=== PATIENT | male | born 1955 | race Caucasian/White ===

== ENCOUNTER 2023-07-13 04:15 | Emergency (ER) | payer MEDICARE, MEDICAID, SELFPAY ==
[2023-07-13 04:28] VITALS: BP 141/71; PULSE 55; RESP 16; O2SAT 100; BMI 24.3
--- NOTE | 2023-07-13 05:03 | ED_ITS ---
HPI - General Adult General Chief complaint: ETOH/Substance Use Stated complaint: ANXIETY AND ETOH Time Seen by Provider: 07/13/23 05:03 Source: patient Mode of arrival: EMS History of Present Illness HPI narrative: 67-year-old male who states that he accidentally called 911 twice and as per EMS they had informed him that he felt like he was having a heart attack which patient adamantly denies at this time. Patient refused transportation the 1st time but then states that he was talked into it on the 2nd time. Related Data Allergies Allergy/AdvReac Type Severity Reaction Status Date / Time Unable to Assess Allergy Verified 07/13/23 04:52 Review of Systems Review of Systems: Pertinent positives and negatives as stated in HPI PMFSH Past Medical History Source: nursing notes reviewed Social History Social History Advance Directives: No Advance Directives Information Provided: No Physical Exam ED Vital Signs: Vital Signs - 24 hr 07/13/23 04:28 Pulse Rate 55 Respiratory Rate 16 Blood Pressure 141/71 H Pulse Oximetry 100 Oxygen Delivery Method Room Air BMI result Body Mass Index 24.3 VITAL SIGNS: Reviewed. GENERAL: Well developed, well nourished, in no acute distress. HEAD: Normocephalic/atraumatic EYES: PERRLA, EOMI LUNGS: Normal breath sounds. No adventitious sounds or accessory muscle use. SpO2<100> CARDIOVASCULAR: Regular rate and rhythm without noted murmurs ABDOMEN: Soft, non-tender, non-distended with bowel sounds. MUSCULOSKELETAL: No tenderness, deformities, or effusions noted on gross inspection. EXTREMITIES: No cyanosis, clubbing or edema. SKIN: Inspection of the skin reveals no rashes NEUROLOGIC: Alert and oriented x 4. Strength and sensation to light touch were grossly intact x 4. Medical Decision Making Medical Decision Making MDM Narrative: 67-year-old male with history and clinical presentation of having been transported to the emergency room without wanting to be here . Patient is declining all EKGs/attempts to draw lab work, on ambulating with the patient he is observed to ambulate with a steady gait he is not noted to be slurring his words and he is alert and oriented. Patient demanded to be allowed to sign out against medical advice and after a discussion of risks and benefits he was discharged against medical advice. Differential Diagnosis Differential Diagnoses: The differential diagnosis associated with the pres entation includes Please see the discussion above Admission/Observation Consideration of admission/observation: Escalation of care including admission/observation considered Please see the discussion above Critical Care Time Critical Care Time Critical Care Time: Yes Total Critical Care Time: 30 Attestation: I personally attest to this time spent taking care of the patient. Discharge Plan Discharge Clinical Impression: Chest pain Patient Disposition: Left Against Medical Advice Instructions: Chest Pain (ED) Additional Instructions: Please follow-up with primary care doctor in the morning. Stand Alone Forms: Against Medical Advice Interventions: ED Discharge Assessment Last Done: 07/13/23 05:11 Discharge Date/Time: 07/13/23 05:12
--- NOTE | 2023-07-13 05:05 | PC.NURSE ---
Pt presents to ED with ETOH. He called 911 twice saying he felt like he had a heart attack. Pt stated he accidentally called. Pt began yelling at staff stating he was going to leave AMA beginning as soon as he got off the EMS stretcher. I attempted to get an EKG on the pt and he refused, saying he doesn't need to prove anything and he wants to go home. Dr Her assessed the pt and determined he can be discharged.
== END 2023-07-13 05:12 | disposition left against medical advice (07) ==
LOC: HO.ED 05:11
PROVIDERS: Emergency Provider Student in an Organized Health Care Education/Training Program
DX: R07.9 Chest pain, unspecified (principal)
CPT/HCPCS: 93005; 99282; 99283

== ENCOUNTER 2023-12-01 20:56 | Inpatient (IN) | payer OTHER, SELFPAY ==
--- NOTE | 2023-12-01 | ECG_ITS ---
Test Reason : BRADYCARDIA Blood Pressure : / mmHG Vent. Rate : 046 BPM Atrial Rate : 046 BPM P-R Int : 190 ms QRS Dur : 088 ms QT Int : 530 ms P-R-T Axes : 050 011 037 degrees QTc Int : 463 ms Sinus bradycardia Otherwise normal ECG No previous ECGs available Referred By: Generic ED Physician Electronically Signed By:LALA VILCHIS MD
--- NOTE | ~2023-12-01 | XR_ITS ---
EXAMINATION: XR CHEST CLINICAL INFORMATION: Weakness COMPARISON: None available. TECHNIQUE: Upright frontal portable view of the chest was obtained. FINDINGS: Devices overlie the patient. There is rotation to left. There is calcification of the aorta. The cardiac size is within normal limits. There is no hilar mass. There is no alveolar edema. The diaphragm is high. There is no focal pneumonia, pleural fluid or pneumothorax. I suspect convex right lower thoracic scoliosis. XR/XR chest 1V IMPRESSION: No pneumonia or edema.
--- NOTE | ~2023-12-01 | CT_ITS ---
EXAMINATION: CT HEAD WITHOUT CONTRAST CLINICAL INFORMATION: Change in mental status. COMPARISON: None available. TECHNIQUE: Contiguous axial imaging was performed from the skull base to vertex without intravenous administration of contrast. This CT examination was performed using dose optimization techniques as appropriate, variously including the following: *Automated exposure control. *Adjustment of mA and/or kV according to patient size (this includes techniques or standardized protocols for targeted exams where dose is matched to indication/reason for exam; i.e. extremities or head). *Use of iterative reconstruction technique. DLP: 836 mGy-cm FINDINGS: The ventricles and sulci are mildly prominent consistent with diffuse atrophy. No visualized masses or midline shift are seen. There is no intra-axial or extra-axial hemorrhage. There are no fluid collections. Mild decreased attenuation is seen in the periventricular white matter compatible with chronic small vessel ischemic disease. The waggoner-white discrimination is preserved. The included paranasal sinuses and mastoid air cells are well aerated. The calvarium is intact. CT/CT head/brain wo IV con IMPRESSION: No intracranial hemorrhage or mass effect. Mild generalized atrophy and chronic small vessel white matter ischemic changes.
[2023-12-01 21:12] VITALS: BP 98/57; PULSE 49; O2SAT 85
[2023-12-01 21:16] VITALS: BP 95/49; PULSE 46; RESP 16; TEMP 36.8; O2SAT 96; BMI 26.5
[2023-12-01 21:20] LABS: MANUAL DIFF FLAG NO
[2023-12-01 21:23] LABS: Basophils Absolute Auto 0.1 X10*3/uL (0.0-0.2); Basophils Percent Auto 0.9 % (0-2); Eosinophils Absolute Auto 0.2 X10*3/uL (0.0-0.4); Eosinophils Percent Auto 3.5 % (0-4); Hematocrit 29.6 % (42.0-52.0); Hemoglobin 10.4 g/dl (14.0-18.0); Imm Gran Abs Auto 0.02 X10*3/uL (0.00-0.03); Imm Gran Pct Auto 0.3 % (0.0-0.4); Lymphocytes Absolute Auto 1.2 X10*3/uL (1.2-4.9); Lymphocytes Percent Auto 21.5 % (20-40); Mean Corpuscular HGB Conc 35.1 g/dl (31.0-36.0); Mean Corpuscular Hemoglobin 32.6 pg (27.0-33.0); Mean Corpuscular Volume 92.8 fL (80.0-98.0); Mean Platelet Volume 11.3 fL (9.4-12.4); Monocytes Absolute Auto 0.7 X10*3/uL (0.1-1.2); Monocytes Percent Auto 12.7 % (2-11); Neutrophils Absolute Auto 3.5 x10*3/uL (2.0-8.3); Neutrophils Percent Auto 61.1 % (45-73); Platelet Count 213 X10*3/uL (160-400); Red Blood Count 3.19 X10*6/uL (4.60-5.80); Red Cell Distribution Width 12.4 % (11.0-16.0); White Blood Count 5.8 X10*3/uL (4.8-10.8)
--- OUTSIDE RECORDS SUMMARY | 2023-12-01 21:44 | XMS_ITS | Continuity of Care Document ---
Author Organization [facility] Address [address] [place] [address]- Care Team Providers Care Rehabilitation Attendant Name Role Phone Kirk Bahena MD Primary Care Physician [phone] Encounter [facility] Date(s): 09/12/21 - 10/12/21 [facility] [address] [place] [address]- Allergies, Adverse Reactions, Alerts No Known Allergies Immunizations Given and Recorded Vaccine Date Status Refusal Reason tetanus/diphtheria/pertussis, acel(Tdap) 10/07/14 Given Not Given Vaccine Date Status Refusal Reason pneumococcal 13-valent vaccine 01/28/20 Not Given Patient Refuses influenza virus vaccine, inactivated 01/28/20 Not Given Patient Refuses Medications clonazePAM 1 mg oral tablet 1 tablet = 1 mg, By Mouth, 3 times a day, PRN Anxiety, 0 Refills, Maintenance, 01/29/20 13:21:00 EDT, Tablet Start Date: 01/29/20 Status: Ordered Cymbalta 20 mg oral enteric coated capsule 1 capsule = 20 mg, By Mouth, Daily, 0 Refills, Maintenance, 06/29/17 20:09:19 Start Date: 06/29/17 Status: Ordered Doxazosin = 8 mg, By Mouth, Daily at bedtime, 0 Refills, Maintenance, 08/05/14 14:08:52 Start Date: 08/05/14 Status: Ordered Flomax 0.4 mg oral capsule 0.4 mg, 1, capsule, By Mouth, Daily, # 14 capsule, Refills 0, Tot. Refills 0, Maintenance, 01/28/2013:01:00 EDT, Print Requisition Start Date: 01/29/20 Stop Date: 02/12/20 Status: Ordered Imdur 60 mg oral tablet, extended release 60 mg, 1, tablet, By Mouth, Daily in AM, # 30 tablet, Refills 0, Maintenance, 06/29/17 20:06:32 Start Date: 06/29/17 Status: Ordered Keppra 500 mg oral tablet = 500 mg, By Mouth, 2 times a day, # 60 tablet, 0 Refills, Maintenance, 07/03/17 8:52:46, Tablet Start Date: 07/03/17 Status: Ordered Labetalol = 100 mg, By Mouth, 2 times a day, 0 Refills, Maintenance, 10/07/14 16:35:08 Start Date: 10/07/14 Status: Ordered Lasix 40 mg oral tablet 40 mg, 1, tablet, By Mouth, Daily, Refills 0, Maintenance, 02/20/17 9:57:45 Start Date: 02/20/17 Status: Ordered methadone 10 mg oral tablet 1 tablet = 10 mg, By Mouth, Every 6 hours, 0 Refills, Maintenance, 02/20/17 9:53:51 Start Date: 02/20/17 Status: Ordered oxyCODONE 30 mg oral tablet 1 tablet = 30 mg, By Mouth, Every 6 hours, PRN for pain, 0 Refills, Maintenance, 01/29/19 11:23:14 EDT, Tablet, Partial fill upon patient request Start Date: 01/29/19 Status: Ordered Pepto Bismol Maximum Strength 525 mg/15 ml oral suspension 15 mL = 525 mg, By Mouth, 4 times a day, 0 Refills, Maintenance, 08/05/14 14:10:02 Start Date: 08/05/14 Status: Ordered traZODone 50 mg oral tablet 25 mg, By Mouth, Daily at bedtime, PRN, Refills 0, Maintenance, Insomnia, 07/03/17 8:52:26 Start Date: 07/03/17 Status: Ordered Problem List Condition Effective Dates Status Health Status Inform ant Abdominal pain(Confirmed) Active Bony pelvic pain(Confirmed) Active Chronic hepatitis C(Confirmed) 2004 Active 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 Right L1-L2 hemilaminotomy and resection of large L1-L2 free fragment. 2. Microdissection for L1-L2 disk herniation, right side greater than left by Yuliya Pena MD. at [facility]. Social History Social History Type Response Tobacco Use: 4 or less cigar ettes(less than 1/4 pack)/day in last 30 days. Sex
--- OUTSIDE RECORDS SUMMARY | 2023-12-01 21:44 | XMS_ITS | Continuity of Care Document ---
Author Organization [facility] Address [address] [place] [address]- Care Team Providers Care Cabinetmaker Maintenance Name Role Phone Kirk Bahena MD Primary Care Physician [phone] Encounter [facility] Date(s): 01/27/20 - 01/29/[address] [address]- [facility] Discharge Disposition: A-D/C Home Attending Physician: Arlin Murphy MD Admitting Physician: Arlin Murphy MD Referring Physician: Not on Staff, Referring MD Allergies, Adverse Reactions, Alerts Substance Reaction Severity Status NKA Active Immunizations Given and Recorded Vaccine Date Status Refusal Reason tetanus/diphtheria/pertussis, acel(Tdap) 10/07/14 Given Not Given Vaccine Date Status Refusal Reason influenza virus vaccine, inactivated 01/28/20 Not Given Patient Refuses pneumococcal 13-valent vaccine 01/28/20 Not Given Patient Refuses Medications clonazePAM [...] 02/20/17 9:57:45 Start Date: 02/20/17 Status: Ordered Metamucil 2.5 g oral wafer 2 each = 5 Gm, By Mouth, 3 times a day, # 90 each, 11 Refills, Acute 02/01/20 11:31:00 EDT, 01/29/19 11:30:57 EDT Start Date: 01/29/19 Stop Date: 02/01/20 Status: Ordered methadone 10 mg oral tablet [...] than left by Yuliya Pena MD. at [facility]. Vital Signs Most recent to oldest [Reference Range]: 1 2 3 4 Height 170 cm (01/28/20 4:50 PM) 170 cm (01/28/20 11:47 AM) 170 cm (01/28/20 8:21 AM) Weight 82 kg (01/27/20 3:34 PM) 82 kg (01/27/20 12:48 PM) 82 kg (01/27/20 7:52 AM) Oxygen Saturation [94-100 %] 99 % (01/29/20 11:00 AM) 96 % (01/29/20 8:00 AM) 96 % (01/29/20 3:51 AM) Pulse Rate [55-90 bpm] 85 bpm (01/29/20 11:00 AM) 63 bpm (01/29/20 8:00 AM) 56 bpm (01/29/20 3:51 AM) Body Mass Index [18.5-24.99] 28.37 *H* (01/27/20 3:34 PM) 28.37 *H* (01/27/20 12:48 PM) 28.37 *H* (01/27/20 7:52 AM) Blood Pressure [90-138/55-84 mm Hg] 136/98mm Hg (01/29/20 11:00 AM) 134/76mm Hg (01/29/20 8:00 AM) 130/75mm Hg (01/29/20 3:51 AM) Respiratory Rate [16-30 br/min] 18 br/min (01/29/20 1:41 PM) 18 br/min (01/29/20 11:00 AM) 20 br/min (01/29/20 9:44 AM) 20 br/min (01/29/20 9:44 AM) Temperature [96.8-100.4 DegF] 97.3 DegF (01/29/20 11:00 AM) 98.1 DegF (01/29/20 8:00 AM) 97.9 DegF (01/29/20 3:51 AM) Liters per Minute 0 L/min (01/29/20 11:00 AM) 0 L/min (01/29/20 8:00 AM) Mode of Delivery (Oxygen) Room air (01/29/20 11:00 AM) Room air (01/29/20 8:00 AM) Room air (01/29/20 3:51 AM) Blood pressure sites Arm, left (01/29/20 11:00 AM) Arm, left (01/29/20 8:00 AM) Arm, left (01/29/20 3:51 AM) Temperature Route Temporal (01/29/20 11:00 AM) Temporal (01/29/20 8:00 AM) Temporal (01/29/20 3:51 AM) Dry Weight 82 kg (01/27/20 3:34 PM) 82 kg (01/27/20 12:48 PM) 82 kg (01/27/20 7:52 AM) Social History Social History Type Response Tobacco Use: 4 or less cigar ettes(less than 1/4 pack)/day in last 30 days. Sex
--- OUTSIDE RECORDS SUMMARY | 2023-12-01 21:44 | XMS_ITS | Continuity of Care Document ---
Author Organization [facility] Address [address] [place] [address]- Care Team Providers Care Academic Computing Director Name Role Phone Kirk Bahena MD Primary Care Physician Encounter [facility] Date(s): 10/06/21 - 11/05/21 [facility] [address] [place] [address]- Attending Physician: Daquan Duggan Admitting Physician: AdmDaquan woodall Referring Physician: AdmtrDaquan Allergies, Adverse Reactions, Alerts No Known Allergies [...] Bony pelvic pain(Confirmed) Active Chronic hepatitis C(Confirmed) 2005 Active Degeneration of lumbar inter vertebral disc(Confirmed) 2005 Active Passage of loose stools(Confirmed) Active Follow-up [...] than left by Yuliya Pena MD. at [facility]. Social History Social History Type Response Tobacco Use: 4 or less cigar ettes(less than 1/4 pack)/day in last 30 days. Sex
--- OUTSIDE RECORDS SUMMARY | 2023-12-01 21:44 | XMS_ITS | Continuity of Care Document ---
Author Organization [facility] ter Address [address] [place] [address]- Care Team Providers Care Customer Care Coordinator Name Role Phone Kirk Bahena MD Primary Care Physician [phone] Encounter [facility] Date(s): 01/29/20 - 02/28/[address] [address]- [facility] Attending Physician: Not on Staff, Attending MD Admitting Physician: Not on Staff, Admitting MD Referring Physician: Not on Staff, Referring [...] than left by Yuliya Pena MD. at [facility]. Social History Social History Type Response Tobacco Use: 4 or less cigar ettes(less than 1/4 pack)/day in last 30 days. Sex
--- OUTSIDE RECORDS SUMMARY | 2023-12-01 21:44 | XMS_ITS | Continuity of Care Document ---
Author Organization [facility] Address [address] [place] [address]- Care Team Providers Care Beck Operator Name Role Phone Kirk Bahena MD Primary Care Physician Encounter [facility] Date(s): 01/26/20 - 01/27/[address] [address]- [facility] Discharge Disposition: Transferred to short-term general hospit Attending Physician: Atul Frank MD Admitting Physician: Atul Frank MD Referring Physician: Not on Staff, Referring MD Allergies, Adverse Reactions, Alerts Substance Reaction Severity Status NKA Active Immunizations Given and Recorded Vaccine Date Status Refusal Reason tetanus/diphtheria/pertussis, acel(Tdap) 10/07/14 Given Medications Cymbalta 20 mg oral enteric coated capsule 1 capsule = 20 mg, By Mouth, Daily, 0 Refills, Maintenance, 06/29/17 20:09:19 Start Date: 06/29/17 Status: Ordered Doxazosin = 8 mg, By Mouth, Daily at bedtime, 0 Refills, Maintenance, 08/05/14 14:08:52 Start Date: 08/05/14 Status: Ordered Imdur 60 mg oral tablet, [...] than left by Yuliya Pena MD. at [facility]. Vital Signs Most recent to oldest [Reference Range]: 1 2 3 Height 163 cm (01/27/20 1:14 AM) 163 cm (01/26/20 11:02 PM) 163 cm (01/26/20 11:01 PM) Weight 81.8 kg (01/27/20 1:14 AM) 81.8 kg (01/26/20 11:02 PM) 81.8 kg (01/26/20 11:01 PM) Oxygen Saturation [94-100 %] 96 % (01/27/20:14 AM) 97 % (01/26/20 11:01 PM) Pulse Rate [55-90 bpm] 65 bpm (01/27/20 1:14 AM) 64 bpm (01/26/20 11:01 PM) Body Mass Index [18.5-24.99] 30.79 *>HHI* (01/27/20 1:14 AM) 30.79 *>HHI* (01/26/20 11:01 PM) Blood Pressure [90-138/55-84 mm Hg] 160/95mm Hg *H* (01/27/20 1:14 AM) 159/88mm Hg *H* (01/26/20 11:01 PM) Respiratory Rate [16-30 br/min] 17 br/min (01/27/20 1:14 AM) 18 br/min (01/26/20 11:01 PM) Temperature [96.8-100.4 DegF] 97.8 DegF (01/27/20 1:14 AM) Mode of Delivery (Oxygen) Room air (01/27/20 1:14 AM) Room air (01/26/20 11:01 PM) Blood pressure sites Arm, left (01/27/20 1:14 AM) Arm, left (01/26/20 11:01 PM) Temperature Route Oral (01/27/20 1:14 AM) Dry Weight 81.8 kg (01/27/20 1:14 AM) 81.8 kg (01/26/20 11:02 PM) 81.8 kg (01/26/20 11:01 PM) Weight Obtained Via Patient/family state d (01/26/20 11:01 PM) Dry Weight Obtained Via Patient/family s tated (01/26/20 11:01 PM) Social History Social History Type Response Tobacco Use: 4 or less cigar ettes(less than 1/4 pack)/day in last 30 days. Sex
--- OUTSIDE RECORDS SUMMARY | 2023-12-01 21:44 | XMS_ITS | Continuity of Care Document ---
Author Organization [facility] [place] Address [address] [place] [address]- Care Team Providers Care Contact Representative Name Role Phone Josef AMARO, Kirk Primary Care Physician Encounter [facility] Date(s): 09/20/21 - 11/02/21 [facility] [address] [place] [address]- Attending Physician: Idalmis AMARO, Vidal Fuentes Referring Physician: Kirk Bhaena MD Allergies, Adverse Reactions, Alerts No Known Allergies [...] than left by Yuliya Pena MD. at [facility]. Social History Social History Type Response Tobacco Use: 4 or less cigar ettes(less than 1/4 pack)/day in last 30 days. Sex
--- OUTSIDE RECORDS SUMMARY | 2023-12-01 21:44 | XMS_ITS | Continuity of Care Document ---
Author Organization [facility] Address [address] [place], [place] [address] [address], [address] [place] [address]- Care Team Providers Care Principal Planner Name Role Phone Kirk Bahena MD Primary Care Physician [phone] Encounter [facility] Date(s): 03/04/20 - 03/11/20 [facility] [address] [place] [address] Drive, [address] [place] [address]- [facility] Attending Physician: Gage Malik MD Allergies, Adverse Reactions, Alerts Substance Reaction [...] than left by Yuliya Pena MD. at [facility]. Social History Social History Type Response Tobacco Use: 4 or less cigar ettes(less than 1/4 pack)/day in last 30 days. Sex
--- OUTSIDE RECORDS SUMMARY | 2023-12-01 21:44 | XMS_ITS | Continuity of Care Document ---
Author Organization [facility] Address [address] [place] [address]- Care Team Providers Care District Wildlife Manager Name Role Phone Not on Staff, PCP Primary Care Physician Unavail able Encounter [facility] Date(s): 11/23/23 - 11/28/[address] [address]- Discharge Disposition: Transferred to [facility] Attending Physician: Charles Weir MD Admitting Physician: Charles Weir MD Referring Physician: Not on Staff, Referring MD Allergies, Adverse Reactions, Alerts No Known Allergies Immunizations Given and Recorded Vaccine Date Status Refusal Reason tetanus/diphtheria/pertussis, acel(Tdap) 10/07/14 Given Medications duloxetine 30 mg oral enteric coated capsule 1 capsule = 30 mg, By Mouth, Daily at bedtime, # 30 capsule, 0 Refills, Maintenance, 11/12/23 8:14:00 EDT, Capsule, [id number], Partial fill upon patient request if the prescription is for a schedule II opioid drug., 168, cm, 11/11/23 1... Start Date: 11/12/23 Status: Ordered duloxetine 60 mg oral enteric coated capsule 1 capsule = 60 mg, By Mouth, Daily, # 30 capsule, 0 Refills, Maintenance, 11/12/23 8:14:00 EDT, Capsule, [id number], Partial fill upon patient request if the prescription is for a schedule II opioid drug., 168, cm, 11/11/23 18:41:00 EDT... Start Date: 11/12/23 Status: Ordered ferrous sulfate 325 mg oral enteric coated tablet 325 mg, 1, tablet, By Mouth, Every Sunday, Sunday and Sunday, # 13 tablet, Refills 0, Tot. Refills 0, Maintenance, 11/12/23 8:15:00 EDT, Route to Pharmacy Electronically, [id number], Partial fill upon patient request if the prescript... Start Date: 11/12/23 Status: Ordered losartan 50 mg oral tablet 50 mg, Tablet, By Mouth, 11/28/23 9:00:00 EDT Start Date: 11/28/23 Stop Date: 11/28/23 Status: Completed losartan 50 mg oral tablet 50 mg, 1, tablet, By Mouth, Daily, # 30 tablet, Refills 0, Tot. Refills 0, Maintenance, 11/12/23 8:15:00 EDT, Route to Pharmacy Electronically, [id number], Partial fill upon patient request if the prescription is for a schedule II opioi... Start Date: 11/12/23 Status: Ordered melatonin 3 mg oral tablet 1 tablet = 3 mg, By Mouth, Daily at bedtime, PRN Insomnia, # 30 tablet, 0 Refills, Maintenance, 11/12/23 8:15:00 EDT, Tablet, [id number], Partial fill upon patient request if the prescription is for a schedule II opioid drug., 168, cm,... Start Date: 11/12/23 Status: Ordered Methadone Tablet 40 mg, Tablet, By Mouth, Once, Pt's current daily dose, Routine, 11/28/23 8:00:00 EDT, Stop date 11/28/23 8:00:00 EDT Start Date: 11/28/23 Stop Date: 11/28/23 Status: Completed Metoprolol Succinate ER 50 mg oral tablet, extended release 50 mg, XL Tablet, By Mouth, 11/28/23 9:00:00 EDT Start Date: 11/28/23 Stop Date: 11/28/23 Status: Completed Metoprolol Succinate ER 50 mg oral tablet, extended release 1 tablet = 50 mg, By Mouth, Daily, # 30 tablet, 0 Refills, Maintenance, 11/12/23 8:15:00 EDT, XL Tablet, [id number], Partial fill upon patient request if the prescription is for a schedule II opioid drug., 168, cm, 11/11/23 18:41:00 EDT... Start Date: 11/12/23 Status: Ordered Nicoderm C-Q Clear 21 mg/24 hr transdermal film, extended release 1 patch, Topically, Daily, remove before bedtime do not smoke while patch is on, # 30 patch, 0 Refills, Maintenance, 11/12/23 8:16:00 EDT, Patch, [id number], Partial fill upon patient request if the prescription is for a schedule II op... Start Date: 11/12/23 Status: Ordered polyethylene glycol 3350 oral powder for reconstitution = 17 Gm, By Mouth, Daily, dissolve in 4 to 8 oz of beverage, # 510 Gm, 0 Refills, Maintenance, 11/12/23 8:16:00 EDT, REC Powder, [id number], Partial fill upon patient request if the prescription is for a schedule II opioid drug., 17 Gm... Start Date: 11/12/23 Status: Ordered tamsulosin 0.4 mg oral capsule 0.4 mg, 1, capsule, By Mouth, Daily, # 30 capsule, Refills 0, Tot. Refills 0, Maintenance, 248:16:00 EDT, Route to Pharmacy Electronically, [id number], Partial fill upon patient request if the prescription is for a schedule II op... Start Date: 11/12/23 Status: Ordered traZODone 50 mg oral tablet 50 mg, 1, tablet, By Mouth, Daily at bedtime, PRN, # 30 tablet, Refills 0, Tot. Refills 0, Maintenance, Sleep, 11/12/23 8:16:00 EDT, Route to Pharmacy Electronically, [id number], Partial fill upon patient request if the prescription is... Start Date: 11/12/23 Status: Ordered Vitamin B1 100 mg oral tablet 100 mg, 1, tablet, By Mouth, Daily, # 30 tablet, Refills 0, Tot. Refills 0, Maintenance, 11/12/23 8:16:00 EDT, Route to Pharmacy Electronically, [id number], Partial fill upon patient request if the prescription is for a schedule II opio... Start Date: 11/12/23 Status: Ordered Problem List Condition Confirmation Course Effective Dates Status H ealth Status Informant Abdominal pain Confirmed Active Bony pelvic pain Confirmed Active Chronic hepatitis C Confirmed 2004 Active Degeneration of lumbar intervertebral disc Confirmed 2004 Active Passage of loose stools Confirmed Active Follow-up exam Confirmed Active Hand swelling Confirmed Active Hip pain, left Confirmed Active Hand injury RT Confirmed Active Knee pain, left Confirmed Active Low back pain Confirmed Active Lumbar microdiscectomy 1 Confirmed 01/11/11 Active Prolapsed lumbar intervertebral disc Confirmed Active 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 Right L1-L2 hemilaminotomy and resection of large L1-L2 free fragment. 2. Microdissection for L1-L2 disk herniation, right side greater than left by Yuliya Pena MD. at [facility]. Vital Signs Most recent to oldest [Reference Range]: 1 2 3 Height 168 cm (11/28/23 8:31 AM) 168 cm (11/28/23 3:43 AM) 168 cm (11/27/23 9:18 PM) Weight 65 kg (11/28/23 8:31 AM) 65 kg (11/28/23 3:43 AM) 65 kg (11/27/23 9:18 PM) Oxygen Saturation [94-100 %] 100 % (11/28/23 8:31 AM) 99 % (11/28/23 3:43 AM) 96 % (11/27/23 9:18 PM) Pulse Rate [55-90 bpm] 66 bpm (11/28/23 8:31 AM) 67 bpm (11/28/23 7:40 AM) 60 bpm (11/28/23 3:43 AM) Body Mass Index [18.5-24.99 kg/m2] 23.03 kg/m2 (11/28/23 8:31 AM) 23.03 kg/m2 (11/28/23 3:43 AM) 23.03 kg/m2 (11/27/23 9:18 PM) Blood Pressure [90-138/55-84 mm Hg] 170/121mm Hg *H* (11/28/23 8:31 AM) 170/121mm Hg *H* (11/28/23 7:40 AM) 170/121mm Hg *H* (11/28/23 7:40 AM) Respiratory Rate [16-30 br/min] 16 br/min (11/28/23 8:31 AM) 16 br/min (11/28/23 7:40 AM) 17 br/min (11/28/23 3:43 AM) Temperature [96.8-100.4 DegF] 97.9 DegF (11/28/23 8:31 AM) 97.7 DegF (11/28/23 3:43 AM) 97.8 DegF (11/27/23 9:18 PM) Liters per Minute 0 L/min (11/26/23 6:22 AM) 0 L/min (11/25/23 11:38 PM) Mode of Delivery (Oxygen) Room air (11/28/23 8:31 AM) Room air (11/28/23 3:43 AM) Room air (11/27/23 9:18 PM) Blood pressure sites Arm, right (11/28/23 8:31 AM) Arm, left (11/28/23 3:43 AM) Arm, left (11/27/23 9:18 PM) Temperature Route Oral (11/28/23 8:31 AM) Oral (11/28/23 3:43 AM) Oral (11/27/23 9:18 PM) Dry Weight 65 kg (11/28/23 8:31 AM) 65 kg (11/28/23 3:43 AM) 65 kg (11/27/23 9:18 PM) Social History Social History Type Response Tobacco Use: 4 or less cigar ettes(less than 1/4 pack)/day in last 30 days. Sex Male Consult note * Madi Linton DO: PERFORM, SIGN, VERIFY Event Display: Consult Authored Date: [id number] Patient: CHARLES GREENE Age: 68 years Sex: Male : 1955 Associated Diagnoses: None Author: Madi Linton DO Patient notes and prescription record was reviewed to provide medication recommendations while awaiting placement. Based upon record review, recommend restarting home medications (clonidine 0.1 mg BID PRN for anxiety, buspirone 10 mg BID, mirtazapine 15 mg QHS, duloxetine 60 mg in the morning and 30 mg at night, and trazodone 50 mg QHS PRN). While he has a prior prescription for Abilify noted in his history, it does not appear to have been filled beyond an initial low-dose trial. Recommend deferring further medication changes to the admitting inpatient psychiatric unit. These recommendations were communicated to Dr. Dowling. Hospital Progress note * Luanne Puckett RN: PERFORM, SIGN, VERIFY Event Display: Progress Note Hospital Authored Date: Patient: CHARLES GREENE Age: 68 years Sex: Male : 1955 Associated Diagnoses: None Author: Luanne Puckett RN Findings Evaluation Behavioral Resource RN Note: Chart and case reviewed due to referral to crisis, per Emergency Medicine Note 11/22: ???This 68-year-old male presents emergency department the chief complaint of inability to care for himself. The patient explains that he lives alone does have visiting nursing but he is not certain what medications he should take. He reports he has not eating or able to provide for himself. It is noted he had just been inpatient psychiatrically 10 days ago and discharged. Patient denies any active SI or HI but states he feels so despondent that he does not know what to do with himself. On physical examination he is alert and conversant he is cooperative he is nonlateralizing with 5 out of 5 motor strength throughout is alert and oriented x 3. Differential diagnosis includes depression, failure to thrive, electrolyte abnormality. Will check electrolytes and thyroid studies and consult case management?? 11/24: Chart reviewed- Pt recently discharged from [facility]. Has a long history of IPLOC for similar presentations of suicidality. Patient has not scored on the last two columbias, but endorses vague SI to Crisis in [facility] today. [facility] but will not be placed until after the isolation period for +COVID-19 test. RECOMMENDATIONS: 1:4 Observation safety monitoring Follow suicide precautions per policy ES 3.351 (see below) *NO PERSONAL BELONGINGS IN ROOM/CELL PHONE/TOOL KEEPER etc. Psych Consult order - recs in [facility]IS 11/23 Complete medication reconciliation and restart home medications Isolation precautions per policy for + COVID-19 Paper tray set up/no utensils for dietary order Remain vigilant about environmental safety Prioritize safety at all times: Set low threshold for calling code yellow if behavior escalates Consider ordering Proactive PRN medications to have available - for early signs of anxiety, restlessness, irritability Consider mouth-checks when administering PO medications. Pain and withdrawal may be contributing to irritability ??? treat proactively Suicide Precautions ([facility] ED): -If a patient answers ???yes?? to a suicide screening question the patient will be wanded to ensure no harmful items are available to the patient, given either paper scrubs or a patient gown withoutties to change into. An GINO 2 level will be assigned to the patient. -Level of Obs per [place] Suicide Severity Rating Scale: - High Risk (red) = Placement in ligature mitigated environment with 1:1 Constant Observation -Moderate Risk (orange) = Placement in ligature mitigated environment with Safety Checks 1:4 Observation -Low Risk (yellow) ??? Placement in ligature mitigated environment with Safety Checks 1:4 Observation -Personal belongings will be accounted for and thoroughly searched for potentially harmful items (e.g. razors, glass objects, electric cords, illicit drugs, prescription medications, and toxic substances that could be ingested) and secured away from the patient. A valuables form will be documented in [facility]IS. -Repeat [place] Suicide Severity Rating scale at minimum Q-12hrs, adjust care as needed. -All items brought into the patient???s room by visitors must be assessed to prevent unsafe items that could pose a safety risk to the patient. Any items that are considered unsafe will not be allowed in the patient area and sent home with the visitor. Please contact Behavioral Health Resource RN ??? Luanne Puckett on [place] [facility] with any questions or concerns. . Patient Care team information Care Team Personnel Name: Evan Hart RN Position: [facility] RN Member Role: Primary Care Nurse Name: Alisa Hatfield NP Position: [facility] Associate Professional Member Role: Primary Care Nurse Name: Haritha Penaloza RN Position: [facility] SN Pattern Technician Member Role: Primary Care Nurse Name: Yakelin Tucker RN Position: [facility] RN Member Role: Primary Care Nurse Name: Not on Staff, PCP Position: [facility] Physician (General Medicine) Member Role: PCP Name: Paris Han RN Position: [facility] RN Member Role: Primary Care Nurse Name: Ignacio Weber RN Position: [facility] RN Member Role: Primary Care Nurse Name: Tristan Morrison RN Position: [facility] RN Member Role: Primary Care Nurse Name: Brittany Espinal RN Position: [facility] RN Member Role: Primary Care Nurse Care Team Related Persons Name: RADHA TOUSSAINT Name: DERIC WH[place]NEY Address: [place] [address] Name: JENNIFER GREY Address: home [address] [place] [address] Name: DION GREY Address: home [address] [place] [address] Name: ADRIENNE ROSENBAUM Address: home [address], [place] Name: YENNIFER GREENE Address: [place] [address]
--- OUTSIDE RECORDS SUMMARY | 2023-12-01 21:44 | XMS_ITS | Continuity of Care Document ---
Author Organization [facility] Address [address] [place] [address]- Care Team Providers Care Outpatient Case Manager Name Role Phone Not on Staff, PCP Primary Care Physician Unavail able Encounter [facility] Date(s): 10/16/23 - 11/17/[address] [address] [phone] Attending Physician: Kevin Flores DO Admitting Physician: Kevin Flores DO Referring Physician: Kevin Flores DO Allergies, Adverse Reactions, Alerts No Known Allergies [...] 168, cm,... Start Date: 11/12/23 Status: Ordered Metoprolol Succinate ER 50 mg oral tablet, [...] than left by Yuliya Pena MD. at [facility]. Social History Social History Type Response Tobacco Use: 4 or less cigar ettes(less than 1/4 pack)/day in last 30 days. Sex Male Patient Care team information Care Team Personnel Name: Tanner RUIZ, Evan Position: [facility] RN Member Role: Primary Care Nurse Name: Liu PEOPLESOFT DEVELOPER, Alisa Guerrero Position: [facility] Associate Professional Member Role: Primary Care Nurse Name: Haritha Penaloza RN Position: [facility] SN Parking Inspector Member Role: Primary Care Nurse Name: Yakelin Tucker RN Position: [facility] RN Member Role: Primary Care Nurse Name: Not on Staff, PCP Position: [facility] Physician (General Medicine) Member Role: PCP Name: Paris Han RN Position: [facility] RN Member Role: Primary Care Nurse Name: Ignacio Weber RN Position: [facility] RN Member Role: Primary Care Nurse Name: Tristan Morrison RN Position: [facility] RN Member Role: Primary Care Nurse Name: Brittany Espinal RN Position: [facility] RN Member Role: Primary Care Nurse Care Team Related Persons Name: RADHA TOUSSAINT Name: DERIC WHITNEY Address: [place] [address] Name: JENNIFER GREY Address: home [address] [place] [id number] Name: DION GREY Address: home [address] [facility] [address] [place] [id number] Name: ADRIENNE ROSENBAUM Address: home [address] [place] [address] Name: YENNIFER GREENE Address: [place] [address]
--- OUTSIDE RECORDS SUMMARY | 2023-12-01 21:44 | XMS_ITS | Continuity of Care Document ---
Author Organization [facility] Address [address] [place] [address]- Care Team Providers Care Executive Vp Name Role Phone Kirk Bahena MD Primary Care Physician Encounter [facility] Date(s): 07/14/23 - 07/17/[address] [address]- Discharge Disposition: Transfer to [facility] Facility Attending Physician: Facundo Philippe DO Admitting Physician: Facundo Philippe DO Referring Physician: Not on Staff, Referring MD Allergies, Adverse Reactions, Alerts No Known Allergies Immunizations Given and Recorded Vaccine Date Status Refusal Reason tetanus/diphtheria/pertussis, acel(Tdap) 10/07/14 Given Medications Albuterol (Eqv-ProAir HFA) 90 mcg/inh inhalation aerosol 2 puffs, Inhalation, Every 6 hours, # 8.5 Gm, 0 Refills, Maintenance, 10/31/22 13:55:00 EDT, [id number], Partial fill upon patient request if the prescription is for a schedule II opioid drug., 2 puffs Inhalation Every 6 hours, 168, cm,... Start Date: 10/31/22 Status: Ordered amLODIPine 5 mg oral tablet 5 mg, 1, tablet, By Mouth, Daily, # 30 tablet, Refills 0, Maintenance, 10/30/22 15:52:00 EDT, Partial fill upon patient request if the prescription is for a schedule II opioid drug. Start Date: 10/30/22 Status: Ordered ARIPiprazole 2 mg oral tablet 2 mg, 1, tablet, By Mouth, Daily, # 30 tablet, Refills 0, Maintenance, 10/30/22 15:54:00 EDT, Partial fill upon patient request if the prescription is for a schedule II opioid drug. Start Date: 10/30/22 Status: Ordered clonazePAM 1 mg oral tablet 1 tablet = 1 mg, By Mouth, 3 times a day, PRN Anxiety, # 21 tablet, 0 Refills, Maintenance, 10/31/22 13:49:00 EDT, Tablet, [id number], Partial fill upon patient request if the prescription is for a schedule II opioid drug., 168, cm, 06... Start Date: 10/31/22 Stop Date: 11/07/22 Status: Ordered Cymbalta 20 mg oral enteric coated capsule = 60 mg, By Mouth, Daily at bedtime, 0 Refills, Maintenance, 06/29/17 20:09:19 EST Start Date: 06/29/17 Status: Ordered Doxazosin = 8 mg, By Mouth, 2 times a day, 0 Refills, Maintenance, 08/05/14 14:08:52 EDT Start Date: 08/05/14 Status: Ordered doxazosin 2 mg oral tablet 8 mg, Tablet, By Mouth, 07/16/23 21:00:00 EST Start Date: 07/16/23 Stop Date: 07/16/23 Status: Completed Flomax 0.4 mg oral capsule 0.4 mg, 1, capsule, By Mouth, Daily, # 14 capsule, Refills 0, Tot. Refills 0, Maintenance, 01/28/2013:01:00 EDT, Print Requisition Start Date: 01/29/20 Stop Date: 02/12/20 Status: Ordered folic acid 1 mg oral tablet 1 mg, By Mouth, Daily, # 30 each, Refills 0, Tot. Refills 0, Maintenance, 10/31/22 13:49:00 EDT, Route to Pharmacy Electronically, [id number], Partial fill upon patient request if the prescription is for a schedule II opioid drug., 168,... Start Date: 10/31/22 Status: Ordered Imdur 60 mg oral tablet, extended release 60 mg, 1, tablet, By Mouth, Daily in AM, # 30 tablet, Refills 0, Maintenance, 06/29/17 20:06:32 Start Date: 06/29/17 Status: Ordered Lasix 40 mg oral tablet 40 mg, 1, tablet, By Mouth, Daily, Refills 0, Maintenance, 02/20/17 9:57:45 Start Date: 02/20/17 Status: Ordered propranolol 60 mg oral capsule, extended release 60 mg, 1, capsule, By Mouth, Daily, # 30 capsule, Refills 5, Maintenance, 10/30/22 15:54:00 EDT, Partial fill upon patient request if the prescription is for a schedule II opioid drug. Start Date: 10/30/22 Status: Ordered pyridoxine 50 mg oral tablet 50 mg, By Mouth, Daily, # 30 tablet, Refills 0, Tot. Refills 0, Maintenance, 10/31/22 13:49:00 EDT,Route to Pharmacy Electronically, [id number], Partial fill upon patient request if the prescription is for a schedule II opioid drug., 1... Start Date: 10/31/22 Status: Ordered Suboxone 8 mg-2 mg sublingual film 1 film, Sublingual, 3 times a day, dissolve under the tongue, 0 Refills, Maintenance, 10/30/22 15:57:00 EDT, Film, Partial fill upon patient request if the prescription is for a schedule II opioid drug. Start Date: 10/30/22 Status: Ordered thiamine 100 mg oral tablet 100 mg, By Mouth, 2 times a day, # 30 tablet, Refills 0, Tot. Refills 0, Maintenance, 10/31/22 13:49:00 EDT, Route to Pharmacy Electronically, [id number], Partial fill upon patientrequest if the prescription is for a schedule II opioid... Start Date: 10/31/22 Status: Ordered traZODone 50 mg oral tablet 25 mg, By Mouth, Daily at bedtime, PRN, Refills 0, Maintenance, Insomnia, 07/03/17 8:52:26 Start Date: 07/03/17 Status: Ordered valsartan 40 mg oral tablet 40 mg, 1, tablet, By Mouth, Daily, # 60 tablet, Refills 0, Maintenance, 10/30/22 15:55:00 EDT, Partial fill upon patient request if the prescription is for a schedule II opioid drug. Start Date: 10/30/22 Status: Ordered Problem List Condition Confirmation Course [...] than left by Yuliya Pena MD. at [facility]. Vital Signs Most recent to oldest [Reference Range]: 1 2 3 Height 160 cm (07/17/23 8:17 AM) 160 cm (07/16/23 6:55 AM) 160 cm (07/15/23 10:08 PM) Weight 60 kg (07/17/23 8:17 AM) 60 kg (07/16/23 6:55 AM) 60 kg (07/15/23 10:08 PM) Oxygen Saturation [94-100 %] 100 % (07/17/23 8:17 AM) 99 % (07/16/23 4:47 PM) 99 % (07/16/23 6:55 AM) Pulse Rate [55-90 bpm] 77 bpm (07/17/23 8:17 AM) 81 bpm (07/16/23:47 PM) 72 bpm (07/16/23 6:55 AM) Body Mass Index [18.5-24.99 kg/m2] 23.44 kg/m2 (07/17/23 8:17 AM) 23.44 kg/m2 (07/16/23 6:55 AM) 23.44 kg/m2 (07/15/23 10:08 PM) Blood Pressure [90-138/55-84 mm Hg] 131/77mm Hg (07/17/23 8:17 AM) 118/67mm Hg (07/16/23 9:21 PM) 139/87mm Hg *H* (07/16/23 4:47 PM) Respiratory Rate [16-30 br/min] 16 br/min (07/17/23 8:17 AM) 18 br/min (07/16/23 4:47 PM) 16 br/min (07/16/23 6:55 AM) Temperature [96.8-100.4 DegF] 97 DegF (07/16/23 6:55 AM) 98.1 DegF (07/15/23 10:08 PM) 98.2 DegF (07/15/23 7:36 PM) Mode of Delivery (Oxygen) Room air (07/17/23 8:17 AM) Room air (07/16/23 4:47 PM) Room air (07/16/23 6:55 AM) Blood pressure sites Arm, right (07/17/23 8:17 AM) Arm, right (07/16/23 4:47 PM) Arm, right (07/16/23 6:55 AM) Temperature Route Oral (07/17/23 8:17 AM) Temporal (07/16/23 6:55 AM) Temporal (07/15/23 10:08 PM) Dry Weight 60 kg (07/17/23 8:17 AM) 60 kg (07/16/23 6:55 AM) 60 kg (07/15/23 10:08 PM) Social History Social History Type Response Tobacco Use: 4 or less cigar ettes(less than 1/4 pack)/day in last 30 days. Sex EKG study * Event Display: ECG 12-Lead Authored Date: Please click on pdf link to open report * Event Display: ECG 12-Lead Authored Date: Ventricular Rate: 61 BPM Atrial Rate: 61 BPM P-R Interval: 154 ms QRS Duration: 84 ms Q-T Interval: 474 ms QTC Calculation(Bazett): 477 ms P [place]: 49 degrees R [place]: 65 degrees T [place]: 45 degrees Normal sinus rhythm Normal ECG When compared with ECG of 03-JUL-2023 16:42, No significant change was found Confirmed by AMY PICHARDO MD ([id number]) on 07/16/2023 9:06:52 PM [employer]: AMY PICHARDO MD Consult note * Caleb Rodgers DO: PERFORM Event Display: Consultation Note Authored Date: Patient: ??CHARLES GREENE ? Age:??67 Years?Sex:??Male?:??1955? Extensive chart review was performed, and case discussed with treatment team.? In brief, this is a??67-year-old gentleman with past psychiatric history significant for major depressive disorder, posttraumatic stress disorder, unspecified anxiety disorder, severe alcohol use disorder, suicidality, and several prior inpatient psychiatric hospitalizations for treatment of the same, who initially presented to [facility] on 07/14/2023 for evaluation of suicidal ideation with plan to slit his wrists.?? Of note, the patient had recently been hospitalized at [facility] in 07/05/2023.??At this point in time, the patient has been medically cleared and referred to [facility] for evaluation and assistance with disposition for potential inpatient psychiatric hospitalization.?? Unfortunately, the patient is struggled with multiple episodes of psychomotor agitation necessitating droperidol 10 mg IM x 2, Ativan 2 mg x 1, Versed 5 mg x 1, and Thorazine 50 mg IM x 1 for treatment of the same.??The emergency psychiatry service was subsequently??consulted for evaluation of medication management.?? Records from this recent inpatient psychiatric hospitalization at is not readily??available for review including those medications he might have been discharged??on. In the interim, will start Trazodone??25 mg PO twice daily PRN insomnia/anxiety/mildagitation. Can also utilize Thorazine 50 mg PO/IM 3 times daily PRN agitation/psychosis +/- Ativan 1 mg PO/IM 3 times daily PRN severe agitation. The preference is for PO medications, but if the patient refuses the oral medications and there is sufficient acute safety concern, can judiciously utilize IM equivalents for severe agitation. No additional changes were made to scheduled psychotropic med ications at this time. Would note that these medications are only being utilized in the ER and/or medical floors while the patient awaits placement. Long-term need for these medications will need to be assessed by the patient's future treating psychiatrist. Disposition is ultimately deferred to [facility] Crisis services.?Vitals:?? 07/15/2023 02:33?Height ?160 cm 07/15/2023 02:33?Weight ?60 kg ? 07/15/2023 02:33?Dry Weight ?60 kg ? 07/15/2023 02:33?Body Mass Index ?23.44 kg/m2 ? 07/15/2023 02:33?Body surface area ?1.63 ? 07/15/2023 02:33?BSA [place] ?1.62 ? 07/15/2023 02:33?Temperature ?98.1 DegF 07/15/2023 02:33?Temperature route: ?Oral ? 07/15/2023 02:33?Pulse Rate ?66 bpm ? 07/15/2023 02:33?Respiratory Rate ?18 br/min ? 07/15/2023 02:33?Systolic Blood Pressure ?99 mm Hg ? 07/15/2023 02:33?Diastolic Blood Pressure ?58 mm Hg ? 07/15/2023 02:33?Blood pressure sites ?Arm, left ? 07/15/2023 02:33?Mean Arterial Pressure ?72 mm Hg ? 07/15/2023 02:33?Pulse Pressure ?41 mm Hg ? 07/15/2023 02:33?Oxygen Saturation ?98 % ? 07/15/2023 02:33?Mode of delivery (oxygen) ?Room air ?Active Problems??(18) Abdominal pain Bony pelvic pain C2 cervical fracture Chronic hepatitis C Degeneration of lumbar intervertebral disc Fecal urgency Follow-up exam Hand injury RT Hand swelling Hip pain, left Knee pain, left Low back pain Lumbar microdiscectomy Passage of loose stools Prolapsed lumbar intervertebral disc Radicular syndrome of lower limbs Thumb injury Urinary hesitancy ?Medications (7) Active SCHEDULED: (4) Amlodipine 5 mg Tablet (amLODIPine 5 mg oral tablet) ??5 mg, By Mouth, Daily Clotrimazole 1% Cream (Clotrimazole 1% Topical) ??1 application, Topically, 2 times a day Doxazosin 2 mg Tablet (doxazosin 2 mg oral tablet) ??8 mg, By Mouth, 2 times a day Valsartan 40 mg Tablet (valsartan 40 mg oral tablet) ??40 mg, By Mouth, Daily CONTINUOUS: (0) PRN: (3) ChlorproMAZINE 50 mg Tablet (Thorazine Tablet) ??50 mg, By Mouth, 3 times a day Lorazepam 1 mg Tablet (Ativan Tablet) ??1 mg, By Mouth, 3 times a day Trazodone 50 mg Tablet (traZODone 50 mg oral tablet) ??25 mg, By Mouth, 2 times a day? Hematology ? Event Name?? Event Result?? Date/Time?? WBC 8.2 k/mm3 07/15/23 00:35:00 RBC 2.92 m/mm3??Low 07/15/23 00:35:00 Hgb 9.4 Gm/dL??Low 07/15/23 00:35:00 Hct 28 %??Low 07/15/23 00:35:00 MCV 95.9 femtoliters??High 07/15/23 00:35:00 MCH 32.2 pg 07/15/23 00:35:00 MCHC 33.6 g/dL 07/15/23 00:35:00 Platelet Count 262 k/mm3 07/15/23 00:35:00 RDW-SD 50.2 femtoliters??High 07/15/23 00:35:00 MPV 10.6 femtoliters 07/15/23 00:35:00 Nucleated RBC (Automated) 0 #/100 WBC'S 07/15/23 00:35:00 Abs. NRBC 0 k/mm3 07/15/23 00:35:00 Abs. Neut 5.9 k/mm3 07/15/23 00:35:00 Abs. Lymph 1.3 k/mm3 07/15/23 00:35:00 Abs. Kidder 0.8 k/mm3 07/15/23 00:35:00 Abs. Eo 0.1 k/mm3 07/15/23 00:35:00 Abs. Baso 0.1 k/mm3 07/15/23 00:35:00 Neut % 71.9 % 07/15/23 00:35:00 Lymph % 16.1 % 07/15/23 00:35:00 Kidder % 9.2 % 07/15/23 00:35:00 Eos % 1.7 % 07/15/23 00:35:00 Baso % 0.6 % 07/15/23 00:35:00 Imm Gran 0.5 % 07/15/23 00:35:00 Abs. Imm Gran 0 k/mm3 07/15/23 00:35:00 Hold Blue Top SPECIMEN DISCARDED AFTER 4 HOURS. 07/15/23 00:35:00 ? Chemistry ? Event Name?? Event Result?? Date/Time?? Sodium 138 mmol/L 07/15/23 00:35:00 Potassium 4 mmol/L 07/15/23 00:35:00 Chloride 101 mmol/L 07/15/23 00:35:00 Bicarbonate Level 25 mmol/L 07/15/23 00:35:00 Anion Gap 12 07/15/23 00:35:00 Glucose Level 128 mg/dL??High 07/15/23 00:35:00 BUN 28 mg/dL??High 07/15/23 00:35:00 Creatinine-Blood 1.2 mg/dL 07/15/23 00:35:00 Estimated GFR Creatinine 65 ML/MIN/1.73 M2 07/15/23 00:35:00 Calcium 8.3 mg/dL??Low 07/15/23 00:35:00 High Sensitivity Troponin (HSTnT) 29 ng/L??High 07/15/23 04:15:00 TSH 1.93 uIU/mL 07/15/23 00:35:00 Ethanol, Serum or Plasma NONE DETECTED 07/15/23 00:35:00 Hold Gel Top SPECIMEN DISCARDED AFTER 1 WEEK 07/15/23 00:35:00 Hold De Dios Top SPECIMEN DISCARDED AFTER 1 WEEK 07/15/23 00:35:00 ? Microbiology ? Event Name?? Event Result?? Date/Time?? Influenza A PCR NEGATIVE 07/15/23 02:40:00 Influenza B PCR NEGATIVE 07/15/23 02:40:00 RSV PCR NEGATIVE 07/15/23 02:40:00 COVID-19 PCR Specimen Source NASAL 07/15/23 02:40:00 COVID-19 PCR Result NEGATIVE 07/15/23 02:40:00 ? Urine Stuudies ? Event Name?? Event Result?? Date/Time?? Est Creatinine Clearance 46.74 mL/min 07/15/23 01:02:49 ?ECG 12-Lead * Preliminary * ?? 00:23:14 Please click on pdf link to open report ?? ECG 12-Lead * Preliminary * ?? 00:23:14 Ventricular Rate: 61 BPM Atrial Rate: 61 BPM P-R Interval: 154 ms QRS Duration: 84 ms Q-T Interval: 474 ms QTC Calculation(Bazett): 477 ms P [place]: 49 degrees R [place]: 65 degrees T [place]: 45 degrees Normal sinus rhythm Normal ECG When compared with ECG of 03-JUL-2023 16:42, No significant change was found ?? [employer]: ,? Assessment:?? Depressive disorder unspecified Posttraumatic stress disorder by history Alcohol use disorder, severe Suicidal ideation Agitation ? 25 minutes time spent on this consult included review of the patient's medical records, lab and/or imaging studies, medication profiles, writing chart notes, communicating with healthcare professionals, with 15 minutes of the service devoted to medical consultative discussion with the treating/requesting provider, Dr. Tin Dill. ?? Caleb Rodgers D.O.?? Relief Docking Master, Emergency Psychiatry Services Division of Consultation-Liaison Psychiatry Department of Psychiatry [facility]?? Patient Care team information Care Team Personnel Name: Liu REID, Alisa Guerrero Position: [facility] Associate Professional Member Role: Primary Care Nurse Address: Address: [address], [place] [address] Name: Kirk Bahena MD Position: [facility] Outreach Member Role: PCP Address: Address: [address], [place] [address] Name: Haritha Penaloza RN Position: [facility] SN Rod Straightener Member Role: Primary Care Nurse Name: Yakelin Tucker RN Position: [facility] RN Member Role: Primary Care Nurse Care Team Related Persons Name: DERIC WH[place]NEY Address: [place] [address] Name: JENNIFER GREY Address: home [address] [place], [place] Name: DION GREY Address: home [address] [place], [place] Name: ADRIENNE ROSENBAUM Address: home [address] [place] [address] Name: YENNIFER GREENE Address: [place] [address]
--- OUTSIDE RECORDS SUMMARY | 2023-12-01 21:44 | XMS_ITS | Continuity of Care Document ---
Author Organization [facility] [place] Address [address] [place] [address]- Care Team Providers Care Natural Developer Name Role Phone Kirk Bahena MD Primary Care Physician Encounter [facility] [id number] Date(s): 06/07/21 - 07/07/21 [facility] [place] [address] [place], [place] [address] Attending Physician: Daquan Duggan Admitting Physician: AdmDaquan [...] than left by Yuliya Pena MD. at [facility]. Social History Social History Type Response Tobacco Use: 4 or less cigar ettes(less than 1/4 pack)/day in last 30 days. Sex
--- OUTSIDE RECORDS SUMMARY | 2023-12-01 21:44 | XMS_ITS | Continuity of Care Document ---
Author Organization [facility] Address [address] [place] [address]- Care Team Providers Care Unit Leader Name Role Phone Kirk Bahena MD Primary Care Physician Encounter [facility] Date(s): 10/30/22 - 10/31/[address] [address]- Discharge Disposition: A-D/C Home Attending Physician: Mami AMARO, Loreto Admitting Physician: Dick AMARO, Alivia Referring Physician: Haritha Pablo DO Allergies, Adverse Reactions, Alerts No Known Allergies Immunizations Given and Recorded Vaccine Date Status Refusal Reason tetanus/diphtheria/pertussis, acel(Tdap) 10/07/14 Given Not Given Vaccine Date Status Refusal Reason pneumococcal 13-valent vaccine 01/28/20 Not Given Patient Refuses influenza virus vaccine, inactivated 01/28/20 Not Given Patient Refuses Medications Albuterol (Eqv-ProAir HFA) 90 mcg/inh inhalation aerosol 2 puffs, Inhalation, Every 6 hours, # 8.5 Gm, 0 Refills, Maintenance, 10/31/22 13:55:00 EDT, [id number], Partial fill upon patient request if the prescription is for a schedule II opioid drug., 2 puffs Inhalation Every 6 hours, 168, cm,... Start Date: 10/31/22 Status: Ordered amLODIPine 5 mg oral tablet 5 mg, Tablet, By Mouth, 10/31/22 13:47:00 EDT Start Date: 10/31/22 Stop Date: 10/31/22 Status: Completed amLODIPine 5 mg oral tablet 5 mg, [...] a schedule II opioid drug., 168, cm, ... Start Date: 10/31/22 Stop Date: 11/07/22 Status: Ordered Cymbalta 20 mg oral enteric coated capsule = 60 mg, By Mouth, Daily at bedtime, 0 Refills, Maintenance, 06/29/17 20:09:19 EST Start Date: 06/29/17 Status: Ordered Doxazosin = 8 mg, By Mouth, 2 times a day, 0 Refills, Maintenance, 08/05/14 14:08:52 EDT Start Date: 08/05/14 Status: Ordered Flomax 0.4 [...] 02/20/17 9:57:45 Start Date: 02/20/17 Status: Ordered nicotine 14 mg/24 hr transdermal film, extended release 1 patch, Topically, Daily, for 30 days, # 30 patch, 0 Refills, Acute 11/30/22 13:50:00 EDT, 10/31/22 13:50:00 EDT, Patch, [id number], Partial fill upon patient request if the prescription is for a schedule II opioid drug., 1 patch Topic... Start Date: 10/31/22 Stop Date: 11/30/22 Status: Ordered propranolol 60 mg oral capsule, [...] valsartan 40 mg oral tablet 40 mg, Tablet, By Mouth, 10/31/22 13:47:00 EDT Start Date: 10/31/22 Stop Date: 10/31/22 Status: Completed valsartan 40 mg oral tablet 40 mg, [...] than left by Yuliya Pena MD. at [facility]. Results Radiology Reports * Exam Date Time Procedure Performing Provider Status 10/30/22 7:57 PM Chest Portable Vivian Ochoa; Auth (Verified) Notes: (Chest Portable) Reason For Exam: hypoxia, seizure;Other: RESULT: Chest Portable Chest Portable Reason: Other:; hypoxia, seizure; Clinical Question(s): Pneumonia COMPARISON: 04/14/2021 FINDINGS: LINES AND TUBES: None. LUNGS AND PLEURA: Limited by rotation. Vascular engorgement. Probable scarring or atelectasis in the left lung base. HEART, MEDIASTINUM AND BROOK: Unchanged. BONES AND SOFT TISSUES: No acute abnormality. IMPRESSION: Vascular congestion. No definite focal pneumonia. WSN: [id number] Ordering Physician: Yoli Nugent Dictated By: Merritt Woodruff MD Dictated Date/Time: 10/30/22 8:38 pm Reviewed By: Merritt Woodruff MD Signed By: Merritt Woodruff MD Signed Date/Time: 10/30/22 8:38 pm Transcribed By: CANDACE Transcribed Date/Time: 10/30/22 8:37 pm * Exam Date Time Procedure Performing Provider Status 10/30/22 12:[address] Cervical Spine W/O Contrast Lay Gonzalez; Auth (Verified) Notes: (CT Cervical Spine W/O Contrast) Reason For Exam: Trauma RESULT: CT Cervical Spine W/O Contrast CT Head/Brain W/O Contrast, CT Cervical Spine W/O Contrast INDICATION: Hx of Present Illness: pt with history of one previous seizure 6 months ago presents for witnessed seizure while on couch. tonic clonic reported. fell forward off couch, placed in c-collar. denies injury. found to be postictal for about 10 minutes. witnessed by his INTERLOCKING AND SIGNAL MECHANIC.; Reason: Trauma;Clinical Question(s): Hematoma TECHNIQUE: Noncontrast head CT using axial technique was reconstructed in axial and coronal planes.Noncontrast spiral CT through the cervical spine was formatted in 3 planes. Automatic tube modulation was used for the cervical spine and iterative dose reconstruction was used for both the head and cervical spine to optimize scan parameters and image quality. CTDIvol Body: 7.84 mGy, DLP Body: 169 mGy*cm. CTDIvol Head: 47.67 mGy, DLP Head: 793 mGy*cm. COMPARISON: 03/30/2021 FINDINGS: Merchandise Deliverer View Findings, Lines and Tubes: None. BRAIN AND EXTRA-AXIAL SPACES: No parenchymal hemorrhage, midline shift, or mass effect. De Dios-white matter differentiation is wellpreserved. No acute infarct. Negative insular ribbon sign. Atherosclerotic vascular calcification of the carotid arteries but negative hyperdense vessel sign. Mild prominence of the ventricles and sulci consistent with parenchymal volume loss. Moderate low-density white matter changes. No subarachnoid hemorrhage. No subdural or epidural collection. CALVARIUM, SKULL BASE, AND SOFT TISSUES: No fractures or suspicious bony lesions. Minimal mucosal thickening present in the ethmoid air cells. The paranasal sinuses and mastoid air cells are otherwise clear. Visualized orbits and globes are intact. The extracranial soft tissues are unremarkable. CERVICAL SPINE: No fracture. No acute osseous abnormalities. Healed deformity of prior C2 fracture, as before. Normal alignment. No locked or perched facet. Moderate multilevel degenerative disc space narrowingand end plate irregularity. OTHER BONES: No acute abnormality. CERVICAL SOFT TISSUES AND LUNG APICES: Normal soft tissues. Lung apices show centrilobular <1 mm groundglass nodules diffusely. IMPRESSION: No acute abnormality of the head or cervical spine. Lung apices show numerous tiny centrilobular groundglass nodules, which can be seen with inflammation/infection. Consider respiratory bronchiolitis, particularly if patient has active smoking or smoke exposure history. WSN: [id number] Ordering Physician: Haritha Pablo Dictated By: Maryjo Iverson MD Dictated Date/Time: 10/30/22 1:29 pm Reviewed By: Maryjo Iverson MD Signed By: Maryjo Iverson MD Signed Date/Time: 10/30/22 1:29 pm Transcribed By: CANDACE Transcribed Date/Time: 10/30/22 1:09 pm * Exam Date Time Procedure Performing Provider Status 10/30/22 12:[address] Head/Brain W/O Contrast Nereida Gonzalez; Auth (Verified) Notes: (CT Head/Brain W/O Contrast) Reason For Exam: Trauma RESULT: CT Head/Brain W/O Contrast CT Head/Brain W/O Contrast, CT Cervical Spine W/O Contrast INDICATION: Hx of Present Illness: pt with history of one previous seizure 6 months ago presents for witnessed seizure while on couch. tonic clonic reported. fell forward off couch, placed in c-collar. denies injury. found to be postictal for about 10 minutes. witnessed by his INTERLOCKING AND SIGNAL MECHANIC.; Reason: Trauma;Clinical Question(s): Hematoma TECHNIQUE: Noncontrast head CT using axial technique was reconstructed in axial and coronal planes.Noncontrast spiral CT through the cervical spine was formatted in 3 planes. Automatic tube modulation was used for the cervical spine and iterative dose reconstruction was used for both the head and cervical spine to optimize scan parameters and image quality. CTDIvol Body: 7.84 mGy, DLP Body: 169 mGy*cm. CTDIvol Head: 47.67 mGy, DLP Head: 793 mGy*cm. COMPARISON: 03/30/2021 FINDINGS: Merchandise Deliverer View Findings, Lines and Tubes: None. BRAIN AND EXTRA-AXIAL SPACES: No parenchymal hemorrhage, midline shift, or mass effect. De Dios-white matter differentiation is wellpreserved. No acute infarct. Negative insular ribbon sign. Atherosclerotic vascular calcification of the carotid arteries but negative hyperdense vessel sign. Mild prominence of the ventricles and sulci consistent with parenchymal volume loss. Moderate low-density white matter changes. No subarachnoid hemorrhage. No subdural or epidural collection. CALVARIUM, SKULL BASE, AND SOFT TISSUES: No fractures or suspicious bony lesions. Minimal mucosal thickening present in the ethmoid air cells. The paranasal sinuses and mastoid air cells are otherwise clear. Visualized orbits and globes are intact. The extracranial soft tissues are unremarkable. CERVICAL SPINE: No fracture. No acute osseous abnormalities. Healed deformity of prior C2 fracture, as before. Normal alignment. No locked or perched facet. Moderate multilevel degenerative disc space narrowingand end plate irregularity. OTHER BONES: No acute abnormality. CERVICAL SOFT TISSUES AND LUNG APICES: Normal soft tissues. Lung apices show centrilobular <1 mm groundglass nodules diffusely. IMPRESSION: No acute abnormality of the head or cervical spine. Lung apices show numerous tiny centrilobular groundglass nodules, which can be seen with inflammation/infection. Consider respiratory bronchiolitis, particularly if patient has active smoking or smoke exposure history. WSN: [id number] Ordering Physician: Haritha Pablo Dictated By: Maryjo Iverson MD Dictated Date/Time: 10/30/22 1:29 pm Reviewed By: Maryjo Iverson MD Signed By: Maryjo Iverson MD Signed Date/Time: 10/30/22 1:29 pm Transcribed By: CANDACE Transcribed Date/Time: 10/30/22 1:09 pm Vital Signs Most recent to oldest [Reference Range]: 1 2 3 Height 168 cm (10/30/22 4:48 PM) 168 cm (10/30/22 3:51 PM) 168 cm (10/30/22 11:23 AM) Weight 70.6 kg (10/30/22 4:48 PM) 70 kg (10/30/22 11:04 AM) Oxygen Saturation [94-100 %] 96 % (10/31/22 1:00 PM) 97 % (10/31/22 12:00 PM) 97 % (10/31/22 11:00 AM) Pulse Rate [55-90 bpm] 52 bpm *L* (10/31/22 6:00 AM) 49 bpm *L* (10/31/22 4:00 AM) 42 bpm *L* (10/30/22 9:00 PM) Body Mass Index [18.5-24.99 kg/m2] 25.01 kg/m2 *H* (10/30/22 4:48 PM) Blood Pressure [90-138/55-84 mm Hg] 161/80mm Hg *H* (10/31/22 1:45 PM) 161/80mm Hg *H* (10/31/22 1:45 PM) 161/80mm Hg *H* (10/31/22 1:00 PM) Respiratory Rate [16-30 br/min] 11 br/min *L* (10/31/22 1:00 PM) 14 br/min *L* (10/31/22 12:00 PM) 15 br/min *L* (10/31/22 11:00 AM) Temperature [96.8-100.4 DegF] 98.2 DegF (10/31/22 1:00 PM) 98.0 DegF (10/31/22 11:00 AM) 98.4 DegF (10/31/22 8:00 AM) Liters per Minute 2 L/min (10/30/22 2:17 PM) Mode of Delivery (Oxygen) Room air (10/31/22 1:00 PM) Room air (10/31/22 12:00 PM) Room air (10/31/22 11:00 AM) Blood pressure sites Arm, left (10/31/22 1:00 PM) Arm, left (10/31/22 12:00 PM) Arm, left (10/31/22 11:00 AM) Temperature Route Oral (10/31/22 1:00 PM) Oral (10/31/22 11:00 AM) Oral (10/31/22 8:00 AM) Dry Weight 70 kg (10/30/22 4:48 PM) 70 kg (10/30/22 11:04 AM) Weight Obtained Via Bed scale (10/30/22 4:48 PM) Patient/family stated (10/30/22 11:04 AM) Dry Weight Obtained Via Patient/family s tated (10/30/22 4:48 PM) Patient/family stated (10/30/22 11:04 AM) Social History Social History Type Response Tobacco Use: 4 or less cigar ettes(less than 1/4 pack)/day in last 30 days. Sex History and physical note * Yoli Richards: PERFORM Event Display: History and Physical Hospital Authored Date: [id number] Patient: ??CHARLES GREENE ? Age:??67 Years?Sex:??Male?:??1955?? Chief Complaint/Reason for Consultation seizure History of Present Illness This is a 67-year-old male with history of prior seizures, alcohol use, tobacco dependence, hypertension, chronic pain on Suboxone who presents to the hospital after a witnessed seizure.?? Patient has been in his usual state of health.?? In the beginning of October he was taken off his methadone and oxycodone and switched over to Suboxone and his home INTERLOCKING AND SIGNAL MECHANIC says he has been having some increased pain c ontrol difficulty related to this.?? He does drink about a sixpack per day and this is typical for him, no increased or decreased use.?? He takes the clonazepam as needed and has not abruptly discontinued it.?? Today he was sitting on the couch and his PCP witnessed him to have a tonic-clonic seizure lasting about 2 minutes which caused him to fall off the couch and an ambulance was called.?? He appeared to be postictal for about 10 minutes but did return to his baseline mentation when he got here.?? While being observed in the ER he had another tonic-clonic seizure and was given Ativan. He was worked up for seizures back in 2017, it was felt that alcohol was playing a role but he was also s tarted on Keppra at that time given frequency of seizures and inability to rule out concurrent seizure disorder. According to his pharmacy he has not filled it since at least 2020. ?? His vital signs are stable.?? Initially documented as being on oxygen but weaned to room air without hypoxia.?? Normal white count, chronic anemia, stable electrolytes and renal function.?? CT of the head and cervical spine showed no acute pathology.?? There is question of some bronchiolitis on the visualized portions of the lungs.?? The patient was given Ativan and a bolus of saline in the ER. Review of Systems POSTIVE ROS noted in *bold* Constitutional: no weight loss, fever, chills or fatigue HEENT: no cough, congestion, rhinorrhea. No vision change or blurred vision Skin: no rash or itching Cardiovascular: no chest pain or palpitations Respiratory: no shortness of breath, cough or sputum Gastrointestinal: no abdominal pain, nausea, vomiting, diarrhea, blood in vomit or stool Genitourinary: no dysuria, frequency or incontinence Neurologic: seizure,??no headache, dizziness, syncope, unilateral weakness, ataxia or numbness Musculoskeletal: chronic pain,??no muscle pain, back pain or joint pain/stiffness Hematologic: no bleeding or bruising Psychiatric: no depression or anxiety Endocrine: no reports of sweating, heat or cold intolerance Full ROS completed and is negative or as otherwise mentioned above. Objective Measurements?? Height: 168 cm (10/30/22) Weight: 70 kg (10/30/22) Dry Weight: 70 kg (10/30/22) ? Vital Signs?? Temperature: 98 DegF (10/30/22 16:00:00) Temperature Route: Oral (10/30/22 16:00:00) Pulse Rate:??50 bpm??Low (10/30/22 15:51:00) Respiratory Rate:??14 br/min??Low (10/30/22 16:00:00) Systolic Blood Pressure: 105 mm Hg (10/30/22 15:51:00) Diastolic Blood Pressure: 62 mm Hg (10/30/22 15:51:00) Blood pressure sites: Arm, left (10/30/22 15:51:00) Mean Arterial Pressure: 76 mm Hg (10/30/22 15:51:00) Pulse Pressure: 43 mm Hg (10/30/22 15:51:00) Oxygen Saturation: 94 % (10/30/22 16:00:00) Liters per Minute: 2 L/min (10/30/22 14:17:00) Mode of Delivery (Oxygen): Room air (10/30/22 16:00:00) Early Warning Score: 4 (10/30/22 16:25:40) ? Physical Exam ?General??mild sedation after Ativan, arouses easily and can carry brief conversation but overall a poor historian ?HEENT??Moist mucous membranes ?Lung??CTA bilaterally, no wheezes, rhonchi, or rales?Heart??regular rate and rhythm, no murmurs, gallops, or rubs?Abdomen soft, non-tender, non-distended, bowel sounds present?Extremities?? no clubbing, no cyanosis,??no pedal edema, peripheral pulses intact?Neurologic??Alert & oriented x 3, moving all extremities spontaneously, global weakness/poor participation but no focal weakness, sensation preserved throughout, CN 2-12 intact, no tremors notes, ?Skin??warm and dry ?Psychiatry mild sedation after Ativan, mood appropriate Assessment/Plan Assessment:??This is a 67-year-old male with history of prior seizures, alcohol use, tobacco dependence, hypertension, chronic pain on Suboxone who presents to the hospital after a witnessed seizure. ?? Tonic-clonic seizures (G40.409):?? INTERLOCKING AND SIGNAL MECHANIC witnessed 2 minute tonic-clonic seizure at home followed by second seizure in ER, s/p Ativan. Returned to baseline between events. Prior seizure hx felt related to ETOH (still drinks 6 pack/day) but has not changed his intake recently Chronically on benzodiazepines without any abrupt discontinuation Was also maintained on Keppra per??neurology for possible concurrent seizure disorder but has not filled Rx since at least 2020 CTH non acute without gross metabolic disturbance by workup thus far Discussed with neurology structural iron worker Dr. Mignon Ceballos: - Keppra load 1500mg IV now - then resume prior dose of 500 mg BID - monitor for evidence of withdrawal - obtain EEG - follow up UA, Tox screen, CXR (?bronchiolitis on CTH no respiratory symptoms or hypoxia) - Had normal MRI during initial seizure workup did not recommend repeat - seizure precautions, neuro checks, Ativan PRN seizure activity ?? Alcohol abuse (F10.10):?? drinks 6 pack/day, was felt to have withdrawal seizure in the past/hx withdrawal while hospitalized monitor on CIWA vitamins score driven Ativan ?? Depression (F32.A):??continue ability, duloxetine, trazodone, Klonopin PRN ?? HTN (hypertension) (I10):??home meds are held for now as BP was a bit soft after getting Ativan, will resume as appropriate ?? Opiate dependence (F11.20):??recently switched from methadone/oxycodone to Suboxone, verified by masspat ?? VTE Prophylaxis:??lovenox Code Status:??Full. His INTERLOCKING AND SIGNAL MECHANIC is Felicity can be reached at [phone] with questions ?Order Code Status:??Code Status Ordered Ongoing Medical Necessity:??seizures Tobacco Use Treatment:??1 ppd NRT ordered ?Tobacco Use Treatment Provided:??Cessation Medication Ordered Discharge Planning:??pending clinical improvement/further workup Histories Allergies Allergies ?(Active and Proposed Allergies Only) NKA? (Severity: Unknown severity, Onset: Unknown) ? Past Medical History/Problem List Active Problems??(18) Abdominal pain Bony pelvic pain C2 cervical fracture Chronic hepatitis C Degeneration of lumbar intervertebral disc Fecal urgency Follow-up exam Hand injury RT Hand swelling Hip pain, left Knee pain, left Low back pain Lumbar microdiscectomy Passage of loose stools Prolapsed lumbar intervertebral disc Radicular syndrome of lower limbs Thumb injury Urinary hesitancy ? Past Surgical History lumbar microdisectomy intestinal blockage Hip and pelvis surgery Appendectomy; Cholecystectomy; ? Social History Alcohol Details:??Use: Current. ??Frequency: 1-2 times per week. Substance Abuse Details:??Use: Current. ??Type: Marijuana. Tobacco Details:??Use: 4 or less cigarettes(less than 1/4 pack)/day in last 30 days. Details:??Current every day smoker, Tobacco user in household: Yes. Details:??Current every day smoker, Tobacco user in household: No. ??Other: less than 1ppd. ??Type:Cigarettes. ? Family History Father: Hypertension ? Medications Home Medications Amlodipine (amLODIPine 5 mg oral tablet)?5?Milligram?1?tablet?By Mouth?Daily Aripiprazole (ARIPiprazole 2 mg oral tablet)?2?Milligram?1?tablet?By Mouth?Daily Buprenorphine-Naloxone (Suboxone 8 mg-2 mg sublingual film)?1?Film?Sublingual?3 times aday?dissolve under the tongue Clonazepam (clonazePAM 1 mg oral tablet)?1?tab(s)?1?Milligram?By Mouth?3 times a day?as needed?Anxiety Doxazosin?8?Milligram?By Mouth?2 times a day Duloxetine (Cymbalta 20 mg oral enteric coated capsule)?60?Milligram?By Mouth?Daily at bedtime Furosemide (Lasix 40 mg oral tablet)?40?Milligram?1?tablet?By Mouth?Daily Isosorbide Mononitrate (Imdur 60 mg oral tablet, extended release)?60?Milligram?1?tablet?By Mouth?Daily in AM Propranolol (propranolol 60 mg oral capsule, extended release)?60?Milligram?1?capsule?By Mouth?Daily Tamsulosin (Flomax 0.4 mg oral capsule)?0.4?Milligram?1?capsule?By Mouth?Daily?for 14?Days Trazodone (traZODone 50 mg oral tablet)?25?Milligram?By Mouth?Daily at bedtime?as needed?Insomnia Valsartan (valsartan 40 mg oral tablet)?40?Milligram?1?tablet?By Mouth?Daily ? Results Recent Labs BLOOD COUNT & DIFF WBC 8.5 k/mm3 ()?? 10/30/2022 11:30 RBC 3.87 m/mm3 (Low)?? 10/30/2022 11:30 Hgb 12.1 Gm/dL (Low)?? 10/30/2022 11:30 Hct 35.2 % (Low)?? 10/30/2022 11:30 MCV 91.0 femtoliters ()?? 10/30/2022 11:30 MCH 31.3 pg ()?? 10/30/2022 11:30 MCHC 34.4 g/dL ()?? 10/30/2022 11:30 Platelet Count 239 k/mm3 ()?? 10/30/2022 11:30 RDW-SD 46.2 femtoliters ()?? 10/30/2022 11:30 MPV 11.4 femtoliters ()?? 10/30/2022 11:30 Nucleated RBC (Automated) 0.0 #/100 WBC'S ()?? 10/30/2022 11:30 Abs. NRBC 0.0 k/mm3 ()?? 10/30/2022 11:30 Abs. Neut 6.4 k/mm3 ()?? 10/30/2022 11:30 Abs. Lymph 1.1 k/mm3 ()?? 10/30/2022 11:30 Abs. Lamoure 0.7 k/mm3 ()?? 10/30/2022 11:30 Abs. Eo 0.2 k/mm3 ()?? 10/30/2022 11:30 Abs. Baso 0.1 k/mm3 ()?? 10/30/2022 11:30 Neut % 75.2 % ()?? 10/30/2022 11:30 Lymph % 13.2 % (Low)?? 10/30/2022 11:30 Lamoure % 8.3 % ()?? 10/30/2022 11:30 Eos % 2.1 % ()?? 10/30/2022 11:30 Baso % 0.7 % ()?? 10/30/2022 11:30 Imm Gran 0.5 % ()?? 10/30/2022 11:30 Abs. Imm Gran 0.0 k/mm3 ()?? 10/30/2022 11:30 ?? CHEM GENERAL Sodium 134 mmol/L ()?? 10/30/2022 11:30 Potassium 4.1 mmol/L ()?? 10/30/2022 11:30 Chloride 102 mmol/L ()?? 10/30/2022 11:30 Bicarbonate Level 24 mmol/L ()?? 10/30/2022 11:30 Anion Gap 8 ()?? 10/30/2022 11:30 Glucose Level 110 mg/dL (High)?? 10/30/2022 11:30 Glucose, POC 111 mg/dL (High)?? 10/30/2022 13:58 BUN 21 mg/dL ()?? 10/30/2022 11:30 Creatinine-Blood 1.1 mg/dL ()?? 10/30/2022 11:30 Estimated GFR Creatinine 73 ML/MIN/1.73 M2 ()?? 10/30/2022 11:30 Calcium 8.5 mg/dL (Low)?? 10/30/2022 11:30 ?? MISC. CHEMISTRY Hold Gel Top SPECIMEN DISCARDED AFTER 1 WEEK ()?? 10/30/2022 11:30 ?? URINE OTHER Est Creatinine Clearance 57.49 mL/min ()?? 10/30/2022 12:04 ?? VIROLOGY COVID-19 PCR Specimen Source NASAL ()?? 10/30/2022 14:35 COVID-19 PCR Result NEGATIVE ()?? 10/30/2022 14:35 ? EKG study * Event Display: EKG Authored Date: * Event Display: ECG 12-Lead Authored Date: Please click on pdf link to open report * Event Display: ECG 12-Lead Authored Date: Ventricular Rate: 66 BPM Atrial Rate: 66 BPM P-R Interval: 198 ms QRS Duration: 104 ms Q-T Interval: 452 ms QTC Calculation(Bazett): 473 ms P Homer: 40 degrees R Homer: 48 degrees T Homer: 65 degrees Normal sinus rhythm Normal ECG When compared with ECG of 30-OCT-2022 11:32, No significant change was found Confirmed by AMY PICHARDO MD ([id number]) on 10/30/2022 5:51:59 PM [place]: AMY PICHARDO MD * Event Display: ECG 12-Lead Authored Date: Please click on pdf link to open report * Event Display: ECG 12-Lead Authored Date: Ventricular Rate: 62 BPM Atrial Rate: 62 BPM P-R Interval: 180 ms QRS Duration: 90 ms Q-T Interval: 442 ms QTC Calculation(Bazett): 448 ms P Homer: 37 degrees R Homer: 26 degrees T Homer: 41 degrees Normal sinus rhythm Normal ECG When compared with ECG of 30-OCT-2022 11:32, No significant change was found Confirmed by CHRISTOPHER FRENCH MD ([id number]) on 10/30/2022 9:43:50 PM [place]: CHRISTOPHER FRENCH MD [facility] Progress note * Gay Arreola RN: PERFORM, SIGN, VERIFY Event Display: [facility] Authored Date: Patient: CHARLES GREENE Age: 67 years Sex: Male : 1955 Associated Diagnoses: None Author: Gay Arreola RN Findings pt awake and alert this am., denies pain or shortness of breath. no seizure activity noted. pupils equal and reactive to light. no weakness noted in extremities. ambulated to bathroom with assist, tolerated activity well. sat up in chair for 2 hours. medications given as ordered. seen by . eeg done. orders received for dc to home.pt requested his catering sous chef be called for ride. her name is eri almonte phone number [phone]. she was willing to be his hcp and pt was willing to have her be the hcp. the people listed on his contact sheet no longer want that responsibility. this waqs noted and given to OA. pt's iv removed intact. given klonopin per request. pt advised to quit both drinking and smoking. given dc instructions and dc to home with hcp. * Jennifer Rand RN: PERFORM, SIGN, VERIFY Event Display: Progress Note Hospital Authored Date: Patient: CHARLES GREENE Age: 67 years Sex: Male : 1955 Associated Diagnoses: None Author: Jennifer Rand RN Findings Problem Related to Alteration in Psychosocial : Alteration in Psychosocial Function/new 10/30/2022 22:00 EDT Alteration in Psychosocial Related to Acute Alcohol Withdrawal Goals & Outcomes, Psychosocial Psychosocial support will be provided to Pt/S.O. as needed, Pt will identify stressors leading up to event, Pt will state importance of adhering to medication regime, Pt/caregiver will be offered appropriate resources & support, Pt/caregiver will express feelings/needs/fears /concerns, Pt/caregiver will maintain/obtain psychological stability, Pt/caregiver will participate in coping skill counseling Interventions, Psychosocial Assess psychosocial needs, Assess readiness to learn needed lifestyle changes, Assess/monitor level of consciousness, Evaluate resources & support system available to pt, Offer support; discuss coping strategies, Provide a calm, supportive environment, Provide chances to express concerns/emotions/expectations, Provide info on community resources for education, support, Provide information about illness and recovery, Provide verbal limits if pt's behavior escalates BH Goals/Interventions, Psychosocial Yes Psychosocial, Problem Start 10/30/2022 22:19 Reviewed Plan with, Psychosocial Patient Patient Progression, Psychosocial Plan Initiation . Narrative/Incidental Alert and oriented. Sats on RA above 95%. CIWAs 5-10 and alcohol withdrawal protocol being maintained. Afebrile. bradycardic on the monitor, HAWK Nugent made aware. Plan to monitor overnight, no intervention at this time as pt is asymptomatic. Voided without issues. He is impulsive and unteady on his feet when trying to get oob to utilize urinal. he was assisted with needs. Call light in close reach and use explained. Bed locked in lowest position with tariq and bed alarms activated. Hourly rounding maintained. . * Erika Goel RN: PERFORM, SIGN, VERIFY Event Display: Progress Note Hospital Authored Date: [id number] Patient: CHARLES GREENE Age: 67 years Sex: Male : 1955 Associated Diagnoses: None Author: Amando RUIZ, Erika Findings Problem Related to Alteration in Neurological : Alteration in Neurological Function/new 10/30/2022 19:00 EDT Alteration in Neuro status Related to Seizure Goals & Outcomes, Neurological Pt is safe with transfers & activities, Pt will be Neurologically stable, Pt will remain free from injury, Pt will be free from complications r/t seizure activity, Pt will be seizure controlled, Pt will remain free from injury post seizure activity, Pt will return to baseline after post ictal phase Interventions, Neurological Assess & monitor for seizure activity, Assess for aspiration and status epileptics, Assess seizure Hx, frequency/type/presence of aura, Document length of postictal phase & postictal activity, Document length of seizure and activity during seizure, During seizureactivity maintain pt safety & privacy, Initiate & maintain Seizure Precautions, Minimize seizure triggering stimuli (i.e. light, noise, pain, Monitor for therapeutic levels of anti-seizure meds, Monitor oxygenation/ventilation during seizure activity, Monitor/maintain airway patency, Obtainpost seizure labs as ordered, Post seizure: assess pt for injury/vital signs/neuro's, Provide explanation of disorder, causes & treatment BH Goals/Interventions, Neurological Yes Neurological, Problem Start 10/30/2022 19:04 Reviewed plan with, Neurological Patient Patient Progression, Neurological Plan Initiation . Evaluation Pt admitted s/p witnessed seizure activity. Pt is alert and oriented x4, forgetful at times. Ambulates w/ the use of a cane and walker at baseline. Difficulty orienting the patient to the room and call light d/t intermittently dozzing off throughout the admission process. Call light within reach. Bed locked in the lowest position. TABS in place . Note * Gay Arreola RN: PERFORM Event Display: Discharge/Transfer Note Hospital Authored Date: [id number] Nursing Discharge Note Entered On: 10/31/2022 16:42 EDT Performed On: 10/31/2022 16:41 EDT by Gay Arreola RN Nursing Discharge Note 2 Discharge Time : 10/31/2022 16:15 EDT Discharge Level of Care at Discharge : Home/Custodial/Foster Care Patient Left Unit Via : Wheelchair Patient Accompanied Off Unit with : Responsible adult DC Instructions Provided & Signed by Pt : Yes Patient Understands D/C Instructions : Yes Patient Instructions Discharge Signed : Yes Did Pt have Specialty Bed or Wound Vac : No Gay Arreola RN - 10/31/2022 16:41 EDT * Loreto Bolaños MD: PERFORM Event Display: Discharge/Transfer Note Hospital Authored Date: [id number] Patient: ??CHARLES GREENE ? Age:??67 Years?Sex:??Male?:??1955?? Patient Information Discharge Location: Med Surg Primary Care Physician: Kirk Bahena MD Admit Date/Time: 10/30/22 10:58 Discharge Disposition Discharge Disposition: Home: No Services Discharge Diagnosis Alcohol abuse (F10.10) Depression (F32.A) HTN (hypertension) (I10) Opiate dependence (F11.20) Tonic-clonic seizures (G40.409) Nicotine use ?? _ Discharge Medications Albuterol (Albuterol (Eqv-ProAir HFA) 90 mcg/inh inhalation aerosol)?2?puff(s)?Inhalation?Every 6 hours Amlodipine (amLODIPine 5 mg oral tablet)?5?Milligram?1?tablet?By Mouth?Daily Aripiprazole (ARIPiprazole 2 mg oral tablet)?2?Milligram?1?tablet?By Mouth?Daily Buprenorphine-Naloxone (Suboxone 8 mg-2 mg sublingual film)?1?Film?Sublingual?3 times aday?dissolve under the tongue Clonazepam (clonazePAM 1 mg oral tablet)?1?tab(s)?1?Milligram?By Mouth?3 times a day?as needed?Anxiety?for 7?Days Doxazosin?8?Milligram?By Mouth?2 times a day Duloxetine (Cymbalta 20 mg oral enteric coated capsule)?60?Milligram?By Mouth?Daily at bedtime Folic Acid (folic acid 1 mg oral tablet)?1?Milligram?By Mouth?Daily Furosemide (Lasix 40 mg oral tablet)?40?Milligram?1?tablet?By Mouth?Daily Isosorbide Mononitrate (Imdur 60 mg oral tablet, extended release)?60?Milligram?1?tablet?By Mouth?Daily in AM Nicotine (nicotine 14 mg/24 hr transdermal film, extended release)?1?patch(es)?Topically?Daily?for 30?Days Propranolol (propranolol 60 mg oral capsule, extended release)?60?Milligram?1?capsule?By Mouth?Daily Pyridoxine (pyridoxine 50 mg oral tablet)?50?Milligram?By Mouth?Daily Tamsulosin (Flomax 0.4 mg oral capsule)?0.4?Milligram?1?capsule?By Mouth?Daily?for 14?Days Thiamine (thiamine 100 mg oral tablet)?100?Milligram?By Mouth?2 times a day Trazodone (traZODone 50 mg oral tablet)?25?Milligram?By Mouth?Daily at bedtime?as needed?Insomnia Valsartan (valsartan 40 mg oral tablet)?40?Milligram?1?tablet?By Mouth?Daily ? Quality Measures Tobacco Use Treatment:?Cessation Medication Prescribed on Discharge:??Tobacco Cessation Medication Prescribed ? Medications Started Albuterol inhaler, pyridoxine,??folic acid, thiamine Medications Discontinued none Doses Changed none Allergies Allergies ?(Active and Proposed Allergies Only) NKA? (Severity: Unknown severity, Onset: Unknown) ? PCP Follow-Up/Heads-Up EEg results Hospital Course Seizure Alcohol use disorder Chronically on benzodiazepines ??? 67-year-old male with a past medical history of prior seizure, alcohol use presented to the hospital after a witnessed seizure. Patient had a tonic-clonic seizure lasting about 2 minutes after which he was postictal for about 10 minutes. Lab work overall is insignificant, CT scan of head/neck did not show any acute abnormality. Neurology was consulted from the emergency department recommendedfor EEG and to be started on Keppra. Per patient he ran out of his Klonopin that he chronically takes approximately 3 days ago. Patient underwent EEG, report is currently pending however patient wanted to leave. I discussed the case briefly with neurology given that he has been off of his Klonopin for 3 days we can presume that this is benzo withdrawal seizure. We will keep the patient off Kepprafor now, if the EEG is abnormal he can be started on Keppra and to be seen by epilepsy clinic. I will have the patient's primary care follow-up with the EEG results.??If the EEG results are abnormal??the patient will need to be started on??Keppra??and a referral need to be done for??epilepsy clinic. ?? Alcohol abuse ??? Drinks approximately 6 beers a day. Was on CIWA did not score much. Continue with folic acid, pyridoxine, thiamine ?? Wheezing Nicotine use ??? Mild expiratory wheezing,??no formal diagnosis of COPD.??Oxygen saturation??good on room air.??Will prescribe albuterol as needed.??Counseled the patient against??nicotine use for 4 minutes.??Nicotine patch ordered. ?? Depression ???Continue Abilify, duloxetine, trazodone and as needed Klonopin ?? HTN ??? Initially blood pressure was slightly soft after receiving Ativan. Home blood pressure medications were held. Patient has been restarted on valsartan ?? Objective Assessment and Plan Assessment:??See hospital course Vital Signs?? Temperature: 98.2 DegF (10/31/22 13:00:00) Temperature Route: Oral (10/31/22 13:00:00) Pulse Rate:??52 bpm??Low (10/31/22 06:00:00) Heart Rate Monitored:??52 bpm??Low (10/31/22 10:00:00) Respiratory Rate:??11 br/min??Low (10/31/22 13:00:00) Systolic Blood Pressure:??161 mm Hg??High (10/31/22 13:45:00) Systolic Blood Pressure:??161 mm Hg??High (10/31/22 13:45:00) Diastolic Blood Pressure: 80 mm Hg (10/31/22 13:45:00) Diastolic Blood Pressure: 80 mm Hg (10/31/22 13:45:00) Blood pressure sites: Arm, left (10/31/22 13:00:00) Mean Arterial Pressure: 85 mm Hg (10/30/22 16:48:00) Pulse Pressure: 85 mm Hg (10/31/22 12:00:00) Oxygen Saturation: 96 % (10/31/22 13:00:00) Liters per Minute: 2 L/min (10/30/22 14:17:00) Mode of Delivery (Oxygen): Room air (10/31/22 13:00:00) Early Warning Score: 0 (10/31/22 13:46:49) ? . Physical Exam Constitutional: Alert, in no distress. Oriented??x3 Respiratory: Mild expiratory wheezing Cardiovascular: S1 S2 regular. No murmurs,??no pitting edema Gastrointestinal: Abdomen soft, no abdominal tenderness, non-distended. Normal bowel sounds. Neurologic: Moving all extremities Psychiatric: Normal mood and affect Consultants Dr. Ceballos (Neurology) Pending Results Add On Lab Order ordered on 10/30/2022 Follow-Up Appointments Added Follow Up ?Time Frame ?Comments Kirk Bahena MD Patient Instructions You were admitted to the hospital due to??having a seizure, we did imaging studies which does not show anything. ??You underwent a test called EEG, the report of that is pending. ??I discussed the case with neurology??and we believe that it could be in setting of missing doses of Klonopin.?? I willrefill, but prescription for 7 days.?? You will need to reach out to your PCP regarding this. ?? New medication: ?Albuterol inhaler every 6 hours as needed for shortness of breath and wheezing ?Thiamine 100 mg once daily ??? Folic acid 1 mg once daily ?Pyridoxine 50 mg once daily ?Nicotine patch once daily ?? Continue??taking all of your other home medications as previously prescribed ?? Please follow-up with your primary care physician,??they will let you know about??the results of EEG. Post Discharge Care Condition: fair Prognosis: Fair Discharge ?10/31/22 13:56:00 EDT Discharge Prescriptions ?ePrescribed, ??10/31/22 13:56:00 EDT Home Health Face to Face ^HomeHealthFTF Results Discharge Labs BLOOD COUNT & DIFF WBC 7.3 k/mm3 ()?? 10/31/2022 05:24 RBC 4.09 m/mm3 (Low)?? 10/31/2022 05:24 Hgb 12.4 Gm/dL (Low)?? 10/31/2022 05:24 Hct 38.1 % (Low)?? 10/31/2022 05:24 MCV 93.2 femtoliters ()?? 10/31/2022 05:24 MCH 30.3 pg ()?? 10/31/2022 05:24 MCHC 32.5 g/dL (Low)?? 10/31/2022 05:24 Platelet Count 210 k/mm3 ()?? 10/31/2022 05:24 RDW-SD 46.4 femtoliters ()?? 10/31/2022 05:24 MPV 11.1 femtoliters ()?? 10/31/2022 05:24 Nucleated RBC (Automated) 0.0 #/100 WBC'S ()?? 10/31/2022 05:24 Abs. NRBC 0.0 k/mm3 ()?? 10/31/2022 05:24 Abs. Neut 6.4 k/mm3 ()?? 10/30/2022 11:30 Abs. Lymph 1.1 k/mm3 ()?? 10/30/2022 11:30 Abs. Lamoure 0.7 k/mm3 ()?? 10/30/2022 11:30 Abs. Eo 0.2 k/mm3 ()?? 10/30/2022 11:30 Abs. Baso 0.1 k/mm3 ()?? 10/30/2022 11:30 Neut % 75.2 % ()?? 10/30/2022 11:30 Lymph % 13.2 % (Low)?? 10/30/2022 11:30 Lamoure % 8.3 % ()?? 10/30/2022 11:30 Eos % 2.1 % ()?? 10/30/2022 11:30 Baso % 0.7 % ()?? 10/30/2022 11:30 Imm Gran 0.5 % ()?? 10/30/2022 11:30 Abs. Imm Gran 0.0 k/mm3 ()?? 10/30/2022 11:30 ?? CHEM GENERAL Sodium 136 mmol/L ()?? 10/31/2022 05:24 Potassium 3.8 mmol/L ()?? 10/31/2022 05:24 Chloride 104 mmol/L ()?? 10/31/2022 05:24 Bicarbonate Level 23 mmol/L ()?? 10/31/2022 05:24 Anion Gap 9 ()?? 10/31/2022 05:24 Glucose Level 96 mg/dL ()?? 10/31/2022 05:24 Glucose, POC 111 mg/dL (High)?? 10/30/2022 13:58 BUN 13 mg/dL ()?? 10/31/2022 05:24 Creatinine-Blood 0.9 mg/dL ()?? 10/31/2022 05:24 Estimated GFR Creatinine 92 ML/MIN/1.73 M2 ()?? 10/31/2022 05:24 Calcium 8.5 mg/dL (Low)?? 10/30/2022 11:30 Phosphorus 3.0 mg/dL ()?? 10/31/2022 05:24 Magnesium 2.1 mg/dL ()?? 10/31/2022 05:24 AST (SGOT) 9 units/L ()?? 10/31/2022 05:24 ALT (SGPT) <5 units/L ()?? 10/31/2022 05:24 Bilirubin, Total 0.6 mg/dL ()?? 10/31/2022 05:24 Bilirubin, Direct 0.2 mg/dL ()?? 10/31/2022 05:24 Bilirubin, Indirect 0.4 mg/dL ()?? 10/31/2022 05:24 ?? MISC. CHEMISTRY Hold Gel Top SPECIMEN DISCARDED AFTER 1 WEEK ()?? 10/30/2022 11:30 ? TOXICOLOGY/TDM Ethanol, Serum or Plasma NONE DETECTED mg/dL ()?? 10/30/2022 11:30 Barbiturate Screen, Urine NONE DETECTED ()?? 10/31/2022 00:18 Cannabinoid Screen, Urine POSITIVE (Abnormal)?? 10/31/2022 00:18 Cocaine Metabolite Screen, Urine NONE DETECTED ()?? 10/31/2022 00:18 Benzodiazepine Screen, Urine NONE DETECTED ()?? 10/31/2022 00:18 Amphetamine Screen, Urine NONE DETECTED ()?? 10/31/2022 00:18 Opiate Screen, Urine NONE DETECTED ()?? 10/31/2022 00:18 ? UA/URINALYSIS Appear/Color, Urine YELLOW ()?? 10/31/2022 00:18 Clarity CLEAR ()?? 10/31/2022 00:18 Specific [place], Urine 1.010 ()?? 10/31/2022 00:18 pH, Urine 6.5 ()?? 10/31/2022 00:18 Albumin, Urine NEGATIVE ()?? 10/31/2022 00:18 Glucose, Urine NEGATIVE ()?? 10/31/2022 00:18 Ketones, Urine NEGATIVE ()?? 10/31/2022 00:18 Bilirubin, Urine NEGATIVE ()?? 10/31/2022 00:18 Hemoglobin, Urine NEGATIVE ()?? 10/31/2022 00:18 Nitrite, Urine NEGATIVE ()?? 10/31/2022 00:18 Leukocyte, Urine NEGATIVE ()?? 10/31/2022 00:18 Urobilinogen NORMAL mg/dL ()?? 10/31/2022 00:18 Hold Urine Culture Testing available 48 hours from time of collection. ()?? 10/31/2022 00:18 ? URINE OTHER Est Creatinine Clearance 70.26 mL/min ()?? 10/31/2022 06:49 ? VIROLOGY COVID-19 PCR Specimen Source NASAL ()?? 10/30/2022 14:35 COVID-19 PCR Result NEGATIVE ()?? 10/30/2022 14:35 ? Imaging(s) ?CT Head/Brain W/O Contrast ?? 10/30/2022 12:55??by Maryjo Iverson MD ?IMPRESSION: ?? No acute abnormality of the head or cervical spine. ?CT Cervical Spine W/O Contrast ?? 10/30/2022 12:55??by Maryjo Iverson MD ?IMPRESSION: ?? No acute abnormality of the head or cervical spine. ? 37??minutes spent on discharge * Maxwell RUIZ, Gay D: PERFORM Event Display: Patient Education/Instruction Authored Date: [id number] Inpatient Adult Discharge Instructions [place] [id number] Name: CHARLES GREENE : 1955 Visit: 10/30/2022 10:58:00 Current Date: 10/31/2022 14:23 Account: [id number] Inpatient Adult Discharge Instructions We would like to thank you for allowing us to assist you with your healthcare needs. The following includes patient education materials and information regarding your injury/illness. Our entire staffstrives to provide an excellent experience for our patients and their families. PLEASE ENSURE YOU FOLLOW-UP PER THE INSTRUCTIONS BELOW! ?? YOUR OPINION IS IMPORTANT TO US! Please complete the survey you may receive by mail or email. Your feedback will be used to make improvements to the healthcare experiences of our patients and their families. Surveys are administered by [employer] ?? If further treatment with your primary care physician or another doctor is recommended, it is important for you to keep the appointment. Call your primary care physician or return to the Emergency Department immediately if your condition worsens, fails to improve, or new symptoms develop. If you need to find a doctor, you can call [facility] for a referral at [phone] or toll free at [phone] or log in to [email or web address] ?? You can view and manage your care through the patient portal or by using a health care karin of your choosing. [employer] is a website that allows you to securely view your medical information including your hospital discharge summary, office visit summaries, medications and follow-up visits. You can also request appointments, renew medications, and request access to your medical information using a health care karin of your choosing, or just ask a question. You can enroll at [email or web address] or register during your next office visit. You have been discharged from [facility], Patient Care Unit: Med Surg. If you have any questions regarding these instructions after you leave, please call us and we will be happy to assist you. [facility] Your Care Team Attending Physician Loreto Bolaños MD Discharging Providers Loreto Bolaños MD Reason for Admission Seizure Your Diagnosis HTN (hypertension) Alcohol abuse Tonic-clonic seizures Opiate dependence Depression Tests Performed Below is a partial list of the tests performed during your hospitalization. You may have had other tests and procedures not included in this list. Please discuss all test results with your provider. ALT Amphetamine Urine Screen AST Barbiturate Urine Screen Basic Metabolic Panel Benzodiazepine Urine Screen Bilirubin Total + Direct BUN Cannabinoid Urine Screen CBC CBC w/ Differential Cocaine Urine Screen COVID-19 (2019 Novel Coronavirus) PCR Creatinine Electrolytes ETHANOL Glucose Level GLUCOSE POC HOLD GEL TUBE Magnesium Level Opiate Screen Urine Phosphorus Level Urinalysis w/hold for Urine Culture CT Cervical Spine W/O Contrast CT Head/Brain W/O Contrast XR Chest Portable Primary Care Provider Kirk Bahena MD Advance Directive Health Care Proxy on File Yes - Health Care Proxy Discharge Vitals Temperature: 98.2 DegF Height: 168 cm Pulse Rate:??52 bpm??Low Weight: 70.6 kg Respiratory Rate:??11 br/min??Low Body Mass Index:??25.01 kg/m2??High Systolic Blood Pressure:??161 mm Hg??High Body surface area: 1.82 Systolic Blood Pressure:??161 mm Hg??High ?? Diastolic Blood Pressure: 80 mm Hg ?? Diastolic Blood Pressure: 80 mm Hg ?? Oxygen Saturation: 96 % ?? Studies Pending All tests and labs ordered during this hospital stay have been completed unless listed below. Please discuss all pending results with your provider listed above in these instructions. ?? Add On Lab Order (Lab Add On Order) What to do next Instructions From Your Doctor You were admitted to the hospital due to??having a seizure, we did imaging studies which does not show anything. ??You underwent a test called EEG, the report of that is pending. ??I discussed the case with neurology??and we believe that it could be in setting of missing doses of Klonopin.?? I willrefill, but prescription for 7 days.?? You will need to reach out to your PCP regarding this. ?? New medication: ?Albuterol inhaler every 6 hours as needed for shortness of breath and wheezing ?Thiamine 100 mg once daily ??? Folic acid 1 mg once daily ?Pyridoxine 50 mg once daily ?Nicotine patch once daily ?? Continue??taking all of your other home medications as previously prescribed ?? Please follow-up with your primary care physician,??they will let you know about??the results of EEG. Discharge Orders Condition:??fair Prognosis:??Fair You Need to Schedule the Following Appointments Follow Up with??Kirk Bahena MD Where: [address] [place] [address]- Discharge Medications CHARLES GREENE :1955 Visit Date:10/30/2022 Medications: Please continue your medications until treatment is completed or stopped by your provider. Medications not listed below should be discontinued. Discuss any questions related to medications with your provider. What How Much When Instructions Next Dose New Albuterol (Albuterol (Eqv-ProAir HFA) 90 mcg/ inh inhalation aerosol) 2 puff(s) Inhalation Every 6 hours Pickup at [facility] as directed New Folic Acid (folic acid 1 mg oral tablet) 1 Milligram Oral Daily Pickup at [facility] 11/01 am New Nicotine (nicotine 14 mg/ 24 hr transdermal film, extended release) 1 patch(es) Topically Daily Duration: 30 Days Pickup at [facility] 11/01 am New Pyridoxine (pyridoxine 50 mg oral tablet) 50 Milligram Oral Daily Pickup at [facility] 11/01 am New Thiamine (thiamine 100 mg oral tablet) 100 Milligram Oral Twice a day Pickup at [facility] 11/01 am Changed Clonazepam (clonazePAM 1 mg oral tablet) 1 tab(s) Oral 3 times a day as needed for Anxiety Duration: 7 Days Pickup at [facility] as directed Unchanged Amlodipine (amLODIPine 5 mg oral tablet) 1 tab(s) Oral Daily 11/01 am Unchanged Aripiprazole (ARIPiprazole 2 mg oral tablet) 1 tab(s) Oral Daily 11/01 am Unchanged Buprenorphine-Naloxone (Suboxone 8 mg-2 mg sublingual film) 1 Film Sublingual 3 times a day dissolve under the tongue ?? as directed Unchanged Doxazosin 8 Milligram Oral Twice a day 10/31 pm Unchanged Duloxetine (Cymbalta 20 mg oral enteric coated capsule) 60 Milligram Oral Daily at Bedtime 10/31 pm Unchanged Furosemide (Lasix 40 mg oral tablet) 1 tab(s) Oral Daily 11/01 am Unchanged Isosorbide Mononitrate (Imdur 60 mg oral tablet, extended release) 60 Milligram Oral Daily in the morning 11/01 am Unchanged Propranolol (propranolol 60 mg oral capsule, extended release) 1 capsule Oral Daily 11/01 am Unchanged Tamsulosin (Flomax 0.4 mg oral capsule) 1 capsule Oral Daily Duration: 14 Days 11/01 am Unchanged Trazodone (traZODone 50 mg oral tablet) 25 Milligram Oral Daily at Bedtime as needed for Insomnia as directed Unchanged Valsartan (valsartan 40 mg oral tablet) 1 tab(s) Oral Daily 11/01 am Pharmacy Information [id number]: [address], [place] [id number] [phone] ?? What How Much When Comments Stop Taking Bismuth Subsalicylate (Pepto Bismol Maximum Strength 525mg/ 15 ml oral suspension) 15 Milliliter Oral 4 times a day Stop Taking Labetalol 100 Milligram Oral Twice a day Stop Taking levETIRAcetam (Keppra 500 mg oral tablet) 500 Milligram Oral Twice a day Stop Taking Methadone (methadone 10 mg oral tablet) 1 tab(s) Oral Every 6 hours Stop Taking Oxycodone (oxyCODONE 30 mg oral tablet) 1 tab(s) Oral Every 6 hours as needed for for pain Test Results Below is a partial list of the most recent Laboratory test results done prior to this discharge. You may have had other tests and procedures not included in this list. Please discuss all test resultswith your provider. Est Creatinine Clearance - 70.26 mL/min (10/31/2022) ALT (10/31/2022) ? ?ALT (SGPT) - <5 units/L Amphetamine Urine Screen (10/31/2022) ???Amphetamine Screen, Urine - NONE DETECTED AST (10/31/2022) ???AST (SGOT) - 9 units/L Barbiturate Urine Screen (10/31/2022) ???Barbiturate Screen, Urine - NONE DETECTED Basic Metabolic Panel (10/30/2022) ???Sodium - 134 mmol/L???Potassium - 4.1 mmol/L???Chloride - 102 mmol/L???Bicarbonate Level - 24 mmol/L???Anion Gap - 8???Glucose Level - 110 mg/dL???BUN - 21 mg/dL???Creatinine-Blood - 1.1 mg/dL???Estimated GFR Creatinine - 73 ML/MIN/1.73 M2???Calcium - 8.5 mg/dL Benzodiazepine Urine Screen (10/31/2022) ???Benzodiazepine Screen, Urine - NONE DETECTED Bilirubin Total + Direct (10/31/2022) ???Bilirubin, Total - 0.6 mg/dL???Bilirubin, Direct - 0.2 mg/dL???Bilirubin, Indirect - 0.4 mg/dL BUN (10/31/2022) ???BUN - 13 mg/dL Cannabinoid Urine Screen (10/31/2022) ???Cannabinoid Screen, Urine - POSITIVE CBC (10/31/2022) ???WBC - 7.3 k/mm3???RBC - 4.09 m/mm3???Hgb - 12.4 Gm/dL???Hct - 38.1 %???MCV - 93.2 femtoliters???MCH - 30.3 pg???MCHC - 32.5 g/dL???Platelet Count - 210 k/mm3???RDW-SD - 46.4 femtoliters???MPV - 11.1 femtoliters???Nucleated RBC (Automated) - 0.0 #/100 WBC'S???Abs. NRBC - 0.0 k/mm3 CBC w/ Differential (10/30/2022) ???WBC - 8.5 k/mm3???RBC - 3.87 m/mm3???Hgb - 12.1 Gm/dL???Hct - 35.2 %???MCV - 91.0 femtoliters???MCH - 31.3 pg???MCHC - 34.4 g/dL???Platelet Count - 239 k/mm3???RDW-SD - 46.2 femtoliters???MPV - 11.4 femtoliters???Nucleated RBC (Automated) - 0.0 #/100 WBC'S???Abs. NRBC - 0.0 k/mm3???Abs. Neut - 6.4 k/mm3???Abs. Lymph - 1.1 k/mm3???Abs. Lamoure - 0.7 k/mm3???Abs. Eo - 0.2 k/mm3???Abs. Baso - 0.1 k/mm3???Neut % - 75.2 %???Lymph % - 13.2 %???Lamoure % - 8.3 %???Eos % - 2.1 %???Baso % - 0.7 %???Imm Gran - 0.5 %???Abs. Imm Gran - 0.0 k/mm3 Cocaine Urine Screen (10/31/2022) ???Cocaine Metabolite Screen, Urine - NONE DETECTED COVID-19 (2019 Novel Coronavirus) PCR (10/30/2022) ???COVID-19 PCR Specimen Source - NASAL???COVID-19 PCR Result - NEGATIVE Creatinine (10/31/2022) ???Creatinine-Blood - 0.9 mg/dL???Estimated GFR Creatinine - 92 ML/MIN/1.73 M2 Electrolytes (10/31/2022) ???Sodium - 136 mmol/L???Potassium - 3.8 mmol/L???Chloride - 104 mmol/L???Bicarbonate Level - 23 mmol/L???Anion Gap - 9 ETHANOL (10/30/2022) ???Ethanol, Serum or Plasma - NONE DETECTED Glucose Level (10/31/2022) ???Glucose Level - 96 mg/dL GLUCOSE POC (10/30/2022) ???Glucose, POC - 111 mg/dL HOLD GEL TUBE (10/30/2022) ???Hold Gel Top - SPECIMEN DISCARDED AFTER 1 WEEK Magnesium Level (10/31/2022) ???Magnesium - 2.1 mg/dL Opiate Screen Urine (10/31/2022) ???Opiate Screen, Urine - NONE DETECTED Phosphorus Level (10/31/2022) ???Phosphorus - 3.0 mg/dL Urinalysis w/hold for Urine Culture (10/31/2022) ???Appear/Color, Urine - YELLOW???Clarity - CLEAR???Specific [place], Urine - 1.010???pH, Urine - 6.5???Albumin, Urine - NEGATIVE???Glucose, Urine - NEGATIVE???Ketones, Urine - NEGATIVE???Bilirubin, Urine - NEGATIVE???Hemoglobin, Urine - NEGATIVE???Nitrite, Urine - NEGATIVE???Leukocyte, Urine - NEGA TIVE???Urobilinogen - NORMAL???Hold Urine Culture - Testing available 48 hours from time of collection. Allergies (NKA means No Known Allergies) NKA Problems Active Problems??(19) Abdominal pain?? Bony pelvic pain?? C2 cervical fracture?? Chronic hepatitis C?? Degeneration of lumbar intervertebral disc?? Fecal urgency?? Follow-up exam?? H/O IVDA?? Hand injury RT?? Hand swelling?? Hip pain, left?? Knee pain, left?? Low back pain?? Lumbar microdiscectomy?? Passage of loose stools?? Prolapsed lumbar intervertebral disc?? Radicular syndrome of lower limbs?? Thumb injury?? Urinary hesitancy?? Education Materials Below is the list of Educational Leaflet Providered with your Discharge Instructions. Valuables and Belongings I fully understand and agree that [facility] accepts no responsibility for all my personal property including clothing, toilet articles, radios, jewelry, dentures, hearing aids, rings, money, or any other property that is in my possession or is brought to me after admission. I understand certain valuables may be placed in a hospital safe for a short period of time. I understand that the hospital is not liable for loss or damage due to accident, fire, or other natural occurrence while said property is in the safe. I accept full responsibility for any personal property that I keep with me, and will not hold the hospital responsible in case of loss or disappearance. I acknowledge that i have been encouraged to send valuables and belongings home. ?? Review of Valuable and Belonging List: With patient Date for Pt to Sign Valuables/Belongings: 10/31/22 14:21:00 ?? Other Discharge Information ? Pulmonary Rehab Status?? Pulmonary Rehab Discharge Status?? Respiratory Rate:??11 br/min??Low ? Common Emergency Awareness Tips IS IT A STROKE? Act FAST and Check for these signs: FACE Does the face look uneven? ARM Does one arm drift down? SPEECH Does their speech sound strange? TIME Call at any sign of stroke ?? Heart Attack Signs Chest discomfort: Most heart attacks involve discomfort in the center of the chest and lasts more than a few minutes, or goes away and comes back. It can feel like uncomfortable pressure, squeezing, fullness or pain. Discomfort in upper body: Symptoms can include pain or discomfort in one or both arms, back, neck, jaw or stomach. Shortness of breath: With or without discomfort. Other signs: Breaking out in a cold sweat, nausea, or lightheaded. Remember, MINUTES DO MATTER. If you experience any of these heart attack warning signs, call to get immediate medical attention! ?? Smoking can increase your chances of developing chronic health problems and can cause harmful effects to other family members in your house. If you smoke, you are strongly encouraged to quit. Please call [facility] Link at [phone] or [phone] ([phone]) or log in to [email or web address] for referrals to smoking cessation programs. ?? 072 Suicide & Crisis Lifeline is available 04/12 if you or someone you know needs to find a reason to keep living. By calling 656 you'll be connected to a skilled, trained counselor at a crisis center in your area. INPATIENT DISCHARGE INSTRUCTIONS SIGNATURE PAGE CHARLES GREENE Location:[facility] Registration Date and Time:10/30/2022 10:58 EDT Primary Care Physician: Kirk Bahena MD, Attending Physician: Mami AMARO, [place], I CHARLES GREENE, have received the above patient education materials/instructions and have verbalized understanding. If ambulance or transport services are being used I further acknowledge being given a choice of service. ?? If you need to contact me, please call me at this number: . Patient/Special Diet Cook Name: Patient/Special Diet Cook Signature: Relationship to Patient: Witness Name/Signature: Date: Patient Care team information Care Team Personnel Name: Alisa Hatfield NP Position: [facility] Associate Professional Member Role: Primary Care Nurse Address: Address: [address] [place] [address]- [place] Name: Kirk Bahena MD Position: [facility] Outreach Member Role: PCP Address: Address: [address] [place] [address]- [place] Name: Haritha Penaloza RN Position: [facility] SN Acid Correction Hand Member Role: Primary Care Nurse Name: Yakelin Tucker RN Position: [facility] RN Member Role: Primary Care Nurse Name: Brittany Parnell RN Position: [facility] RN Member Role: Primary Care Nurse Name: Arpit Wilson Position: [facility] ED TA [facility] Member Role: Patient Care Provider Name: Vickie Ya RN Position: [facility] ED RN W/OE and Tasks Member Role: Patient Care Provider Name: Haritha Pablo DO Position: [facility] ED Medicine MD Member Role: ED Attending Physician Address: Address: [address] [place] [address] [place] [address]- Care Team Related Persons Name: DERIC WHITNEY Address: [place] [address] Name: JENNIFER GREY Address: home [address] [place] [id number] Name: DION GREY Address: home [address] [place] [address] Name: ADRIENNE ROSENBAUM Address: home [address] [place] [address] Name: YENNIFER GREENE Address: [place] [address]
--- OUTSIDE RECORDS SUMMARY | 2023-12-01 21:44 | XMS_ITS | Continuity of Care Document ---
Author Organization [facility] Address [address] [place] [address]- Care Team Providers Care Director Of Physical Therapy Name Role Phone Kirk Bahena MD Primary Care Physician Encounter [facility] Date(s): 07/18/21 - 08/17/21 [facility] [address] [place] [address]- Allergies, Adverse Reactions, Alerts No Known Allergies [...] than left by Yuliya Pena MD. at [facility]. Social History Social History Type Response Tobacco Use: 4 or less cigar ettes(less than 1/4 pack)/day in last 30 days. Sex
--- OUTSIDE RECORDS SUMMARY | 2023-12-01 21:44 | XMS_ITS | Continuity of Care Document ---
Author Organization [facility] [place] Address [address] [place] [address]- Care Team Providers Care Television Production Technician Name Role Phone Josef AMARO, Kirk Primary Care Physician [phone] Encounter [facility] Date(s): 09/05/21 - 10/19/21 [facility] [address] [place] [address]- Attending Physician: Idalmis AMARO, Vidal Fuentes Referring Physician: Kirk Bahena MD Allergies, Adverse Reactions, Alerts No Known [...] Print Requisition Start Date: 01/29/20 Stop Date: 10/1/20 Status: Ordered Imdur 60 mg oral tablet, [...] than left by Yuliya Pena MD. at [facility]. Social History Social History Type Response Tobacco Use: 4 or less cigar ettes(less than 1/4 pack)/day in last 30 days. Sex
--- OUTSIDE RECORDS SUMMARY | 2023-12-01 21:44 | XMS_ITS | Continuity of Care Document ---
Author Organization [facility] ter Address [address] [place] [address]- Care Team Providers Care Truck Body Builder Apprentice Name Role Phone Kirk Bahena MD Primary Care Physician Encounter [facility] Date(s): 05/26/19 - 06/02/[address] [address]- [facility] Attending Physician: Kirk Bahena MD Allergies, Adverse Reactions, Alerts Substance Reaction [...] than left by Yuliya Pena MD. at [facility]. Social History Social History Type Response Tobacco Use: 4 or less cigar ettes(less than 1/4 pack)/day in last 30 days. Sex
--- OUTSIDE RECORDS SUMMARY | 2023-12-01 21:45 | XMS_ITS | Continuity of Care Document ---
Author Organization [facility] [place] Address [address] [place] [address]- Care Team Providers Care Product Development Engineer Name Role Phone Josef AMARO, Kirk Primary Care Physician Encounter [facility] Date(s): 08/02/21 - 10/02/21 [facility] [address] [place] [address]- Attending Physician: Idalmis AMARO, Vidal Fuentes Referring [...] than left by Yuliya Pena MD. at [facility]. Social History Social History Type Response Tobacco Use: 4 or less cigar ettes(less than 1/4 pack)/day in last 30 days. Sex
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
--- OUTSIDE RECORDS SUMMARY | 2023-12-01 21:45 | XMS_ITS | Continuity of Care Document ---
Author Organization [facility] Address [address] [place] [address]- Care Team Providers Care Navy Diver Name Role Phone Kirk Bahena MD Primary Care Physician [phone] Encounter [facility] Date(s): 07/03/23 - 07/05/[address] [address]- Discharge Disposition: Transfer to [facility] Attending Physician: Ana Gibson MD Admitting Physician: Ana Gibson MD Referring Physician: Not on Staff, Referring [...] oral tablet 5 mg, Tablet, By Mouth, 07/05/23 9:00:00 EST Start Date: 07/05/23 Stop Date: 07/05/23 Status: Completed amLODIPine 5 mg oral tablet [...] a schedule II opioid drug., 168, cm, 06/... Start Date: 10/31/22 Stop Date: 11/07/22 Status: [...] 13:49:00 EDT,Route to Pharmacy Electronically, [id number], Partial fill upon patient request [...] oral tablet 40 mg, Tablet, By Mouth, 07/05/23 9:00:00 EST Start Date: 07/05/23 Stop Date: 07/05/23 Status: Completed valsartan 40 mg oral tablet [...] than left by Yuliya Pena MD. at [facility]. Results Radiology Reports * Exam Date Time Procedure Performing Provider Status 07/03/23 6:[address] Head/Brain W/O Contrast Nasra Dobbins; Auth (Verified) Notes: (CT Head/Brain W/O Contrast) Reason For Exam: Seizure Disorder RESULT: CT Head/Brain W/O Contrast CT Head/Brain W/O Contrast INDICATION: Hx of Present Illness: pt went to neighbors house tore flag down. Threatened to kill self neighbors, ems, pd, pt sts wants to vote 1 mre time before he kills self. pt arrived agitated, toroom 10, skin tear left fa, repeating vulgarity toward staff. ? etoh substance abuts; Reason: Seizure Disorder; Clinical Question(s): Other:; Order Comment: NOT READY -NEAL 07 03 2023 16:55:47 EST TECHNIQUE: Noncontrast head CT using axial technique and reconstructed in axial and coronal planes.Iterative reconstruction techniques are used to optimize dose and image quality. CTDIvol Head: 46.55 mGy, DLP Head: 793 mGy*cm. COMPARISON: None. FINDINGS: Offset Printing Pressmen view findings, lines and tubes: None. BRAIN AND EXTRA-AXIAL SPACES: Image quality degraded by patient motion. No parenchymal hemorrhage, midline shift, or mass effect. De Dios-white matter differentiation is wellpreserved. No acute infarct. Negative insular ribbon sign. Atherosclerotic vascular calcification of the carotid arteries but negative hyperdense vessel sign. Mild prominence of the ventricles and sulci consistent with parenchymal volume loss. Mild low-density white matter changes. No subarachnoid hemorrhage. No subdural or epidural collection. CALVARIUM, SKULL BASE, AND SOFT TISSUES: No fractures or suspicious bony lesions. The paranasal sinuses and mastoid air cells are clear. Visualized orbits and globes are intact. The extracranial soft tissues are unremarkable. IMPRESSION: No acute intracranial pathology. WSN: [id number] Ordering Physician: Facundo Philippe Dictated By: Yayo Virgen MD Dictated Date/Time: 07/03/23 6:45 pm Reviewed By: Yayo Virgen MD Signed By: Yayo Virgen MD Signed Date/Time: 07/03/23 6:45 pm Transcribed By: CANDACE Transcribed Date/Time: 07/03/23 6:40 pm * Exam Date Time Procedure Performing Provider Status 07/03/23 6:33 PM Chest 2 Views Frontal and Lat Nasra Dobbins; Auth (Verified) Notes: (Chest 2 Views Frontal and Lat) Reason For Exam: Shortness of Breath RESULT: Chest 2 Views Frontal and Lat Chest 2 Views Frontal and Lat Hx of Present Illness: pt went to [facility] tore flag down. Threatened to kill self neighbors, ems, pd, pt sts wants to vote 1 more time before he kills self. pt arrived agitated, to room 10, skin tear left fa, repeating vulgarity toward staff. ? etoh substance abuts; Reason: Shortness of Breath; Clinical Question(s): CHF COMPARISON: Multiple prior chest x-rays, the most recent of which is dated 10/30/2022. FINDINGS: LINES AND TUBES: None. LUNGS AND PLEURA: Clear lungs. Normal pulmonary vascularity. No pleural effusion. No pneumothorax. HEART, MEDIASTINUM AND BROOK: Heart is normal in size. Aorta is mildly calcified. BONES AND SOFT TISSUES: No acute abnormality. IMPRESSION: No acute abnormality. WSN: [id number] Ordering Physician: Facundo Philippe Dictated By: Kaya Berry MD Dictated Date/Time: 07/03/23 6:36 pm Reviewed By: Kaya Berry MD Signed By: Kaya Berry MD Signed Date/Time: 07/03/23 6:36 pm Transcribed By: CANDACE Transcribed Date/Time: 07/03/23 6:34 pm Vital Signs Most recent to oldest [Reference Range]: 1 2 3 Height 168 cm (07/04/23 10:30 PM) 168 cm (07/03/23 10:40 PM) 168 cm (07/03/23 4:46 PM) Weight 68.0 kg (07/04/23 10:30 PM) 68.0 kg (07/03/23 10:40 PM) 68.0 kg (07/03/23 4:46 PM) Oxygen Saturation [94-100 %] 98 % (07/05/23 9:00 AM) 99 % (07/04/23 10:30 PM) 100 % (07/04/23 6:00 AM) Pulse Rate [55-90 bpm] 65 bpm (07/05/23 9:00 AM) 63 bpm (07/04/23 10:30 PM) 78 bpm (07/04/23 6:00 AM) Body Mass Index [18.5-24.99 kg/m2] 24.09 kg/m2 (07/04/23 10:30 PM) 24.09 kg/m2 (07/03/23 10:40 PM) Blood Pressure [90-138/55-84 mm Hg] 163/82mm Hg *H* (07/05/23 9:03 AM) 163/82mm Hg *H* (07/05/23 9:03 AM) 134/69mm Hg (07/04/23 10:30 PM) Respiratory Rate [16-30 br/min] 18 br/min (07/05/23 9:00 AM) 23 br/min (07/04/23 10:30 PM) 20 br/min (07/04/23 6:00 AM) Temperature [96.8-100.4 DegF] 98.4 DegF (07/05/23 9:00 AM) 98.6 DegF (07/04/23 6:00 AM) 98.4 DegF (07/04/23 2:00 AM) Mode of Delivery (Oxygen) Room air (07/04/23 10:30 PM) Room air (07/04/23 6:00 AM) Room air (07/04/23 2:00 AM) Blood pressure sites Arm, right (07/04/23 10:30 PM) Arm, left (07/04/23 6:00 AM) Arm, left (07/04/23 2:00 AM) Temperature Route Oral (07/05/23 9:00 AM) Oral (07/04/23 6:00 AM) Oral (07/04/23 2:00 AM) Dry Weight 68.0 kg (07/04/23 10:30 PM) 68.0 kg (07/03/23 10:40 PM) 68.0 kg (07/03/23 4:46 PM) Social History Social History Type Response Tobacco Use: 4 or less cigar ettes(less than 1/4 pack)/day in last 30 days. Sex Consult note * Hayley AMARO, Bronson Malone: PERFORM Event Display: Consult Authored Date: [id number] Patient: ??CHARLES LA ? Age:??67 Years?Sex:??Male?:??1955?? Chief Complaint Reason for consult: med management for agitation consult requested by: Charles Weir MD History of Present Illness Charles La is??a 67 y/o M w/hx of??AUD,??PTSD, anxiety, depression, seizure, chronic pain who wasBIBA on section 12 after erratic behavior in his neighborhood and making SI/HI threats. On admission??his BAL was 137 though he appeared clinically sober. He was evaluated by Crisis who obtained the following collateral:??Collateral information for Charles was conducted whens peaking with Gaetano Gonzalez,his SONG WRITER through [facility], who reports increased paranoia over the last few weeks, reporting he sees Javan daily for 5 hours a day and 35 hours weekly. Gaetano reports he has been increasingly worried about Javan as he has been inappropriate at nearly every engagement and he has been unable to take him into the community due to his inappropriateness, often yelling or saying all types of crazythings . Gaetano reports he has worked with??Javan or quite some time and has enjoyed working alongside him but feels he is unsure of how to support his psychiatric needs but is willing to help him to stop drinking with encouragement and feels that this is also increased over the past few weeks. Gaetano shared that Javan isn't taking any medication that he is aware of but if he was prescribed medication hewould ensure that he would be able to berry picker his medications and make sure he takes them as a partof working with him. He indicated that Javan has been increasingly agitated and often times exercising false beliefs and is unsure of how long things take or what time of day or the day is most days. SONG WRITER shared he is thankful hat he ended up in the hospital and can be contacted for information if need be. [1] ?? He is currently a psych bed search. Yesterday??he was agitated and??received??10 mg olanzapine and 2 mg lorazepam. Today he received 1 mg lorazepam at 3 AM and??2 mg at [address] head showed mild volume loss. EKG from 07/03 with normal QTc. he has been re-sarted??on home meds. ?? Temperature?98.6 ?(05:45) Systolic Blood Pressure?168 ?(11:24) Diastolic Blood Pressure?108 ?(11:24) Pulse?78 ?(05:45) SpO2?100 ?(05:45) Respiratory Rate?20 ?(05:45) ? [place] Suicide Score [place] Suicide Score Last Asked Ca (07/04/23) Suicidal Thoughts Since Last Asked-CSSRS: No (07/04/23) Suicide Behavior Since Last Asked-CSSRS: No (07/04/23) Assessment/Plan 67 y/o M w/hx of severe alcohol use disorder, PTSD, MDD, and anxiety here with erratic behavior andpsychosis. He is currently a psych bed search as per Crisis. He has required benzos??and olanzapinefor agitation. Recommend monitoring patient on CIWA for withdrawal, obtaining repeat EKG to assess QT, and using PRN haloperidol as needed for agitation. ?? Diagnosis: unspecified psychotic disorder PTSD AUD, severe ?? Recommendations: -dispo as per Crisis; currently a psych bed search -please monitor for alcohol withdrawal (consider CIWA with PRN lorazepam) -continue home meds as you are -start haloperidol 5 mg with 1 mg lorazepam IM/PO q4 PRN agitation -please obtain repeat EKG to ensure QTc is <500 given use of antipsychotics (recommend [facility] or [place] [facility]) ?? Recommendations sent via [employer] to Charles Weir MD. ? Bronson Hardy MD Attending, Psychiatry Consultation Service [facility] ?? 30 min spent reviewing the medical record, determining recommendations and plan, documenting??plan, and communicating recommendations to the primary team.?? Problem List/Past Medical History Ongoing Abdominal pain Alcohol abuse Bony pelvic pain C2 cervical fracture Chronic hepatitis C Degeneration of lumbar intervertebral disc Fecal urgency Follow-up exam Hand injury RT Hand swelling Heroin dependence Hip pain, left Knee pain, left Low back pain Lumbar microdiscectomy Passage of loose stools Prolapsed lumbar intervertebral disc Radicular syndrome of lower limbs Thumb injury Urinary hesitancy Procedure/Surgical History ???Appendectomy;???Cholecystectomy;???Hip and pelvis surgery???intestinal blockage???lumbar microdisectomy Medications Inpatient amLODIPine 5 mg oral tablet, 5 mg, By Mouth, Daily ARIPiprazole 2 mg oral tablet, 2 mg, By Mouth, Daily clonazePAM 1 mg oral tablet, 2 mg, By Mouth, 3 times a day, PRN Cymbalta 60 mg oral enteric coated capsule, 60 mg, By Mouth, Daily at bedtime folic acid 1 mg oral tablet, 1 mg, By Mouth, Daily Haloperidol LACTATE Inj, 7.5 mg= 1.5 mL, Intramuscular, Once Melatonin Tablet, 9 mg, By Mouth, Daily at bedtime, PRN pyridoxine 50 mg oral tablet, 50 mg, By Mouth, Daily thiamine 100 mg oral tablet, 100 mg, By Mouth, 2 times a day traZODone 50 mg oral tablet, 25 mg, By Mouth, Daily at bedtime valsartan 40 mg oral tablet, 40 mg, By Mouth, Daily Home Albuterol (Eqv-ProAir HFA) 90 mcg/inh inhalation aerosol, 2 puffs, Inhalation, Every 6 hours amLODIPine 5 mg oral tablet, 5 mg= 1 tablet, By Mouth, Daily ARIPiprazole 2 mg oral tablet, 2 mg= 1 tablet, By Mouth, Daily clonazePAM 1 mg oral tablet, 1 mg= 1 tablet, By Mouth, 3 times a day, PRN Cymbalta 20 mg oral enteric coated capsule, 60 mg, By Mouth, Daily at bedtime Doxazosin, 8 mg, By Mouth, 2 times a day Flomax 0.4 mg oral capsule, 0.4 mg= 1 capsule, By Mouth, Daily folic acid 1 mg oral tablet, 1 mg, By Mouth, Daily Imdur 60 mg oral tablet, extended release, 60 mg= 1 tablet, By Mouth, Daily in AM Lasix 40 mg oral tablet, 40 mg= 1 tablet, By Mouth, Daily propranolol 60 mg oral capsule, extended release, 60 mg= 1 capsule, By Mouth, Daily pyridoxine 50 mg oral tablet, 50 mg, By Mouth, Daily Suboxone 8 mg-2 mg sublingual film, 1 film, Sublingual, 3 times a day thiamine 100 mg oral tablet, 100 mg, By Mouth, 2 times a day traZODone 50 mg oral tablet, 25 mg, By Mouth, Daily at bedtime, PRN valsartan 40 mg oral tablet, 40 mg= 1 tablet, By Mouth, Daily Allergies NKA Social History Alcohol Use: Current. Frequency: 1-2 times per week. Substance Abuse Use: Current. Type: Marijuana. Tobacco Use: 4 or less cigarettes(less than 1/4 pack)/day in last 30 days. Daily EtOH use. Has a SONG WRITER involved in his care but lives independently. ?? Psychiatric History :Charles has a history of PTSD, MDD, and anxiety. He reported that he has a history of sucidie attempts via intentional overdose over 24 years ago . He reported he attempted suicide for over a year span following his first attempt.??Charles has a history of endorsing homicidalideation and suicidal ideation. ?? Family History Acute heart disease: Negative: Father. Arthritis 19-JUL-2013 07:27:07<$>: Negative: Mother and Father. Diabetes mellitus type II: Negative: Father. Hypertension: Father. Immunizations Vaccine Date Status pneumococcal 13-valent vaccine - Not Given Comments : Patient Refuses influenza virus vaccine, inactivated - Not Given Comments : Patient Refuses tetanus/diphtheria/pertussis, acel(Tdap) 10/07/2014 Given Lab Results Event Name?? Event Result?? Normal Range?? Date/Time?? WBC 14.2 k/mm3??High 4 k/mm3 - 11 k/mm3 07/03/23 16:48:00 RBC 4.08 m/mm3??Low 4.7 m/mm3 - 6.1 m/mm3 07/03/23 16:48:00 Hgb 12.9 Gm/dL??Low 13.7 Gm/dL - 17.1 Gm/dL 07/03/23 16:48:00 Hct 37.3 %??Low 40.5 % - 50 % 07/03/23 16:48:00 MCV 91.4 femtoliters 80 femtoliters - 94 femtoliters 07/03/23 16:48:00 MCH 31.6 pg 27 pg - 34 pg 07/03/23 16:48:00 MCHC 34.6 g/dL 33 g/dL - 37 g/dL 07/03/23 16:48:00 Platelet Count 235 k/mm3 150 k/mm3 - 460 k/mm3 07/03/23 16:48:00 RDW-SD 47.3 femtoliters??High ?? 07/03/23 16:48:00 MPV 10.6 femtoliters 9.4 femtoliters - 12.4 femtoliters 07/03/23 16:48:00 Nucleated RBC (Automated) 0 #/100 WBC'S ?? 07/03/23 16:48:00 Abs. NRBC 0 k/mm3 ?? 07/03/23 16:48:00 Abs. Neut 11 k/mm3??High 1.3 k/mm3 - 7 k/mm3 07/03/23 16:48:00 Abs. Lymph 1.6 k/mm3 0.8 k/mm3 - 3.1 k/mm3 07/03/23 16:48:00 Abs. Haakon 1.3 k/mm3 0.4 k/mm3 - 1.3 k/mm3 07/03/23 16:48:00 Abs. Eo 0.1 k/mm3 0 k/mm3 - 0.4 k/mm3 07/03/23 16:48:00 Abs. Baso 0.1 k/mm3 0 k/mm3 - 0.1 k/mm3 07/03/23 16:48:00 Neut % 77.9 %??High 44 % - 76 % 07/03/23 16:48:00 Lymph % 11.5 %??Low 15 % - 43 % 07/03/23 16:48:00 Haakon % 9.4 % 4.5 % - 10.5 % 07/03/23 16:48:00 Eos % 0.4 % 0 % - 6 % 07/03/23 16:48:00 Baso % 0.4 % 0 % - 2 % 07/03/23 16:48:00 Imm Gran 0.4 % ?? 07/03/23 16:48:00 Abs. Imm Gran 0.1 k/mm3 ?? 07/03/23 16:48:00 Hold Blue Top SPECIMEN DISCARDED AFTER 4 HOURS. ?? 07/03/23 16:48:00 Sodium 139 mmol/L 133 mmol/L - 145 mmol/L 07/03/23 16:48:00 Potassium 3.7 mmol/L 3.6 mmol/L - 5.2 mmol/L 07/03/23 16:48:00 Chloride 101 mmol/L 98 mmol/L - 107 mmol/L 07/03/23 16:48:00 Bicarbonate Level 20 mmol/L??Low 22 mmol/L - 29 mmol/L 07/03/23 16:48:00 Anion Gap 18??High 4 ??- 17 07/03/23 16:48:00 Glucose Level 92 mg/dL 70 mg/dL - 99 mg/dL 07/03/23 16:48:00 Glucose, POC 92 mg/dL 70 mg/dL - 99 mg/dL 07/03/23 16:41:00 BUN 20 mg/dL 8 mg/dL - 23 mg/dL 07/03/23 16:48:00 Creatinine-Blood 0.8 mg/dL 0.7 mg/dL - 1.2 mg/dL 07/03/23 16:48:00 Estimated GFR Creatinine 96 ML/MIN/1.73 M2 ?? 07/03/23 16:48:00 Calcium 9.8 mg/dL 8.6 mg/dL - 10.5 mg/dL 07/03/23 16:48:00 Protein, Total 8.2 Gm/dL 6.2 Gm/dL - 8.2 Gm/dL 07/03/23 16:48:00 Albumin 4.7 Gm/dL 3.4 Gm/dL - 4.8 Gm/dL 07/03/23 16:48:00 AG Ratio 1.3 ?? 07/03/23 16:48:00 Alkaline Phosphatase 71 units/L 40 units/L - 129 units/L 07/03/23 16:48:00 AST (SGOT) 41 units/L??High 0 units/L - 40 units/L 07/03/23 16:48:00 ALT (SGPT) 25 units/L 0 units/L - 41 units/L 07/03/23 16:48:00 Bilirubin, Total 1 mg/dL 0 mg/dL - 1.2 mg/dL 07/03/23 16:48:00 TSH 1.35 uIU/mL 0.4 uIU/mL - 4.2 uIU/mL 07/03/23 16:48:00 Ethanol, Serum or Plasma 137 mg/dL Abnormal ?? 07/03/23 16:48:00 Barbiturate Screen, Urine NONE DETECTED ?? 07/03/23 16:28:00 Cannabinoid Screen, Urine NONE DETECTED ?? 07/03/23 16:28:00 Cocaine Metabolite Screen, Urine NONE DETECTED ?? 07/03/23 16:28:00 Benzodiazepine Screen, Urine NONE DETECTED ?? 07/03/23 16:28:00 Amphetamine Screen, Urine NONE DETECTED ?? 07/03/23 16:28:00 Opiate Screen, Urine NONE DETECTED ?? 07/03/23 16:28:00 Hold Gel Top SPECIMEN DISCARDED AFTER 1 WEEK ?? 07/03/23 16:48:00 Hold De Dios Top SPECIMEN DISCARDED AFTER 1 WEEK ?? 07/03/23 16:48:00 Influenza A PCR NEGATIVE ?? 07/04/23 12:00:00 Influenza B PCR NEGATIVE ?? 07/04/23 12:00:00 RSV PCR NEGATIVE ?? 07/04/23 12:00:00 COVID-19 PCR Specimen Source NASAL ?? 07/04/23 12:00:00 COVID-19 PCR Result NEGATIVE ?? 07/04/23 12:00:00 Appear/Color, Urine LIGHT YELLOW ?? 07/03/23 16:28:00 Clarity CLEAR ?? 07/03/23 16:28:00 Specific [place], Urine <1.005 1.002 ??- 1.03 07/03/23 16:28:00 pH, Urine 6.5 5 ??- 8 07/03/23 16:28:00 Albumin, Urine NEGATIVE ?? 07/03/23 16:28:00 Glucose, Urine NEGATIVE ?? 07/03/23 16:28:00 Ketones, Urine NEGATIVE ?? 07/03/23 16:28:00 Bilirubin, Urine NEGATIVE ?? 07/03/23 16:28:00 Hemoglobin, Urine NEGATIVE ?? 07/03/23 16:28:00 Nitrite, Urine NEGATIVE ?? 07/03/23 16:28:00 Leukocyte, Urine NEGATIVE ?? 07/03/23 16:28:00 Urobilinogen NORMAL ?? 07/03/23 16:28:00 Hold Urine Culture Testing available 48 hours from time of collection. ?? 07/03/23 16:28:00 Est Creatinine Clearance 79.04 mL/min ?? 07/03/23 17:26:27 ? [1]??Crisis Initial Assessment; Dario Kareen 07/04/2023 08:59 EST EKG study * Event Display: ECG 12-Lead Authored Date: Please click on pdf link to open report * Event Display: ECG 12-Lead Authored Date: Ventricular Rate: 68 BPM Atrial Rate: 68 BPM P-R Interval: 162 ms QRS Duration: 86 ms Q-T Interval: 448 ms QTC Calculation(Bazett): 476 ms P [place]: 65 degrees R [place]: 67 degrees T [place]: 56 degrees Normal sinus rhythm with sinus arrhythmia Normal ECG When compared with ECG of 30-OCT-2022 14:04, T wave amplitude has increased in Lateral leads Confirmed by AMY PICHARDO MD ([id number]) on 07/04/2023 9:14:48 PM [place]: AMY PICHARDO MD Patient Care team information Care Team Personnel Name: Alisa Hatfield NP Position: [facility] Associate Professional Member Role: Primary Care Nurse Address: Address: [address] [place] [id number] Name: Kirk Bahena MD Position: [facility] Outreach Member Role: PCP Address: Address: [address] [place] [id number]- Name: Haritha Penaloza RN Position: [facility] SN Tool Room Machinist Member Role: Primary Care Nurse Name: Yakelin Tucker RN Position: [facility] RN Member Role: Primary Care Nurse Care Team Related Persons Name: GAROERICK DERIC Address: [place] [address] Name: JENNIFER GREY Address: home [address] [place], [place] Name: DION GREY Address: home [address] [place] [address] Name: ADRIENNE ROSENBAUM Address: home [address] [place] [address] Name: YENNIFER LA Address: [place] [address]
--- OUTSIDE RECORDS SUMMARY | 2023-12-01 21:45 | XMS_ITS | Continuity of Care Document ---
Author Organization [facility] ter Address [address] [place] [address]- Care Team Providers Care Area Intelligence Technician Name Role Phone Kirk Bahena MD Primary Care Physician [place] [facility]03/[place] - 07/03/[address] [address]- [facility] Attending Physician: Kirk Bahena MD Allergies, Adverse [...] than left by Yuliya Pena MD. at [facility]. Social History Social History Type Response Tobacco Use: 4 or less cigar ettes(less than 1/4 pack)/day in last 30 days. Sex
--- OUTSIDE RECORDS SUMMARY | 2023-12-01 21:45 | XMS_ITS | Continuity of Care Document ---
Author Organization [facility] Address [address] [place] [address]- Care Team Providers Care Agriculture Science Teacher Name Role Phone Kirk Bahena MD Primary Care Physician Encounter [facility] Date(s): 07/01/21 - 07/06/[address] [address]- Encounter Diagnosis Pain in left knee(Final) - Discharge Disposition: A-D/C Home Attending Physician: Kirk Bahena MD Admitting Physician: Kirk Bahena MD Referring Physician: Kirk Bahena MD Allergies, Adverse [...] than left by Yuliya Pena MD. at [facility]. Social History Social History Type Response Tobacco Use: 4 or less cigar ettes(less than 1/4 pack)/day in last 30 days. Sex
--- OUTSIDE RECORDS SUMMARY | 2023-12-01 21:45 | XMS_ITS | Continuity of Care Document ---
Author Organization [facility] r Address [address] [place] [address]- Care Team Providers Care Ceramics Instructor Name Role Phone Kirk Bahena MD Primary Care Physician Encounter [facility] Date(s): 07/21/21 - 08/26/[address] [address]- Attending Physician: Oliverio Castillo MD Admitting Physician: Oliverio Castillo MD Referring Physician: Oliverio Castillo MD Allergies, Adverse Reactions, Alerts No Known [...] Maintenance, 01/28/2013:01:00 EDT, Print Requisition Start Date: 9/17/20 Stop Date: 02/12/20 Status: Ordered Imdur 60 [...] left by Yuliya Pena MD. at [facility]. Social History Social History Type Response Tobacco Use: 4 or less cigar ettes(less than 1/4 pack)/day in last 30 days. Sex
--- OUTSIDE RECORDS SUMMARY | 2023-12-01 21:45 | XMS_ITS | Continuity of Care Document ---
Author Organization [facility] Address [address] [place] [address]- Care Team Providers Care Bridge Inspector Name Role Phone Kirk Bahena MD Primary Care Physician Encounter [facility] Date(s): 07/27/21 - 08/26/[address] [address]- Attending Physician: AdmDaquan woodall Admitting Physician: AdmtrDaquan Referring Physician: Admtr, Daquan Allergies, Adverse Reactions, Alerts No Known Allergies [...] than left by Yuliya Pena MD. at [facility]. Social History Social History Type Response Tobacco Use: 4 or less cigar ettes(less than 1/4 pack)/day in last 30 days. Sex
[2023-12-01] MEDS: 0.9 % Sodium Chloride 1,000 ML 999 ML IV ×2 (21:48→23:18)
[2023-12-01 21:56] LABS: Alanine Aminotransferase 6 U/L (0-40); Albumin Level 3.9 g/dL (3.5-5.0); Alkaline Phosphatase 41 U/L (39-117); Anion Gap 13 (12-20); Aspartate Amino Transferase 14 U/L (5-37); Bilirubin Direct 0.1 mg/dL (0.0-0.5); Bilirubin Total 0.4 mg/dL (0.0-1.0); Blood Urea Nitrogen 38 mg/dL (9-16); Calcium 9.6 mg/dL (8.4-10.2); Carbon Dioxide 29 mmol/L (22-29); Chloride 103 mmol/L (96-108); Creatinine Clr Calc Pharmacy 31.6; Estimated Glomerular Filt Rate 37; Ethanol < 10 mg/dL; Glucose Random 89 mg/dL (60-115); Lipase 7 U/L (8-78); Magnesium 2.4 mg/dL (1.6-2.6); Potassium 4.6 mmol/L (3.3-5.1); Sodium 140 mmol/L (135-145); Total Protein 6.6 g/dL (6.5-8.0); Troponin-I High Sensitivity 6.5 ng/L (<3.5-35.0)
--- NOTE | 2023-12-01 22:06 | ED.AMS ---
HPI - Altered Mental Status General Chief Complaint: Altered Mental Status Stated Complaint: cr[place], AMS, cornelius *46 hr Time Seen by Provider: 12/01/23 21:03 Source: patient, EMS and old records reviewed Mode of arrival: EMS Limitations: other (poor historian) History of Present Illness ED Provider: PHILLIP HPI narrative: 68 yo male coming from [place] inpatient EMS reports given night meds last night then lethargic and low BPs since this AM. He reports he is tired and not sleeping. EMS questioned med error but staff unable to provide information. Patient has PMH of methadone use, ETOH use, hep C, qtc prolongation, PTSD, asthma, depression. He denies chest pain, dyspnea, n/v/d, abdominal pain. He states he just wants to sleep. He has a nicotine patch on only. He was given trazodone, haldol, clonidine, possible ativan but is not on med list. records from [facility] 11/12/23 - was there for safety concerns, inability to care for himself and passive suidicality Cr 1.1 on 11/06/23, Cr was 1.28 on 11/23/23 looks like he was positive for COVID on 11/25/23 - PCR test complaint: decreased responsiveness and weakness Onset (ago): day(s) (this AM) Timing confirmed by: caregiver Severity: moderate Consistency of symptoms: unknown Context: unknown Associated symptoms: denies other symptoms Related Data Allergies Allergy/AdvReac Type Severity Reaction Status Date / Time Unable to Assess Allergy Verified 12/01/23 21:18 Review of Systems Review of Systems: Constitutional : No Fever, No Chills, pos Fatigue ENT/Mouth : No sore throat, No Rhinorrhea Eyes: No Eye Pain, No Swelling, No Redness Cardiovascular : No Chest Pain, No SOB, No Dyspnea on Exertion Respiratory : No Cough, No Sputum Gastrointestinal : No Nausea, No Vomiting, No Diarrhea, No abdominal Pain Genitourinary : No Dysuria, No Urinary Frequency, No Hematuria, Musculoskeletal : No joint pain, No Myalgias, No Joint Swelling Skin : No Skin Lesions, No rash Neuro : No Weakness, No Numbness, No Dizziness, no Headache Psych : No Anxiety/Panic, No Depression Heme/Lymph: No Bruising, No Bleeding,No Lymphadenopathy Endocrine : No Polyuria, No Polydipsia All other systems reviewed and are negative [facility] Past Medical History Attestation statement: The following information was validated with the patient. Medical History Active substance abuse Depression HTN (hypertension) Social History Social History Patient Tobacco Use Status: Current someday Tobacco user Advance Directives: No Advance Directives Information Provided: No Physical Exam ED Vital Signs: Vital Signs - 24 hr 12/01/23 21:16 12/01/23 22:56 12/02/23 00:14 Temperature 98.3 F 98.4 F 97.8 F Pulse Rate 46 L 48 L 64 Respiratory Rate 16 10 L 13 Blood Pressure 95/49 L 96/45 L 152/80 H Pulse Oximetry 96 92 98 Oxygen Delivery Method Room Air Room Air Room Air BMI result Body Mass Index 26.5 Appearance: somnolent but easily woken to voice Oriented X3. No acute distress. Eyes: Pupils equal, round and reactive to light. ENT: Pharynx dry MM Neck: Normal inspection. Neck supple. CVS: bradycardic heart rate and rhythm. Pulses normal. Respiratory: No respiratory distress. Breath sounds normal. Abdomen: Soft and nontender. Skin: Skin warm and dry. Normal skin color. Normal skin turgor. Extremities: No lower extremity edema. No calf ttp Neuro: Oriented X 3. No motor deficit. No sensory deficit. Course Course Course Narrative: 7/12 HR in 60s not on bblockers unsure if he was overdosed on clonidine at this time will dose x 1 with atropine and reasses no signs of infection at this time suspect hypotension related to dehydration and medications not infection or severe sepsis HR in 40s and he has low BP one time low dose atropine and will reassess - no known CAD per records. Reevaluation(s) Reevaluation #1: much more coherent after fluids did well with atropine HR up to 61 BP up will monitor x 1 hour and admit Reevaluation #2: BP was never below 90 found record of metoprolol added on glucagon and calcium Reevaluation #3: VS improved up and walking did well with medications Medications Administered Generic Name Dose Route Start Last Admin Trade Name Freq PRN Reason Stop Dose Admin Enoxaparin Sodium 40 mg 12/02/23 00:30 12/02/23 01:30 Enoxaparin Sodium 40 Mg/0.4 Ml Syringe SUBCUT 40 mg Q24H ZAIRA Administration Discontinued Medications Generic Name Dose Route Start Last Admin Trade Name Robin PRN Reason Stop Dose Admin Atropine Sulfate 0.5 mg 12/01/23 23:25 12/01/23 23:35 Atropine Sulfate 1 Mg/10 Ml Syringe IVPUSH 12/01/23 23:26 0.5 mg ONCE ONE Administration Glucagon 0.5 mg 12/02/23 00:15 12/02/23 00:29 Glucagon Hcl 1 Mg Vial IVPUSH 12/02/23 00:16 0.5 mg ONCE ONE Administration Sodium Chloride 1,000 mls @ 999 mls/hr 12/01/23 21:15 12/01/23 22:50 Ns IV 12/01/23 22:15 Infused .Q1H1M ONE Infusion Sodium Chloride 1,000 mls @ 999 mls/hr 12/01/23 22:42 12/02/23 00:20 Ns IV 12/01/23 23:42 Infused .Q1H1M ONE Infusion Calcium Gluconate 2 gm in 100 mls @ 50 mls/hr 12/02/23 00:15 12/02/23 02:30 Calcium Gluconate IV 12/02/23 02:14 Infused ONCE ONE Infusion Lorazepam 1 mg 12/02/23 03:24 12/02/23 03:43 Lorazepam 2 Mg/Ml Vial IVPUSH 12/02/23 03:25 1 mg STAT STA Administration Medical Decision Making Medical Decision Making [facility] Narrative: 68 yo male with PMH of methadone use, ETOH use, asthma, HTN, depression here with c/o lethargy since this AM he has no specific complaints other than being tired at this time will need basic labs, tox labs, EKG, CXR, CT head - low BP and low HR suspect possible clonidine use. I have ordered tele and IVF. Records from [place] requested. Differential Diagnosis Differential Diagnoses: The differential diagnosis associated with the presentation includes ICH, metabolic or toxic encephalopathy, med error, dehydration Admission/Observation Consideration of admission/observation: Escalation of care including admission/observation considered Lab Data [facility] Lab Attestation statement: I reviewed the patient's lab results. 12/01/23 21:05 12/01/23 21:05 Labs: Lab Results 12/01/23 12/01/23 12/01/23 Range/Units 21:05 22:05 22:09 WBC 5.8 (4.8-10.8) X10*3/uL RBC 3.19 L (4.60-5.80) X10*6/uL Hgb 10.4 L (14.0-18.0) g/dl Hct 29.6 L (42.0-52.0) % MCV 92.8 (80.0-98.0) fL MCH 32.6 (27.0-33.0) pg MCHC 35.1 (31.0-36.0) g/dl RDW 12.4 (11.0-16.0) % Plt Count 213 (160-400) X10*3/uL MPV 11.3 (9.4-12.4) fL Immature Gran % (Auto) 0.3 (0.0-0.4) % Neut % (Auto) 61.1 (45-73) % Lymph % (Auto) 21.5 (20-40) % [place] % (Auto) 12.7 H (2-11) % Eos % (Auto) 3.5 (0-4) % Baso % (Auto) 0.9 (0-2) % Lymph # (Auto) 1.2 (1.2-4.9) X10*3/uL [place] # (Auto) 0.7 (0.1-1.2) X10*3/uL Eos # (Auto) 0.2 (0.0-0.4) X10*3/uL Baso # (Auto) 0.1 (0.0-0.2) X10*3/uL Abs Immat Gran (auto) 0.02 (0.00-0.03) X10*3/uL Absolute Neuts (auto) 3.5 (2.0-8.3) x10*3/uL Absolute Nucleated RBC 0.000 (0.0-0.012) X10*3/uL Nucleated RBC % (auto) 0.0 (0.0-0.2) /100WBC Hold Purple Top SEE NOTE Hold Blue Top SEE NOTE VBG pH 7.44 H (7.32-7.43) VBG pCO2 43 mmHg VBG pO2 59 mmHg VBG HCO3 29 H (22-26) mmol/L VBG O2 Saturation 89.0 % VBG Base Excess 4.7 mmol/L Sodium 140 (135-145) mmol/L Potassium 4.6 (3.3-5.1) mmol/L Chloride 103 (96-108) mmol/L Carbon Dioxide 29 (22-29) mmol/L Anion Gap 13 (12-20) BUN 38 H (9-16) mg/dL Creatinine 1.82 H (0.5-1.4) mg/dL Estim Creat Clear Calc 31.6 Estimated GFR 37 Random Glucose 89 (60-115) mg/dL Lactic Acid 0.8 (0.5-2.0) mmol/L Calcium 9.6 (8.4-10.2) mg/dL Magnesium 2.4 (1.6-2.6) mg/dL Total Bilirubin 0.4 (0.0-1.0) mg/dL Direct Bilirubin 0.1 (0.0-0.5) mg/dL AST 14 (5-37) U/L ALT 6 (0-40) U/L Alkaline Phosphatase 41 (39-117) U/L Ammonia (13-55) umol/L Total Creatine Kinase 71 (38-174) U/L Troponin I High Sens 6.5 (<3.5-35.0) ng/L Total Protein 6.6 (6.5-8.0) g/dL Albumin 3.9 (3.5-5.0) g/dL Lipase 7 L (8-78) U/L TSH 1.11 (0.32-4.0) uIU/mL Ethyl Alcohol < 10 mg/dL 12/01/23 Range/Units 22:27 WBC (4.8-10.8) X10*3/uL RBC (4.60-5.80) X10*6/uL Hgb (14.0-18.0) g/dl Hct (42.0-52.0) % MCV (80.0-98.0) fL MCH (27.0-33.0) pg MCHC (31.0-36.0) g/dl RDW (11.0-16.0) % Plt Count (160-400) X10*3/uL MPV (9.4-12.4) fL Immature Gran % (Auto) (0.0-0.4) % Neut % (Auto) (45-73) % Lymph % (Auto) (20-40) % [place] % (Auto) (2-11) % Eos % (Auto) (0-4) % Baso % (Auto) (0-2) % Lymph # (Auto) (1.2-4.9) X10*3/uL [place] # (Auto) (0.1-1.2) X10*3/uL Eos # (Auto) (0.0-0.4) X10*3/uL Baso # (Auto) (0.0-0.2) X10*3/uL Abs Immat Gran (auto) (0.00-0.03) X10*3/uL Absolute Neuts (auto) (2.0-8.3) x10*3/uL Absolute Nucleated RBC (0.0-0.012) X10*3/uL Nucleated RBC % (auto) (0.0-0.2) /100WBC Hold Purple Top Hold Blue Top VBG pH (7.32-7.43) VBG pCO2 mmHg VBG pO2 mmHg VBG HCO3 (22-26) mmol/L VBG O2 Saturation % VBG Base Excess mmol/L Sodium (135-145) mmol/L Potassium (3.3-5.1) mmol/L Chloride (96-108) mmol/L Carbon Dioxide (22-29) mmol/L Anion Gap (12-20) BUN (9-16) mg/dL Creatinine (0.5-1.4) mg/dL Estim Creat Clear Calc Estimated GFR Random Glucose (60-115) mg/dL Lactic Acid (0.5-2.0) mmol/L Calcium (8.4-10.2) mg/dL Magnesium (1.6-2.6) mg/dL Total Bilirubin (0.0-1.0) mg/dL Direct Bilirubin (0.0-0.5) mg/dL AST (5-37) U/L ALT (0-40) U/L Alkaline Phosphatase (39-117) U/L Ammonia 17 (13-55) umol/L Total Creatine Kinase (38-174) U/L Troponin I High Sens (<3.5-35.0) ng/L Total Protein (6.5-8.0) g/dL Albumin (3.5-5.0) g/dL Lipase (8-78) U/L TSH (0.32-4.0) uIU/mL Ethyl Alcohol mg/dL Independent Interpretation I performed an independent interpretation of an: EKG, Plain X-Ray (no pneumonia) and CT Scan (no ICH) Interpretation: Rate: 46 Rhythm: sinus bradycardia [place]: normal Normal P waves. Normal DAR. Normal QRS complex. ST T wave : artifact noted but no KALRA, nonspecific ST T wave changes lateral leads qTC: 463 prior studies: no prior The study has been interpreted contemporaneously by me. . Radiology Impression Discussion of test interpretation with radiology: I have reviewed the radiologist's reading. Critical Care Time Critical Care Time Critical Care Time: Yes Total Critical Care Time: 45 Attestation: review of records, admission, IVF x 2L, atropine, IV calcium I attest to this time spent taking care of the patient Discharge Plan Discharge Clinical Impression: KATHRYN (acute kidney injury) Altered mental status Qualifiers: Altered mental status type: unspecified Qualified Code(s): R41.82 - Altered mental status, unspecified Patient Disposition: Admitted As Inpatient
[2023-12-01 22:10] LABS: TSH reflex Free T4 1.11 uIU/mL (0.32-4.0)
[2023-12-01 22:17] LABS: VBG Base Excess 4.7 mmol/L; VBG HCO3 29 mmol/L (22-26); VBG pCO2 43 mmHg; VBG pH 7.44 (7.32-7.43); VBG pO2 59 mmHg
[2023-12-01 22:20] LABS: Venous Blood Gas Refer to POC result
[2023-12-01 22:20] LABS: Lactic Acid 0.8 mmol/L (0.5-2.0)
[2023-12-01 22:38] LABS: Ammonia 17 umol/L (13-55)
[2023-12-01 22:56] VITALS: BP 96/45; PULSE 48; RESP 10; TEMP 36.9; O2SAT 92
[2023-12-01] MEDS: Atropine Sulfate 1 MG/10 ML SYRINGE 0.5 MG IVPUSH (23:35)
--- NOTE | 2023-12-01 23:41 | PC.NURSE ---
Pt medicated per mar. Provider with pt. Provider aware of pts b/p and hr. Plan of care ongoing.
[2023-12-02] VITALS (8 sets, daily range): BP systolic 119–171; BP diastolic 56–87; PULSE 59–75; RESP 13–20; TEMP 36.4–37.1; O2SAT 92–98; BMI 26.7
--- NOTE | 2023-12-02 | ECG_ITS ---
Test Reason : PSYCH MEDS Blood Pressure : / mmHG Vent. Rate : 068 BPM Atrial Rate : 068 BPM P-R Int : 170 ms QRS Dur : 096 ms QT Int : 446 ms P-R-T Axes : 054 061 038 degrees QTc Int : 474 ms Sinus rhythm with Premature atrial complexes Otherwise normal ECG When compared with ECG of 01-DEC-2023 21:06, Premature atrial complexes are now Present Vent. rate has increased BY 22 BPM Referred By: Denis Arrieta Electronically Signed By:ESHA ARMENDARIZ
--- NOTE | 2023-12-02 00:18 | P.HPHOSP_ITS ---
History of Present Illness Date of Service: 12/02/23 Chief Complaint: Fatigue and hypotension This is a 68-year-old male with pertinent history of mood disorder, hypertension, alcohol use disorder, BPH who was sent to the emergency department from [facility] for evaluation of low blood pressure and low heart rate. Patient was at [facility] for inability to take care of himself and suicidal ideation. Patient apparently was given his nighttime meds and soon after started having low BP and low heart rate. Patient was also found to be lethargic and tired. He is unable to provide history and does not know why he is in the hospital. EMS question medication error but staff at [facility] was not able to provide information. He denies any complaints at the time of my evaluation. Unable to obtain review of systems. In the emergency department, heart rate and blood pressure improved with IV fluids, atropine, calcium gluconate and glucagon. He was found to have KATHRYN with creatinine 1.8 Review of Systems 2 Review of Systems: Yes Unobtainable due to mental condition [facility] Medical History Active substance abuse Depression HTN (hypertension) Pertinent family history: Unable to obtain Social History Patient Tobacco Use Status: Current someday Tobacco user Advance Directives: No Advance Directives Information Provided: No Meds Allergies Allergy/AdvReac Type Severity Reaction Status Date / Time Unable to Assess Allergy Verified 12/01/23 21:18 Active Medications: Current Medications Calcium Gluconate (Calcium Gluconate) 2 gm in 100 mls @ 50 mls/hr IV ONCE ONE Stop: 12/02/23 02:14 Physical Exam 2 Vital Signs and Narrative: Vital Signs: Last Vital Signs Temp 97.8 F 12/02/23 00:14 Pulse 64 12/02/23 00:14 Resp 13 12/02/23 00:14 BP 152/80 H 12/02/23 00:14 Pulse Ox 98 12/02/23 00:14 O2 Del Method Room Air 12/02/23 00:14 BMI result Body Mass Index 26.5 Middle-aged male lying in bed in no distress Neck supple, no JVD Regular rate and rhythm, S1-S2 heard Regular breath sounds bilaterally, no wheezing or crackles appreciated Abdomen soft nontender, no guarding, no rigidity Patient is awake, alert and oriented to self, disoriented to place, time and person ; no focal motor deficit Psych: Normal mood No pedal edema Results Labs 12/01/23 21:05 12/01/23 21:05 Labs: Laboratory Results - last 24 hr 12/01/23 12/01/23 12/01/23 21:05 22:05 22:09 MCV 92.8 MCH 32.6 MCHC 35.1 RDW 12.4 Plt Count 213 MPV 11.3 Immature Gran % (Auto) 0.3 Neut % (Auto) 61.1 Lymph % (Auto) 21.5 [place] % (Auto) 12.7 H Eos % (Auto) 3.5 Baso % (Auto) 0.9 Lymph # (Auto) 1.2 [place] # (Auto) 0.7 Eos # (Auto) 0.2 Baso # (Auto) 0.1 Abs Immat Gran (auto) 0.02 Absolute Neuts (auto) 3.5 Absolute Nucleated RBC 0.000 Nucleated RBC % (auto) 0.0 Hold Purple Top SEE NOTE Hold Blue Top SEE NOTE VBG pH 7.44 H VBG pCO2 43 VBG pO2 59 VBG HCO3 29 H VBG O2 Saturation 89.0 VBG Base Excess 4.7 Anion Gap 13 Estim Creat Clear Calc 31.6 Estimated GFR 37 Random Glucose 89 Lactic Acid 0.8 Calcium 9.6 Magnesium 2.4 Total Bilirubin 0.4 Direct Bilirubin 0.1 AST 14 ALT 6 Alkaline Phosphatase 41 Ammonia Total Creatine Kinase 71 Troponin I High Sens 6.5 Total Protein 6.6 Albumin 3.9 Lipase 7 L TSH 1.11 Ethyl Alcohol < 10 12/01/23 22:27 MCV MCH MCHC RDW Plt Count MPV Immature Gran % (Auto) Neut % (Auto) Lymph % (Auto) [place] % (Auto) Eos % (Auto) Baso % (Auto) Lymph # (Auto) [place] # (Auto) Eos # (Auto) Baso # (Auto) Abs Immat Gran (auto) Absolute Neuts (auto) Absolute Nucleated RBC Nucleated RBC % (auto) Hold Purple Top Hold Blue Top VBG pH VBG pCO2 VBG pO2 VBG HCO3 VBG O2 Saturation VBG Base Excess Anion Gap Estim Creat Clear Calc Estimated GFR Random Glucose Lactic Acid Calcium Magnesium Total Bilirubin Direct Bilirubin AST ALT Alkaline Phosphatase Ammonia 17 Total Creatine Kinase Troponin I High Sens Total Protein Albumin Lipase TSH Ethyl Alcohol Imaging Radiologist's Impressions: Impressions Chest X-Ray 12/01/23 21:21 IMPRESSION: No pneumonia or edema. Head CT 12/01/23 21:40 IMPRESSION: No intracranial hemorrhage or mass effect. Mild generalized atrophy and chronic small vessel white matter ischemic changes. Assessment and Plan (1) KATHRYN (acute kidney injury): Status: Acute (2) Hypotension: Status: Acute (3) Bradycardia: Status: Acute Plan This is a 68-year-old male with pertinent history of mood disorder, hypertension, alcohol use disorder, BPH who was sent to the emergency department from [facility] for evaluation of low blood pressure and low heart rate. #. Hypotension and bradycardia: Likely medication error (overdose) as it started after patient was administered his nighttime meds at outside facility. He is on clonidine and metoprolol upon medication review. Improvement noted with blood pressure and heart rate after receiving IV fluids, calcium gluconate, atropine and glucagon in the ER. Continue to monitor. #. Acute encephalopathy in the setting of above: Continue to monitor mentation #. Acute kidney injury stage I: Baseline creatinine 1.1-1.2. Monitor creatinine and urine output with crystalloid resuscitation. Avoid nephrotoxins #. Mood disorder with suicidal ideation: Consulting sitter and Psychiatry. Patient is on Cymbalta, hydroxyzine and trazodone #. BPH: On Flomax #. Hypertension: On losartan, metoprolol and furosemide. Hold in the setting of hypotension, restart as appropriate #. Alcohol use disorder: On thiamine Med rec pending DVT prophylaxis: Lovenox Full code Admit as inpatient and will require two night minimum hospital stay for monitoring of kidney function, hemodynamic monitoring (as above), which is not possible in a lesser acute setting. Quality Stroke Does the patient have a stroke diagnosis?: No VTE Prior VTE?: No VTE Risk Level:: Medical - moderate - high VTE Device Contraindication: Treatment Not Indicated VTE Drug Contraindication: N/A - Med Ordered
[2023-12-02] MEDS: glucagon HCL 1 MG VIAL 0.5 MG IVPUSH (00:29)
[2023-12-02] MEDS: Calcium Gluconate/NaCl,Iso-Osm 2 GM/100 ML PLAST..BAG IV (00:29)
--- NOTE | 2023-12-02 00:48 | PC.NURSE ---
Pt medicated per jul. [facility] staff at bedside. Plan of care ongoing.
[2023-12-02] MEDS: Enoxaparin Sodium 40 MG/0.4 ML SYRINGE SUBCUT (01:30)
--- NOTE | 2023-12-02 03:01 | PC.NURSE ---
Pt agitated and ambulating away from bed and room. Pt redirected back into room Pt requesting food and drink. Dr Medley notified and aware ok to give pt food and drink. Pt back in bed eating food calm and cooperative. Plan of care ongoing.
--- NOTE | 2023-12-02 03:25 | PC.NURSE ---
Pt aggressive and agitated when asked where he was going. Pt redirected to restroom. UA collected Pt assisted back into room and bed by tech. Plan of care ongoing.
[2023-12-02 03:31] LABS: Appearance Urine Clear; Color Urine Yellow; Glucose Urine UA Negative (Negative); Leukocyte Esterase Urine Negative (Negative); Nitrite Urine Negative (Negative); Specific Gravity - Urine 1.015 (1.005-1.025); Urine Blood Negative (Negative); Urine Ketones Negative (Negative); Urine Protein Negative (Neg-Trace)
[2023-12-02 03:41] LABS: Amphetamine Screen Urine Not Detected (Not Detect); Barbiturates, Urine Not Detected (Not Detect); Benzodiazepines Screen Urine Not Detected (Not Detect); Buprenorphine Scr Not Detected (Not Detect); Cannabinoid Screen Urine Not Detected (Not Detect); Cocaine Screen Urine Not Detected (Not Detect); Fentanyl, urine Not Detected (Not Detect); Methadone Screen, Urine Positive (Not Detect); Opiate Screen Urine Not Detected (Not Detect); Oxycodone Screen Urine Not Detected (Not Detect); Phencyclidine Screen Urine Not Detected (Not Detect)
[2023-12-02] MEDS: LORazepam 2 MG/ML VIAL 1 MG IVPUSH ×3 (03:43→12:09)
--- NOTE | 2023-12-02 03:44 | PC.NURSE ---
Pt behind nurses station. Pt agitated with tech. Plan of care ongoing.
[2023-12-02 05:02] LABS: Hematocrit 27.8 % (42.0-52.0); Hemoglobin 9.7 g/dl (14.0-18.0); Mean Corpuscular HGB Conc 34.9 g/dl (31.0-36.0); Mean Corpuscular Hemoglobin 32.2 pg (27.0-33.0); Mean Corpuscular Volume 92.4 fL (80.0-98.0); Mean Platelet Volume 11.3 fL (9.4-12.4); Platelet Count 204 X10*3/uL (160-400); Red Blood Count 3.01 X10*6/uL (4.60-5.80); Red Cell Distribution Width 12.4 % (11.0-16.0); White Blood Count 5.1 X10*3/uL (4.8-10.8)
[2023-12-02 05:20] LABS: Anion Gap 13 (12-20); Blood Urea Nitrogen 34 mg/dL (9-16); Calcium 9.6 mg/dL (8.4-10.2); Carbon Dioxide 23 mmol/L (22-29); Chloride 107 mmol/L (96-108); Creatinine Clr Calc Pharmacy 40.2; Estimated Glomerular Filt Rate 49; Glucose Random 78 mg/dL (60-115); Potassium 4.4 mmol/L (3.3-5.1); Sodium 139 mmol/L (135-145)
--- NOTE | 2023-12-02 06:19 | PC.NURSE ---
Pt pacing around unit with sitter, refusing to keep on pulse ox. Plan of care ongoing.
--- NOTE | 2023-12-02 08:51 | MHC.CM.PN ---
Per H&P, Patient is unable to provide history (AMS) and Patient has no listed Contacts. IMM filled out, should Patient's MS improve;both original and copy are on the chart. CM left a detailed message for Medical Records at [facility]([phone]), where Patient came from, requesting a copy of HCP/Guardianship be faxed to CM. Patient will need a Care Team Consult to assist with disposition. CM has initiated and will follow for dc planning.
--- NOTE | 2023-12-02 12:02 | PHA.MEDREC ---
Pharmacy Consult ? Medication Reconciliation Pharmacy has completed the medication reconciliation. Spoke with Nurse Emerita at [facility]. She confirmed his methadone tablets are for opioid dependence and last received it yesterday at 8:35 AM. He is on vitamin b12 1000 unit tablets - 2 tabs daily, is NOT receiving the injection. He has not been given ferrous fumarate but has been getting ferrous sulfate. There was no documentation of when haloperidol or clonidine was last given. The only thing not on the list given to us was Miralax once daily.
--- NOTE | 2023-12-02 12:29 | HO.PM.IMPN ---
Subjective Subjective Date of Service: 12/03/23 Interval History: f/u on hypotension, bradycardia, renal failure Pschosis. He is extremely agitated, hallucinating constantly getting out of bed, anxious, given ativan x 2 mg Physical Exam Vital Signs: Vital Signs: Last Vital Signs Temp 98.3 F 12/02/23 11:30 Pulse 62 12/02/23 11:30 Resp 17 12/02/23 11:30 BP 158/84 H 12/02/23 11:30 Pulse Ox 95 12/02/23 11:30 O2 Del Method Room Air 12/02/23 11:30 O2 Flow Rate 95 12/02/23 08:36 BMI result Body Mass Index 26.7 General: oriented to zaid, not in distress, extremely agitated Resp: CTA bilateral CVS: S1,S2,RRR GI: +BS, NT, no distention Skin: No rash Neuro: motor grossly intact Psych: appropriate affect Objective Data Active Medications Acetaminophen (Acetaminophen 325 Mg Tablet) 650 mg PO Q6H PRN PRN Reason: Pain, Mild (Pain Scale 1-3), fever or headache Albuterol Sulfate (Albuterol Sulfate 90 Mcg 8 Gm Inhaler) 2 puff INHALE Q6H PRN PRN Reason: Wheezing Benztropine Mesylate (Benztropine Mesylate 0.5 Mg Tablet) 0.5 mg PO BID [facility] Calcium Carbonate (Calcium Carbonate 750 Mg Tab.Chew) 750 mg PO Q4H PRN PRN Reason: Heartburn Cyanocobalamin (Cyanocobalamin (Vitamin B-12) 1,000 Mcg Tablet) 2,000 mcg PO DAILY [facility] Duloxetine HCl (Duloxetine Hcl 60 Mg Capsule.Dr) 60 mg PO DAILY [facility] Enoxaparin Sodium (Enoxaparin Sodium 40 Mg/0.4 Ml Syringe) 40 mg SUBCUT Q24H [facility] Last Admin: 12/02/23 01:30 Dose: 40 mg Documented By: JUNE Haloperidol (Haloperidol 5 Mg Tablet) 5 mg PO BID [facility] Magnesium Hydroxide (Milk Of Magnesia 30 Ml Oral.Susp) 30 ml PO DAILY PRN PRN Reason: Constipation Melatonin (Melatonin 3 Mg Tablet) 6 mg PO BEDTIME PRN PRN Reason: Insomnia Methadone HCl (Methadone Hcl 10 Mg Tablet) 40 mg PO DAILY [facility] Multivitamins/Vitamin C (Multivitamin Tablet) 1 tab PO DAILY [facility] Nicotine (Nicotine 21 Mg Patch.Td24) mg TRANSDERMA DAILY [facility] Non-Formulary Medication (Ferrous Sulfate) 325 mg PO BIDWM [facility] Ondansetron HCl (Ondansetron Hcl 4 Mg/2 Ml Vial) 4 mg IVPUSH Q8H PRN PRN Reason: Nausea and Vomiting Polyethylene Glycol (Polyethylene Glycol 3350 17 Gm Powd.Pack) 17 gm PO DAILY [facility] Sodium Chloride (0.9 % Sodium Chloride Flush 3 Ml Syringe) 3 ml IVFLUSH QSHIFT [facility] Last Admin: 12/02/23 07:21 Dose: Not Given Documented By: PAULA Non-Admin Reason: See Note Tamsulosin HCl (Tamsulosin Hcl 0.4 Mg Capsule) 0.4 mg PO BEDTIME [facility] Thiamine HCl (Thiamine Hcl 100 Mg Tablet) 100 mg PO DAILY [facility] Trazodone HCl (Trazodone Hcl 50 Mg Tablet) 50 mg PO BEDTIME PRN PRN Reason: Insomnia Labs 12/02/23 04:35 12/03/23 05:43 Labs: Laboratory Results - last 24 hr 12/01/23 12/01/23 12/01/23 21:05 22:05 22:09 MCV 92.8 MCH 32.6 MCHC 35.1 RDW 12.4 Plt Count 213 MPV 11.3 Immature Gran % (Auto) 0.3 Neut % (Auto) 61.1 Lymph % (Auto) 21.5 [place] % (Auto) 12.7 H Eos % (Auto) 3.5 Baso % (Auto) 0.9 Lymph # (Auto) 1.2 [place] # (Auto) 0.7 Eos # (Auto) 0.2 Baso # (Auto) 0.1 Abs Immat Gran (auto) 0.02 Absolute Neuts (auto) 3.5 Absolute Nucleated RBC 0.000 Nucleated RBC % (auto) 0.0 Hold Purple Top SEE NOTE Hold Blue Top SEE NOTE VBG pH 7.44 H VBG pCO2 43 VBG pO2 59 VBG HCO3 29 H VBG O2 Saturation 89.0 VBG Base Excess 4.7 Anion Gap 13 Estim Creat Clear Calc 31.6 Estimated GFR 37 Random Glucose 89 Lactic Acid 0.8 Calcium 9.6 Magnesium 2.4 Total Bilirubin 0.4 Direct Bilirubin 0.1 AST 14 ALT 6 Alkaline Phosphatase 41 Ammonia Total Creatine Kinase 71 Troponin I High Sens 6.5 Total Protein 6.6 Albumin 3.9 Lipase 7 L TSH 1.11 Urine Color Urine Appearance Urine pH Ur Specific [place] Urine Protein Urine Glucose (UA) Urine Ketones Urine Blood Urine Nitrite Ur Leukocyte Esterase Urine Opiates Screen Ur Buprenorphine Scrn Ur Oxycodone Screen Urine Methadone Screen Urine Fentanyl Screen Ur Barbiturates Screen Ur Phencyclidine Scrn Ur Amphetamines Screen U Benzodiazepines Scrn Urine Cocaine Screen U Marijuana (THC) Screen Ethyl Alcohol < 10 12/01/23 12/02/23 12/02/23 22:27 03:23 04:35 MCV 92.4 MCH 32.2 MCHC 34.9 RDW 12.4 Plt Count 204 MPV 11.3 Immature Gran % (Auto) Neut % (Auto) Lymph % (Auto) [place] % (Auto) Eos % (Auto) Baso % (Auto) Lymph # (Auto) [place] # (Auto) Eos # (Auto) Baso # (Auto) Abs Immat Gran (auto) Absolute Neuts (auto) Absolute Nucleated RBC 0.000 Nucleated RBC % (auto) 0.0 Hold Purple Top Hold Blue Top VBG pH VBG pCO2 VBG pO2 VBG HCO3 VBG O2 Saturation VBG Base Excess Anion Gap 13 Estim Creat Clear Calc 40.2 Estimated GFR 49 Random Glucose 78 Lactic Acid Calcium 9.6 Magnesium Total Bilirubin Direct Bilirubin AST ALT Alkaline Phosphatase Ammonia 17 Total Creatine Kinase Troponin I High Sens Total Protein Albumin Lipase TSH Urine Color Yellow Urine Appearance Clear Urine pH 6.0 Ur Specific [place] 1.015 Urine Protein Negative Urine Glucose (UA) Negative Urine Ketones Negative Urine Blood Negative Urine Nitrite Negative Ur Leukocyte Esterase Negative Urine Opiates Screen Not Detected Ur Buprenorphine Scrn Not Detected Ur Oxycodone Screen Not Detected Urine Methadone Screen Positive H Urine Fentanyl Screen Not Detected Ur Barbiturates Screen Not Detected Ur Phencyclidine Scrn Not Detected Ur Amphetamines Screen Not Detected U Benzodiazepines Scrn Not Detected Urine Cocaine Screen Not Detected U Marijuana (THC) Screen Not Detected Ethyl Alcohol Assessment and Plan (1) Bradycardia: Status: Acute (2) Hypotension: Status: Acute (3) KATHRYN (acute kidney injury): Status: Acute (4) Altered mental status: Status: Acute Plan 68-year-old male with pertinent history of mood disorder, hypertension, alcohol use disorder, BPH who was sent to the emergency department from [facility] for evaluation of low blood pressure and low heart rate, he is actively Psychotic Hypotension and bradycardia, no sepsis, there possibily of med error at outside facility, -holding lasix, losartan, clonidine and metoprolol -BP has trended up but will continue holding med and reintroduced slow KATHRYN--likely related to Hypotension, renal function is already improving, hold lasix, losartan, has received IVF check BMP in the morning, baseline 1.2 Acute Psychosis--resume meds (haldol, cogentin), Psych to him, I don't thinke he is encephalopathic, probably delirious, ammonia normal Mood disorder with suicidal ideation: Consulting sitter and Psychiatry. Patient is on Cymbalta, hydroxyzine and trazodone BPH: On Flomax Hypertension: On losartan, metoprolol and furosemide. Hold in the setting of hypotension, restart as appropriate Opioid dependence--on methadone Bradycardia--likely d/t metoprolol (not on med rec but at outpatient pharmacy) and clonidine Alcohol use disorder: On thiamine, unclear if any of this could be withdrawal, will discuss with Psych DVT prophylaxis: Roslynx Full code Admit as inpatient and will require two night minimum hospital stay for monitoring of kidney function, hemodynamic monitoring (as above), which is not possible in a lesser acute setting. Quality Stroke Does the patient have a stroke diagnosis?: No VTE Prior VTE?: No VTE Risk Level:: Medical - moderate - high VTE Device Contraindication: Treatment Not Indicated VTE Drug Contraindication: N/A - Med Ordered
--- NOTE | 2023-12-02 12:34 | PM.PSYCN ---
History of Present Illness Date of Service: 12/02/23 Chief Complaint: hypotension Reason for Consult: med management for psychosis and agitation Discussed with referring provider: Yes Sources of Information: patient interviewed and chart reviewed HPI Narrative: As per ED notes 11/29: 68 yo male coming from [facility] inpatient EMS reports given night meds last night then lethargic and low BPs since this AM. He reports he is tired and not sleeping. EMS questioned med error but staff unable to provide information. Patient has PMH of methadone use, ETOH use, hep C, qtc prolongation, PTSD, asthma, depression. He denies chest pain, dyspnea, n/v/d, abdominal pain. He states he just wants to sleep. He has a nicotine patch on only. He was given trazodone, haldol, clonidine, possible ativan but is not on med list. records from [facility] 11/12/23 - was there for safety concerns, inability to care for himself and passive suidicality As per hospitalist H and P: history of mood disorder, hypertension, alcohol use disorder, BPH who was sent to the emergency department from [facility] for evaluation of low blood pressure and low heart rate. Patient was at [facility] for inability to take care of himself and suicidal ideation. Patient apparently was given his nighttime meds and soon after started having low BP and low heart rate. Patient was also found to be lethargic and tired. He is unable to provide history and does not know why he is in the hospital. EMS question medication error but staff at [place] was not able to provide information. He denies any complaints at the time of my evaluation. Unable to obtain review of systems. In the emergency department, heart rate and blood pressure improved with IV fluids, atropine, calcium gluconate and glucagon. He was found to have KATHRYN with creatinine 1.8 #. Hypotension and bradycardia: Likely medication error (overdose) as it started after patient was administered his nighttime meds at outside facility. He is on clonidine and metoprolol upon medication review. Improvement noted with blood pressure and heart rate after receiving IV fluids, calcium gluconate, atropine and glucagon in the ER. Continue to monitor. #. Acute encephalopathy in the setting of above: Continue to monitor mentation #. Acute kidney injury stage I: Baseline creatinine 1.1-1.2. Monitor creatinine and urine output with crystalloid resuscitation. Avoid nephrotoxins #. Mood disorder with suicidal ideation: Consulting sitter and Psychiatry. Patient is on Cymbalta, hydroxyzine and trazodone #. BPH: On Flomax #. Hypertension: On losartan, metoprolol and furosemide. Hold in the setting of hypotension, restart as appropriate #. Alcohol use disorder: On thiamine Also noted sen in ED 07/13/2023: 67-year-old male who states that he accidentally called 911 twice and as per EMS they had informed him that he felt like he was having a heart attack which patient adamantly denies at this time. Patient refused transportation the 1st time but then states that he was talked into it on the 2nd time. Discharged AMA. No cognitive concerns noted. Today: Agitation and paranoia noted. In room, clearly visual hallucinations, restless, distressed, difficult to make out and very poor concentration. Baseline appears to be very different to this- review discharge summary from [facility] 11/12/23 (no cognitive issues, managed for depression and SI, no psychosis or hallucinations, history of substance use disorder, methadone, advised against klonopin and declined risperdal for anxiety. [place] ED 11/22, transferred to [facility] on 11/28/23 inpatient psychiatry. Med list shows haldol 5mg bid, methadone 40, cymbalta 60, cogentin 0.5 bid, clonidine and trazodone Presentation c/w delirium in context of KATHRYN of unknown etiology. Tox negative. Vitals not consistent with alcohol withdrawal (also in ED since 11/22-11/27, then [facility] 11/27). Uncertainty around meds administered at [facility] and impact or not ref same. Would rec: - head CT and consider neuro input - In the meantime, increase haldol to 5mg tid, stop cogentin (can worsen delirium), add olanzapine prn and ativan (monitor same for delirium, but anxiety/distress very prevalent). Past Psychiatric History: Depression, PTSD, Anxiety, methadone maintenance. Review discharge summary from [facility] 11/12/23 (no cognitive issues, managed for depression and SI, no psychosis or hallucinations, history of substance use disorder, methadone, advised against klonopin and declined risperdal for anxiety. [place] [facility] 11/22, transferred to [facility] on 11/28/23 inpatient psychiatry. Med list shows haldol 5mg bid, methadone 40, cymbalta 60, cogentin 0.5 bid, clonidine and trazodone Medical Evaluation Reviewed: Yes Review of Systems Review of Systems delirious, visual hallucinations [facility] Medical History Active substance abuse Depression HTN (hypertension) Social History: Unable to determine Diagnostics Vital Signs (24Hr): Vital Signs - 24 hr 12/01/23 21:16 12/01/23 22:56 12/02/23 00:14 Temperature 98.3 F 98.4 F 97.8 F Pulse Rate 46 L 48 L 64 Respiratory Rate 16 10 L 13 Blood Pressure 95/49 L 96/45 L 152/80 H Pulse Oximetry 96 92 98 Oxygen Delivery Method Room Air Room Air Room Air Oxygen Flow Rate 12/02/23 06:23 12/02/23 08:36 12/02/23 11:30 Temperature 97.9 F 98.3 F Pulse Rate 74 59 62 Respiratory Rate 17 17 17 Blood Pressure 119/56 L 149/73 H 158/84 H Pulse Oximetry 97 95 Oxygen Delivery Method Room Air Room Air Room Air Oxygen Flow Rate 95 BMI result Body Mass Index 26.7 Labs 12/02/23 04:35 12/02/23 04:35 Labs: Laboratory Results - last 48 hr 12/01/23 12/01/23 12/01/23 21:05 22:05 22:09 WBC 5.8 RBC 3.19 L Hgb 10.4 L Hct 29.6 L MCV 92.8 MCH 32.6 MCHC 35.1 RDW 12.4 Plt Count 213 MPV 11.3 Immature Gran % (Auto) 0.3 Neut % (Auto) 61.1 Lymph % (Auto) 21.5 [place] % (Auto) 12.7 H Eos % (Auto) 3.5 Baso % (Auto) 0.9 Lymph # (Auto) 1.2 [place] # (Auto) 0.7 Eos # (Auto) 0.2 Baso # (Auto) 0.1 Abs Immat Gran (auto) 0.02 Absolute Neuts (auto) 3.5 Absolute Nucleated RBC 0.000 Nucleated RBC % (auto) 0.0 Hold Purple Top SEE NOTE Hold Blue Top SEE NOTE VBG pH 7.44 H VBG pCO2 43 VBG pO2 59 VBG HCO3 29 H VBG O2 Saturation 89.0 VBG Base Excess 4.7 Sodium 140 Potassium 4.6 Chloride 103 Carbon Dioxide 29 Anion Gap 13 BUN 38 H Creatinine 1.82 H Estim Creat Clear Calc 31.6 Estimated GFR 37 Random Glucose 89 Lactic Acid 0.8 Calcium 9.6 Magnesium 2.4 Total Bilirubin 0.4 Direct Bilirubin 0.1 AST 14 ALT 6 Alkaline Phosphatase 41 Ammonia Total Creatine Kinase 71 Troponin I High Sens 6.5 Total Protein 6.6 Albumin 3.9 Lipase 7 L TSH 1.11 Urine Color Urine Appearance Urine pH Ur Specific [place] Urine Protein Urine Glucose (UA) Urine Ketones Urine Blood Urine Nitrite Ur Leukocyte Esterase Urine Opiates Screen Ur Buprenorphine Scrn Ur Oxycodone Screen Urine Methadone Screen Urine Fentanyl Screen Ur Barbiturates Screen Ur Phencyclidine Scrn Ur Amphetamines Screen U Benzodiazepines Scrn Urine Cocaine Screen U Marijuana (THC) Screen Ethyl Alcohol < 10 12/01/23 12/02/23 12/02/23 22:27 03:23 04:35 WBC 5.1 RBC 3.01 L Hgb 9.7 L Hct 27.8 L MCV 92.4 MCH 32.2 MCHC 34.9 RDW 12.4 Plt Count 204 MPV 11.3 Immature Gran % (Auto) Neut % (Auto) Lymph % (Auto) [place] % (Auto) Eos % (Auto) Baso % (Auto) Lymph # (Auto) [place] # (Auto) Eos # (Auto) Baso # (Auto) Abs Immat Gran (auto) Absolute Neuts (auto) Absolute Nucleated RBC 0.000 Nucleated RBC % (auto) 0.0 Hold Purple Top Hold Blue Top VBG pH VBG pCO2 VBG pO2 VBG HCO3 VBG O2 Saturation VBG Base Excess Sodium 139 Potassium 4.4 Chloride 107 Carbon Dioxide 23 Anion Gap 13 BUN 34 H Creatinine 1.43 H Estim Creat Clear Calc 40.2 Estimated GFR 49 Random Glucose 78 Lactic Acid Calcium 9.6 Magnesium Total Bilirubin Direct Bilirubin AST ALT Alkaline Phosphatase Ammonia 17 Total Creatine Kinase Troponin I High Sens Total Protein Albumin Lipase TSH Urine Color Yellow Urine Appearance Clear Urine pH 6.0 Ur Specific [place] 1.015 Urine Protein Negative Urine Glucose (UA) Negative Urine Ketones Negative Urine Blood Negative Urine Nitrite Negative Ur Leukocyte Esterase Negative Urine Opiates Screen Not Detected Ur Buprenorphine Scrn Not Detected Ur Oxycodone Screen Not Detected Urine Methadone Screen Positive H Urine Fentanyl Screen Not Detected Ur Barbiturates Screen Not Detected Ur Phencyclidine Scrn Not Detected Ur Amphetamines Screen Not Detected U Benzodiazepines Scrn Not Detected Urine Cocaine Screen Not Detected U Marijuana (THC) Screen Not Detected Ethyl Alcohol Imaging Radiology Impressions: ITS Impressions Chest X-Ray 12/01/23 21:21 IMPRESSION: No pneumonia or edema. Head CT 12/01/23 21:40 IMPRESSION: No intracranial hemorrhage or mass effect. Mild generalized atrophy and chronic small vessel white matter ischemic changes. Mental Status Exam Mental Status Exam Narrative: In room, clearly visual hallucinations, restless, distressed, difficult to make out and very poor concentration. Medications Medications Current Medications Acetaminophen (Acetaminophen 325 Mg Tablet) 650 mg PO Q6H PRN PRN Reason: Pain, Mild (Pain Scale 1-3), fever or headache Albuterol Sulfate (Albuterol Sulfate 90 Mcg 8 Gm Inhaler) 2 puff INHALE Q6H PRN PRN Reason: Wheezing Benztropine Mesylate (Benztropine Mesylate 0.5 Mg Tablet) 0.5 mg PO BID [facility] Calcium Carbonate (Calcium Carbonate 750 Mg Tab.Chew) 750 mg PO Q4H PRN PRN Reason: Heartburn Cyanocobalamin (Cyanocobalamin (Vitamin B-12) 1,000 Mcg Tablet) 2,000 mcg PO DAILY [facility] Duloxetine HCl (Duloxetine Hcl 60 Mg Capsule.Dr) 60 mg PO DAILY [facility] Enoxaparin Sodium (Enoxaparin Sodium 40 Mg/0.4 Ml Syringe) 40 mg SUBCUT Q24H [facility] Last Admin: 12/02/23 01:30 Dose: 40 mg Haloperidol (Haloperidol 5 Mg Tablet) 5 mg PO BID [facility] Magnesium Hydroxide (Milk Of Magnesia 30 Ml Oral.Susp) 30 ml PO DAILY PRN PRN Reason: Constipation Melatonin (Melatonin 3 Mg Tablet) 6 mg PO BEDTIME PRN PRN Reason: Insomnia Methadone HCl (Methadone Hcl 10 Mg Tablet) 40 mg PO DAILY [facility] Multivitamins/Vitamin C (Multivitamin Tablet) 1 tab PO DAILY [facility] Nicotine (Nicotine 21 Mg Patch.Td24) mg TRANSDERMA DAILY [facility] Non-Formulary Medication (Ferrous Sulfate) 325 mg PO BIDWM [facility] Ondansetron HCl (Ondansetron Hcl 4 Mg/2 Ml Vial) 4 mg IVPUSH Q8H PRN PRN Reason: Nausea and Vomiting Polyethylene Glycol (Polyethylene Glycol 3350 17 Gm Powd.Pack) 17 gm PO DAILY [facility] Sodium Chloride (0.9 % Sodium Chloride Flush 3 Ml Syringe) 3 ml IVFLUSH QSHIFT [facility] Last Admin: 12/02/23 07:21 Dose: Not Given Tamsulosin HCl (Tamsulosin Hcl 0.4 Mg Capsule) 0.4 mg PO BEDTIME [facility] Thiamine HCl (Thiamine Hcl 100 Mg Tablet) 100 mg PO DAILY [facility] Trazodone HCl (Trazodone Hcl 50 Mg Tablet) 50 mg PO BEDTIME PRN PRN Reason: Insomnia Allergies Allergies Allergy/AdvReac Type Severity Reaction Status Date / Time Unable to Assess Allergy Verified 12/01/23 21:18 Assessment & Plan Assessment & Plan (1) Delirium: Status: Acute Code(s): R41.0 - Disorientation, unspecified Assessment and Plan: Presentation c/w delirium in context of KATHRYN of unknown etiology. Tox negative. Vitals not consistent with alcohol withdrawal. Uncertainty around meds administered at [facility] and impact or not ref same. Would rec: - head CT and consider neuro input - In the meantime, increase haldol to 5mg tid, stop cogentin (can worsen delirium), add olanzapine prn and ativan (monitor same for delirium, but anxiety/distress very prevalent). Plan Presentation c/w delirium in context of AKTHRYN of unknown etiology. Tox negative. Vitals not consistent with alcohol withdrawal. Uncertainty around meds administered at [facility] and impact or not ref same. Would rec: - head CT and consider neuro input - In the meantime, increase haldol to 5mg tid, stop cogentin (can worsen delirium), add olanzapine prn and ativan (monitor same for delirium, but anxiety/distress very prevalent). Total time managing care of this patient today ____ minutes.
[2023-12-02] MEDS: Nicotine 21 MG PATCH.TD24 TRANSDERMA (12:52)
[2023-12-02] MEDS: Multivitamin TABLET 1 TAB PO (12:52)
[2023-12-02] MEDS: DULoxetine HCl 60 MG CAPSULE.DR PO (12:52)
[2023-12-02] MEDS: Cyanocobalamin (Vitamin B-12) 1,000 MCG TABLET 2000 MCG PO (12:52)
[2023-12-02] MEDS: HaloperidoL 5 MG TABLET PO ×3 (12:52→20:19)
[2023-12-02] MEDS: Benztropine Mesylate 0.5 MG TABLET PO (12:52)
[2023-12-02] MEDS: Thiamine HCL 100 MG TABLET PO (12:55)
[2023-12-02] MEDS: OLANZapine ODT 10 MG TAB.RAPDIS TRANSLINGU ×2 (14:25→20:25)
[2023-12-02] MEDS: Ferrous Sulfate 324 MG TABLET.DR PO (15:40)
[2023-12-02] MEDS: amLODIPine Besylate 5 MG TABLET PO (16:54)
[2023-12-02] MEDS: Tamsulosin HCL 0.4 MG CAPSULE PO (20:19)
[2023-12-03] VITALS: BP 186/80; PULSE 63; RESP 18; TEMP 36.3; O2SAT 96
[2023-12-03] MEDS: Enoxaparin Sodium 40 MG/0.4 ML SYRINGE SUBCUT (02:03)
[2023-12-03] MEDS: 0.9 % Sodium Chloride Flush 3 ML SYRINGE IVFLUSH ×3 (02:04→20:18)
[2023-12-03 04:00] VITALS: BP 138/84; PULSE 51; RESP 20; TEMP 36.1; O2SAT 93
[2023-12-03 06:52] VITALS: BP 140/77; PULSE 62; RESP 16; TEMP 36.2; O2SAT 94
[2023-12-03 07:08] LABS: Anion Gap 15 (12-20); Blood Urea Nitrogen 23 mg/dL (9-16); Calcium 9.4 mg/dL (8.4-10.2); Carbon Dioxide 24 mmol/L (22-29); Chloride 105 mmol/L (96-108); Creatinine Clr Calc Pharmacy 51.8; Estimated Glomerular Filt Rate > 60; Glucose Random 74 mg/dL (60-115); Potassium 3.7 mmol/L (3.3-5.1); Sodium 140 mmol/L (135-145)
[2023-12-03 07:52] LABS: Alanine Aminotransferase 6 U/L (0-40); Albumin Level 3.6 g/dL (3.5-5.0); Alkaline Phosphatase 38 U/L (39-117); Aspartate Amino Transferase 17 U/L (5-37); Bilirubin Direct 0.2 mg/dL (0.0-0.5); Total Protein 6.2 g/dL (6.5-8.0)
[2023-12-03 07:55] LABS: Bilirubin Total 0.7 mg/dL (0.0-1.0)
[2023-12-03] MEDS: amLODIPine Besylate 5 MG TABLET PO (09:19)
[2023-12-03] MEDS: Cyanocobalamin (Vitamin B-12) 1,000 MCG TABLET 2000 MCG PO (09:19)
[2023-12-03] MEDS: Multivitamin TABLET 1 TAB PO (09:19)
[2023-12-03] MEDS: Thiamine HCL 100 MG TABLET PO (09:19)
[2023-12-03] MEDS: Ferrous Sulfate 324 MG TABLET.DR PO ×2 (09:19→15:24)
[2023-12-03] MEDS: DULoxetine HCl 60 MG CAPSULE.DR PO (09:19)
[2023-12-03] MEDS: Nicotine 21 MG PATCH.TD24 TRANSDERMA (09:22)
[2023-12-03] MEDS: methADONE HCl 20 MG/2 ML ORAL.CONC 40 MG PO (10:15)
[2023-12-03 11:43] VITALS: BP 154/92; PULSE 50; RESP 18; TEMP 36.8; O2SAT 95
--- NOTE | 2023-12-03 12:31 | MHC.CM.PN ---
Per rounds, pt is not ready to DC, CARE team to eval when pt. is medically cleared for psych treatment.
--- NOTE | 2023-12-03 13:59 | P.PNIM_ITS ---
Subjective Subjective Date of Service: 12/04/23 Interval History: Patient is doing much better, no agitation, he is alert and oriented to self, time and thought he was at [facility] where he came from renal function back to normal. There is still a sitter Physical Exam 2 Vital Signs: Vital Signs: Last Vital Signs Temp 98.3 F 12/03/23 11:43 Pulse 50 12/03/23 11:43 Resp 18 12/03/23 11:43 BP 154/92 H 12/03/23 11:43 Pulse Ox 95 12/03/23 11:43 O2 Del Method Room Air 12/03/23 11:43 O2 Flow Rate 95 12/02/23 08:36 BMI result Body Mass Index 26.7 General: AO X 3, no acute distress Resp: CTA bilateral CVS: S1,S2,RRR GI: +BS, NT, no distention Skin: No rash Neuro: motor grossly intact Psych: appropriate affect Objective Data Active Medications Acetaminophen (Acetaminophen 325 Mg Tablet) 650 mg PO Q6H PRN PRN Reason: Pain, Mild (Pain Scale 1-3), fever or headache Albuterol Sulfate (Albuterol Sulfate 90 Mcg 8 Gm Inhaler) 2 puff INHALE Q6H PRN PRN Reason: Wheezing Amlodipine Besylate (Amlodipine Besylate 5 Mg Tablet) 5 mg PO DAILY [facility]; Protocol Last Admin: 12/03/23 09:19 Dose: 5 mg Documented By: KEENA Calcium Carbonate (Calcium Carbonate 750 Mg Tab.Chew) 750 mg PO Q4H PRN PRN Reason: Heartburn Cyanocobalamin (Cyanocobalamin (Vitamin B-12) 1,000 Mcg Tablet) 2,000 mcg PO DAILY [facility] Last Admin: 12/03/23 09:19 Dose: 2,000 mcg Documented By: KEENA Duloxetine HCl (Duloxetine Hcl 60 Mg Capsule.) 60 mg PO DAILY [facility] Last Admin: 12/03/23 09:19 Dose: 60 mg Documented By: KEENA Enoxaparin Sodium (Enoxaparin Sodium 40 Mg/0.4 Ml Syringe) 40 mg SUBCUT Q24H [facility] Last Admin: 12/03/23 02:03 Dose: 40 mg Documented By: JASON Ferrous Sulfate (Ferrous Sulfate 324 Mg Tablet.) 324 mg PO BIDWM [facility] Last Admin: 12/03/23 09:19 Dose: 324 mg Documented By: KEENA Haloperidol (Haloperidol 5 Mg Tablet) 5 mg PO TID [facility] Last Admin: 12/03/23 10:13 Dose: Not Given Documented By: KEENA Non-Admin Reason: patient too drowsy Lorazepam (Lorazepam 1 Mg Tablet) 1 mg PO Q4H PRN PRN Reason: Anxiety Magnesium Hydroxide (Milk Of Magnesia 30 Ml Oral.Susp) 30 ml PO DAILY PRN PRN Reason: Constipation Melatonin (Melatonin 3 Mg Tablet) 6 mg PO BEDTIME PRN PRN Reason: Insomnia Methadone HCl (Methadone Hcl 20 Mg/2 Ml Oral.Conc) 40 mg PO DAILY [facility] Last Admin: 12/03/23 10:15 Dose: 40 mg Documented By: KEENA Multivitamins/Vitamin C (Multivitamin Tablet) 1 tab PO DAILY [facility] Last Admin: 12/03/23 09:19 Dose: 1 tab Documented By: KEENA Nicotine (Nicotine 21 Mg Patch.Td24) 21 mg TRANSDERMA DAILY [facility] Last Admin: 12/03/23 09:22 Dose: 21 mg Documented By: KEENA Olanzapine (Olanzapine Odt 10 Mg Tab.Rapdis) 10 mg TRANSLINGU Q6H PRN PRN Reason: severe agitation/psychosis Last Admin: 12/02/23 20:25 Dose: 10 mg Documented By: JASON Ondansetron HCl (Ondansetron Hcl 4 Mg/2 Ml Vial) 4 mg IVPUSH Q8H PRN PRN Reason: Nausea and Vomiting Polyethylene Glycol (Polyethylene Glycol 3350 17 Gm Powd.Pack) 17 gm PO DAILY [facility] Last Admin: 12/03/23 09:30 Dose: Not Given Documented By: KEENA Non-Admin Reason: Patient Refused Sodium Chloride (0.9 % Sodium Chloride Flush 3 Ml Syringe) 3 ml IVFLUSH QSHIFT [facility] Last Admin: 12/03/23 09:20 Dose: 3 ml Documented By: KEENA Tamsulosin HCl (Tamsulosin Hcl 0.4 Mg Capsule) 0.4 mg PO BEDTIME [facility] Last Admin: 12/02/23 20:19 Dose: 0.4 mg Documented By: JASON Thiamine HCl (Thiamine Hcl 100 Mg Tablet) 100 mg PO DAILY [facility] Last Admin: 12/03/23 09:19 Dose: 100 mg Documented By: KEENA Trazodone HCl (Trazodone Hcl 50 Mg Tablet) 50 mg PO BEDTIME PRN PRN Reason: Insomnia Labs 12/02/23 04:35 12/03/23 05:43 Labs: Laboratory Results - last 24 hr 12/03/23 05:43 Anion Gap 15 Estim Creat Clear Calc 51.8 Estimated GFR > 60 Random Glucose 74 Calcium 9.4 Total Bilirubin 0.7 Direct Bilirubin 0.2 AST 17 ALT 6 Alkaline Phosphatase 38 L Total Protein 6.2 L Albumin 3.6 Assessment and Plan (1) Bradycardia: Status: Acute (2) Hypotension: Status: Acute (3) KATHRYN (acute kidney injury): Status: Acute (4) Altered mental status: Status: Acute Plan 68-year-old male with pertinent history of mood disorder, hypertension, alcohol use disorder, BPH who was sent to the emergency department from [facility] for evaluation of low blood pressure and low heart rate, he is actively Psychotic Hypotension and bradycardia, no sepsis, there is possibily of med error at outside facility. BP is back to normal, no bradycardia -BP meds have been on hold KATHRYN--likely related to Hypotension, renal function is is back to normal Acute Psychosis--continue meds as recommended by Psych and hold with excessive sedation Mood disorder with suicidal ideation: as above BPH: On Flomax Hypertension: BP is on now high (on Losartan and clonidine), lasix... Hold Loartan, start Norvasc 5 and adjust as needed, restart losartan at later time if BP ok Opioid dependence--on methadone Bradycardia--likely d/t metoprolol (not on med rec but at outpatient pharmacy) and clonidine--HR 50s, hold clonidine Alcohol use disorder: On thiamine, presenation unlikely from etoh as has been in hospital setting since november 22 DVT prophylaxis: Lovenox Full code Admit as inpatient and will require two night minimum hospital stay for monitoring of kidney function, hemodynamic monitoring (as above), which is not possible in a lesser acute setting. Quality Stroke Does the patient have a stroke diagnosis?: No VTE Prior VTE?: No VTE Risk Level:: Medical - moderate - high VTE Device Contraindication: Treatment Not Indicated VTE Drug Contraindication: N/A - Med Ordered
[2023-12-03 15:38] VITALS: BP 172/94; PULSE 52; RESP 18; TEMP 36.1; O2SAT 96
[2023-12-03] MEDS: Acetaminophen 325 MG TABLET 650 MG PO (15:43)
[2023-12-03 19:20] VITALS: BP 126/63; PULSE 59; RESP 18; TEMP 36.4; O2SAT 93
[2023-12-03] MEDS: HaloperidoL 5 MG TABLET PO (20:17)
[2023-12-03] MEDS: Tamsulosin HCL 0.4 MG CAPSULE PO (20:17)
[2023-12-04] VITALS: BP 160/89; PULSE 51; RESP 19; TEMP 36.3
[2023-12-04] MEDS: Enoxaparin Sodium 40 MG/0.4 ML SYRINGE SUBCUT (03:33)
[2023-12-04 03:42] VITALS: BP 155/65; PULSE 50; RESP 18; TEMP 36.6
[2023-12-04 07:23] VITALS: BP 159/93; PULSE 52; RESP 16; TEMP 36.1; O2SAT 96
[2023-12-04] MEDS: Thiamine HCL 100 MG TABLET PO (09:07)
[2023-12-04] MEDS: Cyanocobalamin (Vitamin B-12) 1,000 MCG TABLET 2000 MCG PO (09:07)
[2023-12-04] MEDS: Multivitamin TABLET 1 TAB PO (09:07)
[2023-12-04] MEDS: DULoxetine HCl 60 MG CAPSULE.DR PO (09:07)
[2023-12-04] MEDS: Ferrous Sulfate 324 MG TABLET.DR PO ×2 (09:07→17:21)
[2023-12-04] MEDS: methADONE HCl 20 MG/2 ML ORAL.CONC 40 MG PO (09:07)
[2023-12-04] MEDS: Nicotine 21 MG PATCH.TD24 TRANSDERMA (09:08)
[2023-12-04] MEDS: amLODIPine Besylate 5 MG TABLET PO ×2 (09:15→13:46)
[2023-12-04] MEDS: 0.9 % Sodium Chloride Flush 3 ML SYRINGE IVFLUSH ×2 (09:16→17:23)
[2023-12-04 10:43] VITALS: BP 176/90; PULSE 57; RESP 20; TEMP 36.5; O2SAT 94
--- NOTE | 2023-12-04 13:30 | HO.PM.IMPN ---
Subjective Subjective Date of Service: 12/04/23 Interval History: Patient is doing much better, no agitation, he is alert and oriented to self, time and now aware of being at [facility] BP is on high side. Cooperative, still with SI Physical Exam Vital Signs: Vital Signs: Last Vital Signs Temp 97.7 F 12/04/23 10:43 Pulse 57 12/04/23 10:43 Resp 20 12/04/23 10:43 BP 176/90 H 12/04/23 10:43 Pulse Ox 94 12/04/23 10:43 O2 Del Method Room Air 12/04/23 10:43 O2 Flow Rate 91 12/04/23 00:00 FiO2 93 12/04/23 03:42 BMI result Body Mass Index 26.7 General: AO X 3, no acute distress Resp: CTA bilateral CVS: S1,S2,RRR GI: +BS, NT, no distention Skin: No rash Neuro: motor grossly intact Psych: appropriate affect Objective Data Active Medications Acetaminophen (Acetaminophen 325 Mg Tablet) 650 mg PO Q6H PRN PRN Reason: Pain, Mild (Pain Scale 1-3), fever or headache Last Admin: 12/03/23 15:43 Dose: 650 mg Documented By: KEENA Albuterol Sulfate (Albuterol Sulfate 90 Mcg 8 Gm Inhaler) 2 puff INHALE Q6H PRN PRN Reason: Wheezing Amlodipine Besylate (Amlodipine Besylate 10 Mg Tablet) 10 mg PO DAILY [facility]; Protocol Calcium Carbonate (Calcium Carbonate 750 Mg Tab.Chew) 750 mg PO Q4H PRN PRN Reason: Heartburn Cyanocobalamin (Cyanocobalamin (Vitamin B-12) 1,000 Mcg Tablet) 2,000 mcg PO DAILY [facility] Last Admin: 12/04/23 09:07 Dose: 2,000 mcg Documented By: KEENA Duloxetine HCl (Duloxetine Hcl 60 Mg Capsule.) 60 mg PO DAILY [facility] Last Admin: 12/04/23 09:07 Dose: 60 mg Documented By: KEENA Enoxaparin Sodium (Enoxaparin Sodium 40 Mg/0.4 Ml Syringe) 40 mg SUBCUT Q24H [facility] Last Admin: 12/04/23 03:33 Dose: 40 mg Documented By: JASON Ferrous Sulfate (Ferrous Sulfate 324 Mg Tablet.) 324 mg PO BIDWM [facility] Last Admin: 12/04/23 09:07 Dose: 324 mg Documented By: KEENA Haloperidol (Haloperidol 5 Mg Tablet) 5 mg PO TID [facility] Last Admin: 12/04/23 09:15 Dose: Not Given Documented By: KEENA Non-Admin Reason: Patient Refused Lorazepam (Lorazepam 1 Mg Tablet) 1 mg PO Q4H PRN PRN Reason: Anxiety Magnesium Hydroxide (Milk Of Magnesia 30 Ml Oral.Susp) 30 ml PO DAILY PRN PRN Reason: Constipation Melatonin (Melatonin 3 Mg Tablet) 6 mg PO BEDTIME PRN PRN Reason: Insomnia Methadone HCl (Methadone Hcl 20 Mg/2 Ml Oral.Conc) 40 mg PO DAILY [facility] Last Admin: 12/04/23 09:07 Dose: 40 mg Documented By: KEENA Multivitamins/Vitamin C (Multivitamin Tablet) 1 tab PO DAILY [facility] Last Admin: 12/04/23 09:07 Dose: 1 tab Documented By: KEENA Nicotine (Nicotine 21 Mg Patch.Td24) 21 mg TRANSDERMA DAILY [facility] Last Admin: 12/04/23 09:08 Dose: 21 mg Documented By: KEENA Olanzapine (Olanzapine Odt 10 Mg Tab.Rapdis) 10 mg TRANSLINGU Q6H PRN PRN Reason: severe agitation/psychosis Last Admin: 12/02/23 20:25 Dose: 10 mg Documented By: JASON Ondansetron HCl (Ondansetron Hcl 4 Mg/2 Ml Vial) 4 mg IVPUSH Q8H PRN PRN Reason: Nausea and Vomiting Polyethylene Glycol (Polyethylene Glycol 3350 17 Gm Powd.Pack) 17 gm PO DAILY [facility] Last Admin: 12/04/23 09:19 Dose: Not Given Documented By: KEENA Non-Admin Reason: Patient Refused Sodium Chloride (0.9 % Sodium Chloride Flush 3 Ml Syringe) 3 ml IVFLUSH QSHIFT [facility] Last Admin: 12/04/23 09:16 Dose: 3 ml Documented By: KEENA Tamsulosin HCl (Tamsulosin Hcl 0.4 Mg Capsule) 0.4 mg PO BEDTIME [facility] Last Admin: 12/03/23 20:17 Dose: 0.4 mg Documented By: JASON Thiamine HCl (Thiamine Hcl 100 Mg Tablet) 100 mg PO DAILY [facility] Last Admin: 12/04/23 09:07 Dose: 100 mg Documented By: KEENA Trazodone HCl (Trazodone Hcl 50 Mg Tablet) 50 mg PO BEDTIME PRN PRN Reason: Insomnia Labs 12/02/23 04:35 12/03/23 05:43 Assessment and Plan (1) Bradycardia: Status: Acute (2) Hypotension: Status: Acute (3) KATHRYN (acute kidney injury): Status: Acute (4) Altered mental status: Status: Acute Plan 68-year-old male with pertinent history of mood disorder, hypertension, alcohol use disorder, BPH who was sent to the emergency department from [facility] for evaluation of low blood pressure and low heart rate, he is actively Psychotic Hypotension and bradycardia, no sepsis, there is possibily of med error at outside facility. BP is back to normal, no bradycardia -BP meds have been on hold KATHRYN--likely related to Hypotension, renal function is is back to normal Acute Psychosis--continue meds as recommended by Psych and hold with excessive sedation Mood disorder with suicidal ideation: as above BPH: On Flomax Hypertension: BP is on now high (on Losartan and clonidine), lasix... Hold Loartan, start Norvasc 5 and adjust as needed, restart losartan at later time if BP ok Opioid dependence--on methadone,addiction med consult Bradycardia--likely d/t metoprolol (not on med rec but at outpatient pharmacy) and clonidine--HR 50s, hold clonidine Alcohol use disorder: On thiamine, presenation unlikely from etoh as has been in hospital setting since november 22 DVT prophylaxis: Rachelnox Full code Admit as inpatient and will require two night minimum hospital stay for monitoring of kidney function, hemodynamic monitoring (as above), which is not possible in a lesser acute setting. Quality Stroke Does the patient have a stroke diagnosis?: No VTE Prior VTE?: No VTE Risk Level:: Medical - moderate - high VTE Device Contraindication: Treatment Not Indicated VTE Drug Contraindication: N/A - Med Ordered
[2023-12-04] MEDS: Losartan Potassium 25 MG TABLET PO (13:45)
--- NOTE | 2023-12-04 15:07 | MHC.CM.PN ---
CM received info today that pt. was receiving services from [facility], behavioral health, prior to going to [facility]. The rep from [facility] informed CM that pt. has no supports, [place].
[2023-12-04 15:57] VITALS: BP 189/88; PULSE 70; RESP 16; TEMP 36.1; O2SAT 91
--- NOTE | 2023-12-04 16:01 | HO.ADDICT_ITS ---
History of Present Illness Date of Service: 12/04/2023 Chief Complaint: hypotension Reason for Consult: methadone titration Sources of Information: patient interviewed and chart reviewed HPI Narrative: Patient is a 68 year old male medically admitted with AMS from [facility] Consult requested to evaluate for methadone dose titration per patient request - dose currently at 40mg daily Patient seen in room 477. He was awake, alert, pleasant and engaged in interview. He reports he was started on methadone approx a week or so ago via [facility]. He is reporting worsening cravings for opiates and anxiety associated with that. Patient states that he was prescribed oxycodone for 27 years up until 8 months ago when his prescription was d/c due to cocaine use. [facility] reviewed, last Oxycodone rx in September 2022. Per [facility], patient was prescribed Suboxone from September to April 2023. He states that he started buying pressed pills in the street. Reports an overdose 2 weeks ago requiring narcan Reports many years ago used heroin. Does report ATS admissions Denies alcohol use Past Psychiatric History: Depression, PTSD, Anxiety, methadone maintenance. Review discharge summary from psychiatry [facility] 11/12/23 (no cognitive issues, managed for depression and SI, no psychosis or hallucinations, history of substance use disorder, methadone, advised against klonopin and declined risperdal for anxiety. [place] ED 11/22, transferred to [facility] on 11/28/23 inpatient psychiatry. Med list shows haldol 5mg bid, methadone 40, cymbalta 60, cogentin 0.5 bid, clonidine and trazodone Review of Systems Constitutional: Reports as per HPI Diagnostics Vital Signs (24Hr): Vital Signs - 24 hr 12/03/23 19:20 12/04/23 00:00 12/04/23 03:42 Temperature 97.6 F 97.4 F 97.8 F Pulse Rate 59 51 50 Respiratory Rate 18 19 18 Blood Pressure 126/63 160/89 H 155/65 H Pulse Oximetry 93 Oxygen Delivery Method Room Air Room Air Room Air Oxygen Flow Rate 91 Fraction of Inspired Oxygen 93 12/04/23 07:23 12/04/23 10:43 12/04/23 15:57 Temperature 96.9 F 97.7 F 96.9 F Pulse Rate 52 57 70 Respiratory Rate 16 20 16 Blood Pressure 159/93 H 176/90 H 189/88 H Pulse Oximetry 96 94 91 L Oxygen Delivery Method Room Air Room Air Room Air Oxygen Flow Rate Fraction of Inspired Oxygen BMI result Body Mass Index 26.7 Labs 12/02/23 04:35 12/03/23 05:43 Labs: Laboratory Results - last 48 hr 12/03/23 05:43 Sodium 140 Potassium 3.7 Chloride 105 Carbon Dioxide 24 Anion Gap 15 BUN 23 H Creatinine 1.11 Estim Creat Clear Calc 51.8 Estimated GFR > 60 Random Glucose 74 Calcium 9.4 Total Bilirubin 0.7 Direct Bilirubin 0.2 AST 17 ALT 6 Alkaline Phosphatase 38 L Total Protein 6.2 L Albumin 3.6 Imaging Radiology Impressions: ITS Impressions Chest X-Ray 12/01/23 21:21 IMPRESSION: No pneumonia or edema. Head CT 12/01/23 21:40 IMPRESSION: No intracranial hemorrhage or mass effect. Mild generalized atrophy and chronic small vessel white matter ischemic changes. Mental Status Exam Mental Status Exam Patient Appearance: Appropriate Level of Consciousness: Awake, Appropriate and Alert Patient Behavior: Appropriate and Talkative Affect Description: Appropriate and Anxious Medications Medications Current Medications Acetaminophen (Acetaminophen 325 Mg Tablet) 650 mg PO Q6H PRN PRN Reason: Pain, Mild (Pain Scale 1-3), fever or headache Last Admin: 12/03/23 15:43 Dose: 650 mg Albuterol Sulfate (Albuterol Sulfate 90 Mcg 8 Gm Inhaler) 2 puff INHALE Q6H PRN PRN Reason: Wheezing Amlodipine Besylate (Amlodipine Besylate 10 Mg Tablet) 10 mg PO DAILY [facility]; Protocol Calcium Carbonate (Calcium Carbonate 750 Mg Tab.Chew) 750 mg PO Q4H PRN PRN Reason: Heartburn Cyanocobalamin (Cyanocobalamin (Vitamin B-12) 1,000 Mcg Tablet) 2,000 mcg PO DAILY [facility] Last Admin: 12/04/23 09:07 Dose: 2,000 mcg Duloxetine HCl (Duloxetine Hcl 60 Mg Capsule.) 60 mg PO DAILY [facility] Last Admin: 12/04/23 09:07 Dose: 60 mg Enoxaparin Sodium (Enoxaparin Sodium 40 Mg/0.4 Ml Syringe) 40 mg SUBCUT Q24H [facility] Last Admin: 12/04/23 03:33 Dose: 40 mg Ferrous Sulfate (Ferrous Sulfate 324 Mg Tablet.) 324 mg PO BIDWM [facility] Last Admin: 12/04/23 09:07 Dose: 324 mg Haloperidol (Haloperidol 5 Mg Tablet) 5 mg PO TID [facility] Last Admin: 12/04/23 09:15 Dose: Not Given Lorazepam (Lorazepam 1 Mg Tablet) 1 mg PO Q4H PRN PRN Reason: Anxiety Losartan Potassium (Losartan Potassium 25 Mg Tablet) 25 mg PO DAILY [facility]; Protocol Last Admin: 12/04/23 13:45 Dose: 25 mg Magnesium Hydroxide (Milk Of Magnesia 30 Ml Oral.Susp) 30 ml PO DAILY PRN PRN Reason: Constipation Melatonin (Melatonin 3 Mg Tablet) 6 mg PO BEDTIME PRN PRN Reason: Insomnia Methadone HCl (Methadone Hcl 20 Mg/2 Ml Oral.Conc) 45 mg PO DAILY [facility] Multivitamins/Vitamin C (Multivitamin Tablet) 1 tab PO DAILY [facility] Last Admin: 12/04/23 09:07 Dose: 1 tab Nicotine (Nicotine 21 Mg Patch.Td24) 21 mg TRANSDERMA DAILY [facility] Last Admin: 12/04/23 09:08 Dose: 21 mg Olanzapine (Olanzapine Odt 10 Mg Tab.Rapdis) 10 mg TRANSLINGU Q6H PRN PRN Reason: severe agitation/psychosis Last Admin: 12/02/23 20:25 Dose: 10 mg Ondansetron HCl (Ondansetron Hcl 4 Mg/2 Ml Vial) 4 mg IVPUSH Q8H PRN PRN Reason: Nausea and Vomiting Polyethylene Glycol (Polyethylene Glycol 3350 17 Gm Powd.Pack) 17 gm PO DAILY [facility] Last Admin: 12/04/23 09:19 Dose: Not Given Sodium Chloride (0.9 % Sodium Chloride Flush 3 Ml Syringe) 3 ml IVFLUSH QSHIFT [facility] Last Admin: 12/04/23 09:16 Dose: 3 ml Tamsulosin HCl (Tamsulosin Hcl 0.4 Mg Capsule) 0.4 mg PO BEDTIME [facility] Last Admin: 12/03/23 20:17 Dose: 0.4 mg Thiamine HCl (Thiamine Hcl 100 Mg Tablet) 100 mg PO DAILY [facility] Last Admin: 12/04/23 09:07 Dose: 100 mg Trazodone HCl (Trazodone Hcl 50 Mg Tablet) 50 mg PO BEDTIME PRN PRN Reason: Insomnia Allergies Allergies Allergy/AdvReac Type Severity Reaction Status Date / Time Unable to Assess Allergy Verified 12/01/23 21:18 Assessment & Plan Assessment & Plan (1) Opioid use disorder: Status: Acute Code(s): F11.90 - Opioid use, unspecified, uncomplicated Assessment and Plan: * methadone 5mg x1 now * methadone morning dose increased to 45mg daily * already connected to [facility], needs last dose letter and take home narcan at discharge Total time managing care of this patient today __40__ minutes. PMFSH Past Medical History Medical History Active substance abuse Depression HTN (hypertension) Social History Social History Household Members: Unknown / Unable to assess Housing: Unknown / Unable to assess Comment: sitter Patient Tobacco Use Status: Tobacco use Unknown service: No
[2023-12-04] MEDS: methADONE HCl 20 MG/2 ML ORAL.CONC 5 MG PO (17:21)
--- NOTE | 2023-12-04 19:34 | MHC.CARE ---
CARE Team evaluation complete. Pt is a geriatric bedsearch. Pt is aware and is agreeable to treatment plan. Plan was discussed with Pt's provider.
[2023-12-04 19:39] VITALS: BP 145/65; PULSE 87; RESP 20; TEMP 36.1; O2SAT 94
--- NOTE | 2023-12-04 20:50 | MHC.CARE ---
Initial clinical presented to Pt's insurance [employer]. Spoke with Janell who requests clinical is presented every 24 hours and when Pt secures bed placement. Evaluation was faxed.
[2023-12-04] MEDS: HaloperidoL 5 MG TABLET PO (21:29)
[2023-12-04] MEDS: Tamsulosin HCL 0.4 MG CAPSULE PO (21:29)
[2023-12-04] MEDS: LORazepam 1 MG TABLET PO (21:46)
--- NOTE | 2023-12-04 22:45 | MHC.CARE ---
RAD Team conducted a [place] bed search for this pt. No beds were available. Bed search is exhausted for tonight. Faxed to [facility].
[2023-12-05] VITALS: BP 124/71; PULSE 73; RESP 19; TEMP 36.8; O2SAT 90
--- NOTE | 2023-12-05 | ECG_ITS ---
Test Reason : Bradycardia Blood Pressure : / mmHG Vent. Rate : 053 BPM Atrial Rate : 053 BPM P-R Int : 164 ms QRS Dur : 090 ms QT Int : 508 ms P-R-T Axes : 024 015 032 degrees QTc Int : 476 ms Sinus bradycardia Otherwise normal ECG When compared with ECG of 02-DEC-2023 12:24, Premature atrial complexes are no longer Present Referred By: [facility] Electronically Signed By:ESHA ARMENDARIZ
[2023-12-05] MEDS: 0.9 % Sodium Chloride Flush 3 ML SYRINGE IVFLUSH ×3 (00:40→16:33)
[2023-12-05] MEDS: Enoxaparin Sodium 40 MG/0.4 ML SYRINGE SUBCUT (00:42)
[2023-12-05 03:52] VITALS: BP 129/72; PULSE 56; RESP 19; TEMP 36.9; O2SAT 93
[2023-12-05 06:31] LABS: Anion Gap 12 (12-20); Blood Urea Nitrogen 25 mg/dL (9-16); Calcium 9.4 mg/dL (8.4-10.2); Carbon Dioxide 27 mmol/L (22-29); Chloride 104 mmol/L (96-108); Creatinine Clr Calc Pharmacy 46.4; Estimated Glomerular Filt Rate 58; Glucose Random 97 mg/dL (60-115); Potassium 4.3 mmol/L (3.3-5.1); Sodium 139 mmol/L (135-145)
[2023-12-05 07:05] VITALS: BP 142/84; PULSE 55; RESP 18; TEMP 36.1; O2SAT 96
[2023-12-05] MEDS: amLODIPine Besylate 10 MG TABLET PO (08:39)
[2023-12-05] MEDS: Losartan Potassium 25 MG TABLET PO (08:40)
[2023-12-05] MEDS: Ferrous Sulfate 324 MG TABLET.DR PO ×2 (08:40→16:31)
[2023-12-05] MEDS: Thiamine HCL 100 MG TABLET PO (08:40)
[2023-12-05] MEDS: DULoxetine HCl 60 MG CAPSULE.DR PO (08:40)
[2023-12-05] MEDS: Nicotine 21 MG PATCH.TD24 TRANSDERMA (08:40)
[2023-12-05] MEDS: Cyanocobalamin (Vitamin B-12) 1,000 MCG TABLET 2000 MCG PO (08:40)
[2023-12-05] MEDS: Multivitamin TABLET 1 TAB PO (08:40)
[2023-12-05] MEDS: methADONE HCl 20 MG/2 ML ORAL.CONC 45 MG PO (08:41)
--- NOTE | 2023-12-05 09:04 | MHC.CARE ---
Patient has been accepted to [facility] for today located @ [address] [place] [address] [phone] . Accepting Physician is Dr. Lenhco Covington. ETA 3pm. Med floor is booking transport now.
--- NOTE | 2023-12-05 09:57 | MHC.CM.PN ---
Pt has been medically cleared, he will transfer today to [facility] via [facility]
--- NOTE | 2023-12-05 10:35 | PM.DS ---
DS: Providers Provider Date of Service: 12/05/23 Date of admission: 12/02/23 00:16 Primary care physician: Unknown Physician Consults: 12/02/23 00:50 Consult for Sitter Routine Reason for consultation: SI Consult to Psychiatry Routine Consulting Provider: Psych Covering Reason for consultation: SI 12/02/23 09:25 Consult to Psychiatry Routine Consulting Provider: Psych Covering Reason for consultation: psychosis with behavioral issues 12/04/23 07:12 Consult to Care Team Routine Comment: Reason for consultation: Psychosis, medically ready to discharge, came from [facility] 12/04/23 12:32 Addiction Medicine Routine Consulting Provider: Addiction Covering Reason for consultation: on methadone and wants more DS: Diagnosis Discharge Diagnosis (1) Opioid use disorder: Status: Acute DS: Summary Hospital Course Hospital Course: admission hpi Chief Complaint: Fatigue and hypotension This is a 68-year-old male with pertinent history of mood disorder, hypertension, alcohol use disorder, BPH who was sent to the emergency department from [facility] for evaluation of low blood pressure and low heart rate. Patient was at [facility] for inability to take care of himself and suicidal ideation. Patient apparently was given his nighttime meds and soon after started having low BP and low heart rate. Patient was also found to be lethargic and tired. He is unable to provide history and does not know why he is in the hospital. EMS question medication error but staff at [facility] was not able to provide information. He denies any complaints at the time of my evaluation. Unable to obtain review of systems. In the emergency department, heart rate and blood pressure improved with IV fluids, atropine, calcium gluconate and glucagon. He was found to have KATHRYN with creatinine 1.8 Hospital course: 68-year-old male with pertinent history of mood disorder, hypertension, alcohol use disorder, BPH who was sent to the emergency department from [facility] for evaluation of low blood pressure and low heart rate, and was very confused with agitation. He was admitted to to [facility] for inability to take care of himself and suicidal ideation, he reportedly became lethargic, weak shortly after receiving nightime meds. He was found be hypotensive and bradycardic prompting evaluation in the emergency Department where he was noted to have KATHRYN. Hypotension likely related to medication.Patient was rather confused and very agitated when he came in. Hypotension and bradycardia, no sepsis, Unknown what exactly happened but the possibility of med error not excluded. BP meds including Losartan and Clonidine were stopped and He was given IVF with rapid improvement in his blood pressures and ultimatly and eventually becoming hypertensive. KATHRYN--likely related to Hypotension and renal hypoperfusion. his Creatine flutuates between 1.1 and 1.2, last creatine at [facility] on 11/22 prior to discharge was 1.28, he presented with creatine of 1.82 and after holding medications (lasix, losartan, clonidine and metoprolol) it went down the next day to 1.43 and then to 1.11 and presently 1.19. I will continue to hold lasix, stop Losartan an and clonidine. He has been given Norvasc for HTN Hypertension: BP is on now high (on Losartan and clonidine), lasix... Hold Losartan. Started on Norvasc now adjusted to 10 mg daily with good blood pressure control, would avoid clonidine indifinately due to tendency for hypotension and bradycardia. ACEi and ARB should be reassess at later time as can also be contributing to renal failure Acute Psychosis--His usual medication were continued, but Psychiatry adjusted Haldol from 5 mg bid to tid with good effect. PRN 1 mag Ativan was added, at every 4 hours, now adjusted to every 6 hours. BPH: On Flomax Opioid dependence--Addiction med saw him and adjusted Methadone from 40 mg to 45 mg daily Bradycardia--Bradycardia, he has underlying chronic bradycardia with HR mostly in 50s but has occasionally dropped to 40s without any sinus pauses, again beta duane such as metoprolol, atenolol, Coreg should be avoided along with Clonidine. Alcohol use disorder: On thiamine, presenation unlikely from etoh as has been in hospital setting since november 22 Time Attestation Discharge Coordination Time (in mins): 40 Quality: Safe Use of Opioids Does Pt have an Active Cancer Diagnosis on the Problem List?: No Quality: Stroke Does the patient have a stroke diagnosis?: No Physical Exam Vital Signs: Vital Signs: Last Vital Signs Temp 97.0 F 12/05/23 07:05 Pulse 55 12/05/23 07:05 Resp 18 12/05/23 07:05 BP 142/84 H 12/05/23 07:05 Pulse Ox 96 12/05/23 07:05 O2 Del Method Room Air 12/05/23 07:05 O2 Flow Rate 91 12/04/23 00:00 FiO2 93 12/04/23 03:42 BMI result Body Mass Index 26.7 DS: Data Data Completed and Pending Labs on day of discharge: Laboratory Results - last 24 hr 12/05/23 06:00 Hold Purple Top SEE NOTE Sodium 139 Potassium 4.3 Chloride 104 Carbon Dioxide 27 Anion Gap 12 BUN 25 H Creatinine 1.24 Estim Creat Clear Calc 46.4 Estimated GFR 58 Random Glucose 97 Calcium 9.4 Discharge Plan Discharge Anticipated Discharge Date/Time: 12/05/23 10:30 Patient Disposition: Xfer Psychiatric Hosp Discharge Diagnosis: Hypotension, delirium, bradycardia, KATHRYN, depression Referrals: Physician,Unknown J [Primary Care Provider] - 1 Week Discharge Medications: New amlodipine 10 mg Tablet 10 mg PO DAILY Qty: 30 0RF Protocol: Hold for SBP< HOLD for SBP < : 90 lorazepam 1 mg Tablet 1 mg PO Q6H PRN (Reason: Anxiety) Qty: 30 0RF methadone [Methadose] 10 mg/mL Concentrate 45 mg PO DAILY Qty: 30 0RF Rx Instructions: Partial Fill upon patient request. Continued multivitamin Tablet 1 tab PO DAILY acetaminophen 325 mg Tablet 650 mg PO Q6H PRN (Reason: Pain) benztropine 0.5 mg Tablet 0.5 mg PO BID trazodone 50 mg tablet 50 mg PO BEDTIME PRN (Reason: Insomnia) cyanocobalamin (vitamin B-12) 1,000 mcg Tablet 2,000 mcg PO DAILY tamsulosin 0.4 mg capsule 0.4 mg PO BEDTIME nicotine 21 mg/24 hr patch 24 hour 1 patch topical DAILY albuterol sulfate 90 mcg/actuation Hfa Aerosol Inhaler 2 puff INHALATION Q6H PRN (Reason: Wheezing) ferrous sulfate 325 mg (65 mg iron) tablet,delayed release (DR/EC) 325 mg PO BIDWM duloxetine 60 mg capsule,delayed release(DR/EC) 60 mg PO DAILY thiamine mononitrate (vit B1) 100 mg tablet 100 mg PO DAILY polyethylene glycol 3350 [Miralax] 17 gram/dose Powder 17 g PO DAILY Changed haloperidol 5 mg Tablet 5 mg PO TID Qty: 90 0RF Discontinued clonidine HCl 0.1 mg tablet 0.1 mg PO DAILY PRN (Reason: anxiety attack) methadone 10 mg Tablet 40 mg PO DAILY losartan 25 mg Tablet 50 mg PO DAILY furosemide 20 mg tablet 20 mg PO DAILY Discharge Orders: Discharge Order (Routine); Ordered 12/05/23 Ordered By: Denis Arrieta Diet: Advance to usual diet Activity on Discharge: As tolerated Stand Alone Forms: Patient Portal Discharge page Print Language: Wallisian Care Plan Goals: To retunr to [facility] unit for care of depression with SI Health Concerns: Depression Acute kidney injury Bradycardia Hypotension Plan of Treatment: Hypotension now resolved--Stop Clonidine, Losartan and Lasix HTN--started on Norvasc Bradycardia--stop Clonidine and no beta duane such as metoprolol, Coreg, Atenolol and others Psychiatric disorders --to continue medication as before with increased in Haldol to 5 TID from bid, and ativan PRN as Opioid dependence.. Methadone dose increased from 40 to 45 Repeat BMP in 2 days Discharge Date/Time: 12/05/23 17:57
[2023-12-05 11:15] VITALS: BP 135/66; PULSE 53; RESP 19; TEMP 36.2; O2SAT 92
[2023-12-05 11:42] LABS: Thyroid Stimulating Hormone 1.29 uIU/mL (0.32-4.0)
[2023-12-05 14:29] LABS: Anion Gap 13 (12-20); Blood Urea Nitrogen 23 mg/dL (9-16); Calcium 9.7 mg/dL (8.4-10.2); Carbon Dioxide 26 mmol/L (22-29); Chloride 105 mmol/L (96-108); Creatinine Clr Calc Pharmacy 48.3; Estimated Glomerular Filt Rate > 60; Glucose Random 92 mg/dL (60-115); Potassium 4.7 mmol/L (3.3-5.1); Sodium 139 mmol/L (135-145)
[2023-12-05 15:08] VITALS: BP 119/72; PULSE 75; RESP 18; TEMP 36.4; O2SAT 97
--- NOTE | 2023-12-05 19:22 | PC.NURSE ---
Skin/contraband check completed upon admission.
== END 2023-12-05 17:57 | DRG 917 ==
LOC: HO.ED 23:43 → HO.EDOVER 12-02 00:32 → HO.IMC 12-02 07:27
PROVIDERS: Admitting Provider Student in an Organized Health Care Education/Training Program; Emergency Provider Emergency Medicine; Visit Provider Internal Medicine
DX: T50.901A Poisoning by unspecified drugs, medicaments and biological substances, accidental (unintentional), initial encounter (principal); G92.8 Other toxic encephalopathy; F11.20 Opioid dependence, uncomplicated; F05 Delirium due to known physiological condition; F23 Brief psychotic disorder; F17.210 Nicotine dependence, cigarettes, uncomplicated; N40.0 Benign prostatic hyperplasia without lower urinary tract symptoms; R00.1 Bradycardia, unspecified; I10 Essential (primary) hypertension; I95.2 Hypotension due to drugs; F10.90 Alcohol use, unspecified, uncomplicated; Z71.6 Tobacco abuse counseling; Z79.899 Other long term (current) drug therapy
CPT/HCPCS: 36415; 70450; 71045; 80048; 80076; 80307; 81003; 82140; 82550; 82803; 83605; 83690; 83735; 84443; 84484; 85025; 85027; 93005; 99285; J0461; J0613; J1610; J1650; J2060; S9485

== ENCOUNTER → 2023-12-01 21:06 | Outpatient (BNV) | payer OTHER, MEDICAID, SELFPAY | PROVIDERS: Admitting Provider Student in an Organized Health Care Education/Training Program; Emergency Provider Emergency Medicine; Visit Provider Internal Medicine Cardiovascular Disease | DX: R00.1 Bradycardia, unspecified (principal) | CPT/HCPCS: 93010 ==

== ENCOUNTER 2023-12-02 00:16 | Outpatient (BNV) | payer OTHER, SELFPAY | END 2023-12-05 11:00 | PROVIDERS: Admitting Provider Student in an Organized Health Care Education/Training Program; Emergency Provider Emergency Medicine; Visit Provider Internal Medicine | DX: R00.1 Bradycardia, unspecified (principal) | CPT/HCPCS: 93010 ==

== ENCOUNTER 2023-12-02 00:16 | Outpatient (BNV) | payer OTHER, SELFPAY | END 2023-12-02 12:24 | PROVIDERS: Admitting Provider Student in an Organized Health Care Education/Training Program; Emergency Provider Emergency Medicine; Visit Provider Internal Medicine | DX: I49.1 Atrial premature depolarization (principal) | CPT/HCPCS: 93010 ==

== ENCOUNTER → 2023-12-02 00:16 | Outpatient (BNV) | payer OTHER, SELFPAY | PROVIDERS: Admitting Provider Student in an Organized Health Care Education/Training Program; Emergency Provider Emergency Medicine; Visit Provider Psychiatry & Neurology Psychiatry | DX: F29 Unspecified psychosis not due to a substance or known physiological condition (principal); R41.0 Disorientation, unspecified | CPT/HCPCS: 99222 ==

== ENCOUNTER → 2023-12-02 00:16 | Outpatient (BNV) | payer OTHER, MEDICAID, SELFPAY | PROVIDERS: Admitting Provider Student in an Organized Health Care Education/Training Program; Emergency Provider Emergency Medicine; Visit Provider Student in an Organized Health Care Education/Training Program | DX: I95.9 Hypotension, unspecified (principal); F11.90 Opioid use, unspecified, uncomplicated | CPT/HCPCS: 99223; 99232; 99239 ==

== ENCOUNTER → 2023-12-02 00:16 | Outpatient (BNV) | payer OTHER, SELFPAY | PROVIDERS: Admitting Provider Student in an Organized Health Care Education/Training Program; Emergency Provider Emergency Medicine; Visit Provider Nurse Practitioner Psychiatric/Mental Health | DX: F11.90 Opioid use, unspecified, uncomplicated (principal) | CPT/HCPCS: 99221 ==

== ENCOUNTER 2023-12-05 18:44 | Inpatient (IN) | payer OTHER, SELFPAY ==
[2023-12-05 19:05] VITALS: BP 122/88; PULSE 87; RESP 16; TEMP 36.1; O2SAT 96
[2023-12-05 20:00] VITALS: BP 141/80; PULSE 87; RESP 18; TEMP 36.7; O2SAT 96
[2023-12-05 22:38] VITALS: BMI 23.7
[2023-12-05] MEDS: LORazepam 1 MG TABLET PO (22:58)
--- NOTE | 2023-12-06 02:29 | PC.ADMIT ---
Admitted these 68 yrs old patient initially presented to [facility] from [facility] on 12/01/23 due to staff's concern of low blood pressure and heart rate. It has been suspected that [facility] staff administered pt's medication incorrectly during his time at the facility(11/28/23-12/01/23. Pt was medically admitted to [facility] on 12/02/23 due to concern of acute kidney injury and altered mental status. While in [facility], pt was experiencing hallucinations and agitation. Pt has documented dx of Major Depressive Disorder, PTSD, anxiety and has hx of alcohol use. Pt is medically cleared and is seen by care team for tx recommendations and assessment for safety. Pt. arrived in the unit at 18:45h. Pt is alert and oriented x4, somewhat disheveled, pleasant and engaged in conversation. Pt is oriented to the unit, room, roommate and staff. Pt signs the CV. Pt refused to participate in the admission process. Pt said he is tired and wants to sleep and said he will do it in the morning. Pt at this time denies SI/HI/AVH and feels safe in the unit. Pt said he is anxious and depressed and rated it as 7/10. Pt said his appetite sucks and his sleep is broken. Pt c/o lower back pain and rated it as 8/10 but refused Tylenol. Pt given Ativan 1 mg. w/ good effect. We'll continue to monitor pt.
[2023-12-06 07:00] VITALS: BMI 24.2
[2023-12-06 08:00] VITALS: BP 124/73; PULSE 77; RESP 18; TEMP 36.3; O2SAT 96
[2023-12-06 08:06] LABS: Alanine Aminotransferase 18 U/L (0-40); Albumin Level 3.7 g/dL (3.5-5.0); Alkaline Phosphatase 45 U/L (39-117); Anion Gap 12 (12-20); Aspartate Amino Transferase 25 U/L (5-37); Bilirubin Total 0.2 mg/dL (0.0-1.0); Blood Urea Nitrogen 26 mg/dL (9-16); Calcium 9.7 mg/dL (8.4-10.2); Carbon Dioxide 28 mmol/L (22-29); Chloride 105 mmol/L (96-108); Cholesterol 147 mg/dL (<200); Creatinine Clr Calc Pharmacy 52.1; Estimated Glomerular Filt Rate > 60; Glucose Fasting 105 mg/dL (60-99); HDL Cholesterol 36 mg/dL (>40); LDL Cholesterol Calculated 92 mg/dL (<100); Potassium 4.8 mmol/L (3.3-5.1); Sodium 140 mmol/L (135-145); Total Protein 6.5 g/dL (6.5-8.0); Triglycerides 96 mg/dL (<150)
[2023-12-06] MEDS: Nicotine 21 MG PATCH.TD24 TRANSDERMA (08:32)
[2023-12-06] MEDS: Multivitamin TABLET 1 TAB PO (08:33)
[2023-12-06] MEDS: DULoxetine HCl 60 MG CAPSULE.DR PO (08:33)
[2023-12-06] MEDS: Cyanocobalamin (Vitamin B-12) 1,000 MCG TABLET 2000 MCG PO (08:33)
[2023-12-06] MEDS: Benztropine Mesylate 0.5 MG TABLET PO ×2 (08:33→20:23)
[2023-12-06] MEDS: Thiamine HCL 100 MG TABLET PO (08:33)
[2023-12-06] MEDS: Ferrous Sulfate 324 MG TABLET.DR PO ×2 (08:33→16:44)
[2023-12-06] MEDS: HaloperidoL 5 MG TABLET PO ×3 (08:33→20:23)
[2023-12-06] MEDS: amLODIPine Besylate 10 MG TABLET PO (08:33)
[2023-12-06] MEDS: methADONE HCl 20 MG/2 ML ORAL.CONC 45 MG PO (08:34)
--- NOTE | 2023-12-06 11:32 | HO.PSYADMNOT ---
HPI Date of Service: 12/06/23 Chief Complaint: mood Sources of Information: patient interviewed, chart reviewed and crisis/core team assessment reviewed HPI Subjective Notes: Welch Warning (given and shows understanding) and Conditional Voluntary Narrative: Mr. La is a 68 year-old male who was sent from [facility] to [facility] due to hypotension and KATHRYN. He apparently was receiving treatment for depression and passive SI. On the medical floor, pt also presented as confused, delirious with psychosis. He was seen by psychiatry on medical floor and haldol was titrated to 5mg po TID. He was also seen by addiction medicine on 12/03 at his requests when no longer presented as delirious, however, pt does not have any recollection of this meeting and fact that methadone was increased to 45mg po daily. On the unit, pt reports disappointment about being at [facility] and not being transferred back to [facility]. He reports he has been there in the past and they know him. 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 He reports passive SI but adamantly denies any plan or intent to harm himself. He is very future oriented and seeking help for psych social stressors. He does not appear internally preoccupied. No delusional content noted or reported. Further collateral information is needed from [facility] regarding treatment as pt presents with significant gaps in memory. He appears to have low frustration tolerance, with expectation that demands be met quickly. He reports some difficulty sleeping. He reports good appetite. Past Psychiatric History: Depression, PTSD, Anxiety, methadone maintenance. Review discharge summary from psychiatry [facility] 11/12/23 (no cognitive issues, managed for depression and SI, no psychosis or hallucinations, history of substance use disorder, methadone, advised against klonopin and declined risperdal for anxiety. [facility] 11/22, transferred to [facility] on 11/28/23 inpatient psychiatry. Med list shows haldol 5mg bid, methadone 40, cymbalta 60, cogentin 0.5 bid, clonidine and trazodone Medical Evaluation Reviewed: Yes PMFSH Medical History Active substance abuse Depression HTN (hypertension) Social History: Pt has 2 adult children with whom he has minimal contact. but some contact with ex . Currently not working. lives in mobile home Substance History: long hx of opioid use. He was prescribed for years oxycodone. Last rx for oxycodone per [facility] was 09/2022. He was on suboxone until 04/2023. Recently started on methadone. He reports recently buying what he thought was oxycodone but it was laced with fentanyl and accidentally OD. Long hx of alcohol but not recent. He reports using cocaine for several month in past years. due to memory problems unclear last use. Trauma History: not disclosed Diagnostics Vital Signs (24Hr): Vital Signs - 24 hr 12/05/23 19:05 12/05/23 20:00 12/06/23 08:00 Temperature 97.0 F 98.1 F 97.4 F Pulse Rate 87 87 77 Respiratory Rate 16 18 18 Blood Pressure 122/88 141/80 H 124/73 Pulse Oximetry 96 96 96 Oxygen Delivery Method Room Air Room Air Room Air BMI result Body Mass Index 24.2 Labs 12/06/23 07:09 Labs: Laboratory Results - last 48 hr 12/06/23 07:09 Sodium 140 Potassium 4.8 Chloride 105 Carbon Dioxide 28 Anion Gap 12 BUN 26 H Creatinine 1.19 Estim Creat Clear Calc 52.1 Estimated GFR > 60 Fasting Glucose 105 H Calcium 9.7 Total Bilirubin 0.2 AST 25 ALT 18 Alkaline Phosphatase 45 Total Protein 6.5 Albumin 3.7 Triglycerides 96 Cholesterol 147 LDL Cholesterol, Calc 92 HDL Cholesterol 36 L Meds/Allergies Meds Home Medications ?Medication ?Instructions ?Recorded ?Confirmed ?Type acetaminophen 325 mg tablet 650 mg PO Q6H PRN Pain 12/02/23 12/05/23 History albuterol sulfate 90 mcg/actuation 2 puff inhalation Q6H PRN Wheezing 12/02/23 12/05/23 History aerosol inhaler benztropine 0.5 mg tablet 0.5 mg PO BID 12/02/23 12/05/23 History cyanocobalamin (vitamin B-12) 2,000 mcg PO DAILY 12/02/23 12/05/23 History 1,000 mcg tablet duloxetine 60 mg capsule,delayed 60 mg PO DAILY 12/02/23 12/05/23 History release ferrous sulfate 325 mg (65 mg 325 mg PO BIDWM 12/02/23 12/05/23 History iron) tablet,delayed release multivitamin 1 tab PO DAILY 12/02/23 12/05/23 History nicotine 21 mg/24 hr daily 1 patch topical DAILY 12/02/23 12/05/23 History transdermal patch polyethylene glycol 3350 17 17 g PO DAILY 12/02/23 12/05/23 History gram/dose oral powder (Miralax) tamsulosin 0.4 mg capsule 0.4 mg PO BEDTIME 12/02/23 12/05/23 History thiamine mononitrate (vit B1) 100 100 mg PO DAILY 12/02/23 12/05/23 History mg tablet trazodone 50 mg tablet 50 mg PO BEDTIME PRN Insomnia 12/02/23 12/05/23 History Allergies Allergies Allergy/AdvReac Type Severity Reaction Status Date / Time No Known Allergies Allergy Verified 12/05/23 22:38 Mental Status Exam Mental Status Exam Narrative: Appearance: wearing hospital gown, fair hygiene, in NAD Behavior: somewhat guarded as he wants to go to [facility] Psychomotor: no agitation or retardation noted Speech: clear, regular rate/rhythm/volume, spontaneous TP: repetitive TC: wanting to transfer to [facility] Mood: upset about being here Affect: congruent, brightens up at times, mildly irritable SI: adamantly denies HI: none VH/AH: none Delusions: none Insight/judgment: impaired x 2. Memory/cog: alert, oriented to place, situation. pending MOCA and ACL but suspect moderate to severe cog impairments affecting his ability to care for himself. Assessment & Plan Assessment & Plan (1) MDD (major depressive disorder), recurrent episode, moderate: Status: Acute Code(s): F33.1 - Major depressive disorder, recurrent, moderate (2) Opioid use disorder: Status: Acute Code(s): F11.90 - Opioid use, unspecified, uncomplicated (3) Cognitive impairment: Status: Acute Code(s): R41.89 - Other symptoms and signs involving cognitive functions and awareness Plan Mr. La is a 68 year-old male with hx of depression, opioid use disorder who was transferred from [facility] due to hypotention and KATHRYN. Pt reports some depression but his main concerns are related to multiple psychosocial stressors including needing more support in the community, concern about his memory. I do suspect there are moderate to severe memory impairments most likely in aspects such as visuospatial, executive function, recall. Will complete MOCA and ACL. He wants to renew license but concern about his ability to drive safely. We discussed risks, benefits and alternative treatment options. will continue current medication until further collateral information as pt very poor historian. NOte that methadone was increased on 12/03 by addiction medicine but pt has no recollection and asking for further increase. PLAN 1. admit to , CV, 15 minutes checks 2. continue current medication 3. obtain collateral information 4. Aftercare planning. Patient educated on: diagnosis, medication risk/benefits and substance abuse Reason for continued inpatient stay Substantial Risk for: inability to function Statement Statement: I have reviewed the history and physical and performed a pertinent examination on my patient. No changes have occurred unless specified. If the History and Physical was not performed prior to admission, the Hospitalist's service will be consulted for completing the admission physical. Time Spent With Patient Time: Total time managing care of this patient today ____ minutes.
[2023-12-06 20:00] VITALS: BP 131/77; PULSE 79; RESP 18; TEMP 36.7; O2SAT 95
[2023-12-06] MEDS: LORazepam 1 MG TABLET PO (20:23)
[2023-12-06] MEDS: Tamsulosin HCL 0.4 MG CAPSULE PO (20:23)
[2023-12-06] MEDS: Acetaminophen 325 MG TABLET 650 MG PO (20:23)
[2023-12-07 08:00] VITALS: BP 129/63; PULSE 72; RESP 18; TEMP 36.7; O2SAT 94
[2023-12-07] MEDS: methADONE HCl 20 MG/2 ML ORAL.CONC 45 MG PO (08:33)
[2023-12-07] MEDS: Multivitamin TABLET 1 TAB PO (08:34)
[2023-12-07] MEDS: HaloperidoL 5 MG TABLET PO ×3 (08:34→20:45)
[2023-12-07] MEDS: DULoxetine HCl 60 MG CAPSULE.DR PO (08:34)
[2023-12-07] MEDS: Thiamine HCL 100 MG TABLET PO (08:34)
[2023-12-07] MEDS: Nicotine 21 MG PATCH.TD24 TRANSDERMA (08:34)
[2023-12-07] MEDS: Ferrous Sulfate 324 MG TABLET.DR PO ×2 (08:35→17:24)
[2023-12-07] MEDS: Benztropine Mesylate 0.5 MG TABLET PO ×2 (08:35→20:45)
[2023-12-07] MEDS: Cyanocobalamin (Vitamin B-12) 1,000 MCG TABLET 2000 MCG PO (08:35)
[2023-12-07] MEDS: amLODIPine Besylate 10 MG TABLET PO (08:35)
--- NOTE | 2023-12-07 10:57 | MHC.CLN ---
NUTRITION CONSULT FOR POOR APPETITE. PATIENT REPORTED GOOD APPETITE TO PROVIDER AND POOR APPETITE TO [facility] NURSE. ADMITTED TO [facility] 12/01. MEDICALLY CLEARED FOR [facility] ADM. INTAKE SINCE 12/01 0-100%, WITH MOST ABOUT 25%. ADDING ENSURE BID TO PROVIDE ADDITIONAL NUTRITION. SUPPLEMENT PROVIDES 700 KCALS, 40 G PROTEIN. DIET=REGULAR. CONTINUE CURRENT DIET AND SUPPLEMENT.
--- NOTE | 2023-12-07 14:13 | HO.PSYCHPN ---
Subjective Subjective Date of Service: 12/07/23 Reason For Visit: mood Subjective Notes: Conditional Voluntary Interim History: The nursing staff reported the patient retracted his 3 day notice. He stated that his expectation was to go to [facility]. He had been pleasant cooperative slept 7 hours. He met with the protective services social worker and apparently his reported that since he started using opioids got addicted and destroyed his life to the point that he had been using cocaine. The occupational therapist is going to do cognitive assessments. On interview the patient denies new symptoms states that he feels tiredbut less depressed, asking for anxyolitics.. Mental Status Exam Mental Status Exam Patient Appearance: Appropriate Patient Orientation: Person and Situation Level of Consciousness: Awake Patient Behavior: Guarded and Passive Mood Description: Calm Affect Description: Constricted Patient Cognition Impaired: Yes Ability to Follow Directions: Fair Speech Pattern: Clear Hallucinations: None Delusions: Not Present Thought Process: Distracted and Slowed Thinking Thought Content: positive for Penryn and positive for Poverty of Content Judgement: Poor Diagnostics Vital Signs (24Hr): Vital Signs - 24 hr 12/06/23 20:00 12/07/23 08:00 Temperature 98.1 F 98.1 F Pulse Rate 79 72 Respiratory Rate 18 18 Blood Pressure 131/77 129/63 Pulse Oximetry 95 94 Oxygen Delivery Method Room Air Room Air BMI result Body Mass Index 24.2 Labs 12/06/23 07:09 Labs: Laboratory Results - last 48 hr 12/06/23 07:09 Sodium 140 Potassium 4.8 Chloride 105 Carbon Dioxide 28 Anion Gap 12 BUN 26 H Creatinine 1.19 Estim Creat Clear Calc 52.1 Estimated GFR > 60 Fasting Glucose 105 H Calcium 9.7 Total Bilirubin 0.2 AST 25 ALT 18 Alkaline Phosphatase 45 Total Protein 6.5 Albumin 3.7 Triglycerides 96 Cholesterol 147 LDL Cholesterol, Calc 92 HDL Cholesterol 36 L Medications Medications Current Medications Acetaminophen (Acetaminophen 325 Mg Tablet) 650 mg PO Q6H PRN PRN Reason: Headache/Pain Mild Scale (1-3) Last Admin: 12/06/23 20:23 Dose: 650 mg Al Hydroxide/Mg Hydroxide (Magnesium Hydrox/Alum Hydrox 30 Ml Oral.Susp) 30 ml PO Q6H PRN PRN Reason: Heartburn/Nausea Albuterol Sulfate (Albuterol Sulfate 90 Mcg 8 Gm Inhaler) 2 puff INHALE Q6H PRN PRN Reason: Wheezing Amlodipine Besylate (Amlodipine Besylate 10 Mg Tablet) 10 mg PO DAILY [facility]; Protocol Last Admin: 12/07/23 08:35 Dose: 10 mg Benztropine Mesylate (Benztropine Mesylate 0.5 Mg Tablet) 0.5 mg PO BID [facility] Last Admin: 12/07/23 08:35 Dose: 0.5 mg Cyanocobalamin (Cyanocobalamin (Vitamin B-12) 1,000 Mcg Tablet) 2,000 mcg PO DAILY [facility] Last Admin: 12/07/23 08:35 Dose: 2,000 mcg Duloxetine HCl (Duloxetine Hcl 60 Mg Capsule.) 60 mg PO DAILY [facility] Last Admin: 12/07/23 08:34 Dose: 60 mg Ferrous Sulfate (Ferrous Sulfate 324 Mg Tablet.) 324 mg PO BIDWM [facility] Last Admin: 12/07/23 08:35 Dose: 324 mg Haloperidol (Haloperidol 5 Mg Tablet) 5 mg PO TID [facility] Last Admin: 12/07/23 08:34 Dose: 5 mg Hydroxyzine HCl (Hydroxyzine Hcl 25 Mg Tablet) 25 mg PO Q6H PRN PRN Reason: Anxiety Lorazepam (Lorazepam 1 Mg Tablet) 1 mg PO Q6H PRN PRN Reason: Anxiety Last Admin: 12/06/23 20:23 Dose: 1 mg Magnesium Hydroxide (Milk Of Magnesia 30 Ml Oral.Susp) 30 ml PO DAILY PRN PRN Reason: Constipation Methadone HCl (Methadone Hcl 20 Mg/2 Ml Oral.Conc) 45 mg PO DAILY [facility] Last Admin: 12/07/23 08:33 Dose: 45 mg Multivitamins/Vitamin C (Multivitamin Tablet) 1 tab PO DAILY [facility] Last Admin: 12/07/23 08:34 Dose: 1 tab Nicotine (Nicotine 21 Mg Patch.Td24) 21 mg TRANSDERMA DAILY [facility] Last Admin: 12/07/23 08:34 Dose: 21 mg Polyethylene Glycol (Polyethylene Glycol 3350 17 Gm Powd.Pack) 17 gm PO DAILY [facility] Last Admin: 12/07/23 08:39 Dose: Not Given Tamsulosin HCl (Tamsulosin Hcl 0.4 Mg Capsule) 0.4 mg PO BEDTIME [facility] Last Admin: 12/06/23 20:23 Dose: 0.4 mg Thiamine HCl (Thiamine Hcl 100 Mg Tablet) 100 mg PO DAILY [facility] Last Admin: 12/07/23 08:34 Dose: 100 mg Trazodone HCl (Trazodone Hcl 50 Mg Tablet) 50 mg PO BEDTIME PRN PRN Reason: Insomnia Allergies Allergies Allergy/AdvReac Type Severity Reaction Status Date / Time No Known Allergies Allergy Verified 12/05/23 22:38 Assessment & Plan Assessment & Plan (1) MDD (major depressive disorder), recurrent episode, moderate: Status: Acute Code(s): F33.1 - Major depressive disorder, recurrent, moderate (2) Opioid use disorder: Status: Acute Code(s): F11.90 - Opioid use, unspecified, uncomplicated (3) Cognitive impairment: Status: Acute Code(s): R41.89 - Other symptoms and signs involving cognitive functions and awareness Plan Mr. La is a 68 year-old male with hx of depression, opioid use disorder who was transferred from [facility] due to hypotention and KATHRYN. Pt reports some depression but his main concerns are related to multiple psychosocial stressors including needing more support in the community, concern about his memory. I do suspect there are moderate to severe memory impairments most likely in aspects such as visuospatial, executive function, recall. Will complete MOCA and ACL. He wants to renew license but concern about his ability to drive safely. We discussed risks, benefits and alternative treatment options. will continue current medication until further collateral information as pt very poor historian. NOte that methadone was increased on 12/03 by addiction medicine but pt has no recollection and asking for further increase. PLAN 1. admit to [facility], CV, 15 minutes checks 2. continue current medication 3. obtain collateral information 4. Aftercare planning. Reason for continued inpatient stay Substantial Risk for: inability to function, rapid decompensation and med/psych decompensation Time Spent With Patient Time: Total time managing care of this patient today _20___ minutes.
[2023-12-07 20:00] VITALS: BP 152/73; PULSE 62; RESP 16; TEMP 36.2; O2SAT 97
[2023-12-07] MEDS: Tamsulosin HCL 0.4 MG CAPSULE PO (20:45)
[2023-12-07] MEDS: Acetaminophen 325 MG TABLET 650 MG PO (20:46)
[2023-12-07] MEDS: LORazepam 1 MG TABLET PO (20:46)
[2023-12-08 08:00] VITALS: BP 115/67; PULSE 68; TEMP 36.6; O2SAT 94
[2023-12-08] MEDS: Nicotine 21 MG PATCH.TD24 TRANSDERMA (08:36)
[2023-12-08] MEDS: amLODIPine Besylate 10 MG TABLET PO (08:37)
[2023-12-08] MEDS: Ferrous Sulfate 324 MG TABLET.DR PO ×2 (08:37→15:54)
[2023-12-08] MEDS: DULoxetine HCl 60 MG CAPSULE.DR PO (08:38)
[2023-12-08] MEDS: Benztropine Mesylate 0.5 MG TABLET PO ×2 (08:38→20:43)
[2023-12-08] MEDS: HaloperidoL 5 MG TABLET PO ×3 (08:38→20:42)
[2023-12-08] MEDS: Cyanocobalamin (Vitamin B-12) 1,000 MCG TABLET 2000 MCG PO (08:38)
[2023-12-08] MEDS: Thiamine HCL 100 MG TABLET PO (08:38)
[2023-12-08] MEDS: Multivitamin TABLET 1 TAB PO (08:39)
--- NOTE | 2023-12-08 18:31 | P.PNPSI_ITS ---
Subjective Subjective Date of Service: 12/08/23 Reason For Visit: mood Interim History: Met with patient; discussed with team Patient frustrated says his methadone was supposed to be titrated every day and it should be higher by now. Asks for it to be increased. Says that he would very much like to go back to [place] as soon as he can. Reports he is doing fine but he is bored on the unit, there is no activities and he is missing his AA meetings. Regarding methadone patient insists that he he used to be on methadone 750 mg in combination with oxycodone 560 mg and Also Ritalin 120 mg. Mental Status Exam Mental Status Exam Patient Appearance: Appropriate Patient Orientation: Person and Situation Level of Consciousness: Awake Patient Behavior: Guarded and Passive Mood Description: Calm Affect Description: Constricted Patient Cognition Impaired: Yes Ability to Follow Directions: Fair Speech Pattern: Clear Hallucinations: None Delusions: Not Present Thought Process: Distracted and Slowed Thinking Thought Content: positive for [place] and positive for Poverty of Content Judgement: Poor Diagnostics Vital Signs (24Hr): Vital Signs - 24 hr 12/07/23 20:00 12/08/23 08:00 Temperature 97.2 F 97.8 F Pulse Rate 62 68 Respiratory Rate 16 Blood Pressure 152/73 H 115/67 Pulse Oximetry 97 94 Oxygen Delivery Method Room Air Room Air BMI result Body Mass Index 24.2 Labs 12/06/23 07:09 Medications Medications Current Medications Acetaminophen (Acetaminophen 325 Mg Tablet) 650 mg PO Q6H PRN PRN Reason: Headache/Pain Mild Scale (1-3) Last Admin: 12/07/23 20:46 Dose: 650 mg Al Hydroxide/Mg Hydroxide (Magnesium Hydrox/Alum Hydrox 30 Ml Oral.Susp) 30 ml PO Q6H PRN PRN Reason: Heartburn/Nausea Albuterol Sulfate (Albuterol Sulfate 90 Mcg 8 Gm Inhaler) 2 puff INHALE Q6H PRN PRN Reason: Wheezing Amlodipine Besylate (Amlodipine Besylate 10 Mg Tablet) 10 mg PO DAILY [facility]; Protocol Last Admin: 12/08/23 08:37 Dose: 10 mg Benztropine Mesylate (Benztropine Mesylate 0.5 Mg Tablet) 0.5 mg PO BID [facility] Last Admin: 12/08/23 08:38 Dose: 0.5 mg Cyanocobalamin (Cyanocobalamin (Vitamin B-12) 1,000 Mcg Tablet) 2,000 mcg PO DAILY [facility] Last Admin: 12/08/23 08:38 Dose: 2,000 mcg Duloxetine HCl (Duloxetine Hcl 60 Mg Capsule.) 60 mg PO DAILY [facility] Last Admin: 12/08/23 08:38 Dose: 60 mg Ferrous Sulfate (Ferrous Sulfate 324 Mg Tablet.) 324 mg PO BIDWM [facility] Last Admin: 12/08/23 15:54 Dose: 324 mg Haloperidol (Haloperidol 5 Mg Tablet) 5 mg PO TID [facility] Last Admin: 12/08/23 15:54 Dose: 5 mg Hydroxyzine HCl (Hydroxyzine Hcl 25 Mg Tablet) 25 mg PO Q6H PRN PRN Reason: Anxiety Lorazepam (Lorazepam 1 Mg Tablet) 1 mg PO Q6H PRN PRN Reason: Anxiety Last Admin: 12/07/23 20:46 Dose: 1 mg Magnesium Hydroxide (Milk Of Magnesia 30 Ml Oral.Susp) 30 ml PO DAILY PRN PRN Reason: Constipation Methadone HCl (Methadone Hcl 20 Mg/2 Ml Oral.Conc) 45 mg PO DAILY [facility] Last Admin: 12/08/23 08:36 Dose: Not Given Multivitamins/Vitamin C (Multivitamin Tablet) 1 tab PO DAILY [facility] Last Admin: 12/08/23 08:39 Dose: 1 tab Nicotine (Nicotine 21 Mg Patch.Td24) 21 mg TRANSDERMA DAILY [facility] Last Admin: 12/08/23 08:36 Dose: 21 mg Polyethylene Glycol (Polyethylene Glycol 3350 17 Gm Powd.Pack) 17 gm PO DAILY [facility] Last Admin: 12/08/23 08:48 Dose: Not Given Tamsulosin HCl (Tamsulosin Hcl 0.4 Mg Capsule) 0.4 mg PO BEDTIME [facility] Last Admin: 12/07/23 20:45 Dose: 0.4 mg Thiamine HCl (Thiamine Hcl 100 Mg Tablet) 100 mg PO DAILY [facility] Last Admin: 12/08/23 08:38 Dose: 100 mg Trazodone HCl (Trazodone Hcl 50 Mg Tablet) 50 mg PO BEDTIME PRN PRN Reason: Insomnia Allergies Allergies Allergy/AdvReac Type Severity Reaction Status Date / Time No Known Allergies Allergy Verified 12/05/23 22:38 Assessment & Plan Assessment & Plan (1) MDD (major depressive disorder), recurrent episode, moderate: Status: Acute Code(s): F33.1 - Major depressive disorder, recurrent, moderate (2) Opioid use disorder: Status: Acute Code(s): F11.90 - Opioid use, unspecified, uncomplicated (3) Cognitive impairment: Status: Acute Code(s): R41.89 - Other symptoms and signs involving cognitive functions and awareness Plan Mr. La is a 68 year-old male with hx of depression, opioid use disorder who was transferred from [place] due to hypotention and KATHRYN. Pt reports some depression but his main concerns are related to multiple psychosocial stressors including needing more support in the community, concern about his memory. I do suspect there are moderate to severe memory impairments most likely in aspects such as visuospatial, executive function, recall. Will complete MOCA and ACL. He wants to renew license but concern about his ability to drive safely. We discussed risks, benefits and alternative treatment options. will continue current medication until further collateral information as pt very poor historian. NOte that methadone was increased on 12/03 by addiction medicine but pt has no recollection and asking for further increase. Hospital course: 12/07 Patient frustrated says his methadone was supposed to be titrated every day and it should be higher by now. Asks for it to be increased. Says that he would very much like to go back to [place] as soon as he can. Reports he is doing fine but he is bored on the unit, there is no activities and he is missing his AA meetings. Regarding methadone patient insists that he he used to be on methadone 750 mg in combination with oxycodone 560 mg and Also Ritalin 120 mg. PLAN 1. admit to S1, CV, 15 minutes checks -will titrate methadone to 50 mg 2. continue current medication 3. obtain collateral information 4. Aftercare planning. Patient educated on: diagnosis, medication risk/benefits, substance abuse and therapeutic strategies Informed Consent: understands, does not understand and further education needed Reason for continued inpatient stay Substantial Risk for: rapid decompensation Time Spent With Patient Time: Total time managing care of this patient today ____ minutes.
[2023-12-08 20:00] VITALS: BP 148/72; PULSE 62; RESP 16; TEMP 36.4; O2SAT 98
[2023-12-08] MEDS: Tamsulosin HCL 0.4 MG CAPSULE PO (20:42)
[2023-12-08] MEDS: LORazepam 1 MG TABLET PO (20:42)
[2023-12-08] MEDS: Acetaminophen 325 MG TABLET 650 MG PO (20:43)
[2023-12-09] MEDS: methADONE HCl 20 MG/2 ML ORAL.CONC 45 MG PO (07:27)
[2023-12-09 09:30] VITALS: BP 132/64; PULSE 60; RESP 16; TEMP 36.4; O2SAT 94
[2023-12-09] MEDS: Multivitamin TABLET 1 TAB PO (09:33)
[2023-12-09] MEDS: Ferrous Sulfate 324 MG TABLET.DR PO ×2 (09:33→15:25)
[2023-12-09] MEDS: amLODIPine Besylate 10 MG TABLET PO (09:33)
[2023-12-09] MEDS: Benztropine Mesylate 0.5 MG TABLET PO ×2 (09:33→20:26)
[2023-12-09] MEDS: DULoxetine HCl 60 MG CAPSULE.DR PO (09:33)
[2023-12-09] MEDS: Thiamine HCL 100 MG TABLET PO (09:33)
[2023-12-09] MEDS: Nicotine 21 MG PATCH.TD24 TRANSDERMA (09:33)
[2023-12-09] MEDS: Cyanocobalamin (Vitamin B-12) 1,000 MCG TABLET 2000 MCG PO (09:33)
[2023-12-09] MEDS: HaloperidoL 5 MG TABLET PO ×3 (09:33→20:26)
--- NOTE | 2023-12-09 16:17 | P.PNPSI_ITS ---
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 Mental Status Exam Mental Status Exam Patient Appearance: Appropriate Patient Orientation: Person and Situation Level of Consciousness: Awake Patient Behavior: Guarded and Passive Mood Description: Calm Affect Description: Constricted Patient Cognition Impaired: Yes Ability to Follow Directions: Fair Speech Pattern: Clear Hallucinations: None Delusions: Not Present Thought Process: Distracted and Slowed Thinking Thought Content: positive for [place] and positive for Poverty of Content Judgement: Poor Diagnostics Vital Signs (24Hr): Vital Signs - 24 hr 12/08/23 20:00 12/09/23 09:30 Temperature 97.6 F 97.6 F Pulse Rate 62 60 Respiratory Rate 16 16 Blood Pressure 148/72 H 132/64 Pulse Oximetry 98 94 Oxygen Delivery Method Room Air Room Air BMI result Body Mass Index 24.2 Labs 12/06/23 07:09 Medications Medications Current Medications Acetaminophen (Acetaminophen 325 Mg Tablet) 650 mg PO Q6H PRN PRN Reason: Headache/Pain Mild Scale (1-3) Last Admin: 12/08/23 20:43 Dose: 650 mg Al Hydroxide/Mg Hydroxide (Magnesium Hydrox/Alum Hydrox 30 Ml Oral.Susp) 30 ml PO Q6H PRN PRN Reason: Heartburn/Nausea Albuterol Sulfate (Albuterol Sulfate 90 Mcg 8 Gm Inhaler) 2 puff INHALE Q6H PRN PRN Reason: Wheezing Amlodipine Besylate (Amlodipine Besylate 10 Mg Tablet) 10 mg PO DAILY [facility]; Protocol Last Admin: 12/09/23 09:33 Dose: 10 mg Benztropine Mesylate (Benztropine Mesylate 0.5 Mg Tablet) 0.5 mg PO BID [facility] Last Admin: 12/09/23 09:33 Dose: 0.5 mg Cyanocobalamin (Cyanocobalamin (Vitamin B-12) 1,000 Mcg Tablet) 2,000 mcg PO DAILY [facility] Last Admin: 12/09/23 09:33 Dose: 2,000 mcg Duloxetine HCl (Duloxetine Hcl 60 Mg Capsule.) 60 mg PO DAILY [facility] Last Admin: 12/09/23 09:33 Dose: 60 mg Ferrous Sulfate (Ferrous Sulfate 324 Mg Tablet.) 324 mg PO BIDWM [facility] Last Admin: 12/09/23 15:25 Dose: 324 mg Haloperidol (Haloperidol 5 Mg Tablet) 5 mg PO TID [facility] Last Admin: 12/09/23 15:25 Dose: 5 mg Hydroxyzine HCl (Hydroxyzine Hcl 25 Mg Tablet) 25 mg PO Q6H PRN PRN Reason: Anxiety Lorazepam (Lorazepam 1 Mg Tablet) 1 mg PO Q6H PRN PRN Reason: Anxiety Last Admin: 12/08/23 20:42 Dose: 1 mg Magnesium Hydroxide (Milk Of Magnesia 30 Ml Oral.Susp) 30 ml PO DAILY PRN PRN Reason: Constipation Methadone HCl (Methadone Hcl 20 Mg/2 Ml Oral.Conc) 50 mg PO DAILY [facility] Multivitamins/Vitamin C (Multivitamin Tablet) 1 tab PO DAILY [facility] Last Admin: 12/09/23 09:33 Dose: 1 tab Nicotine (Nicotine 21 Mg Patch.Td24) 21 mg TRANSDERMA DAILY [facility] Last Admin: 12/09/23 09:33 Dose: 21 mg Polyethylene Glycol (Polyethylene Glycol 3350 17 Gm Powd.Pack) 17 gm PO DAILY [facility] Last Admin: 12/09/23 09:53 Dose: Not Given Tamsulosin HCl (Tamsulosin Hcl 0.4 Mg Capsule) 0.4 mg PO BEDTIME [facility] Last Admin: 12/08/23 20:42 Dose: 0.4 mg Thiamine HCl (Thiamine Hcl 100 Mg Tablet) 100 mg PO DAILY [facility] Last Admin: 12/09/23 09:33 Dose: 100 mg Trazodone HCl (Trazodone Hcl 50 Mg Tablet) 50 mg PO BEDTIME PRN PRN Reason: Insomnia Allergies Allergies Allergy/AdvReac Type Severity Reaction Status Date / Time No Known Allergies Allergy Verified 12/05/23 22:38 Assessment & Plan Assessment & Plan (1) MDD (major depressive disorder), recurrent episode, moderate: Status: Acute Code(s): F33.1 - Major depressive disorder, recurrent, moderate (2) Opioid use disorder: Status: Inactive Code(s): F11.90 - Opioid use, unspecified, uncomplicated (3) Cognitive impairment: Status: Acute Code(s): R41.89 - Other symptoms and signs involving cognitive functions and awareness Plan Mr. La is a 68 year-old male with hx of depression, opioid use disorder who was transferred from [place] due to hypotention and KATHRYN. Pt reports some depression but his main concerns are related to multiple psychosocial stressors including needing more support in the community, concern about his memory. I do suspect there are moderate to severe memory impairments most likely in aspects such as visuospatial, executive function, recall. Will complete MOCA and ACL. He wants to renew license but concern about his ability to drive safely. We discussed risks, benefits and alternative treatment options. will continue current medication until further collateral information as pt very poor historian. NOte that methadone was increased on 12/03 by addiction medicine but pt has no recollection and asking for further increase. Hospital course: 12/07 Patient frustrated says his methadone was supposed to be titrated every day and it should be higher by now. Asks for it to be increased. Says that he would very much like to go back to [place] as soon as he can. Reports he is doing fine but he is bored on the unit, there is no activities and he is missing his AA meetings. Regarding methadone patient insists that he he used to be on methadone 750 mg in combination with oxycodone 560 mg and Also Ritalin 120 mg. 12/08 patient appreciative of increasing methadone PLAN 1. admit to S1, CV, 15 minutes checks -will titrate methadone to 50 mg 2. continue current medication 3. obtain collateral information 4. Aftercare planning. Patient educated on: diagnosis and medication risk/benefits Informed Consent: understands Reason for continued inpatient stay Substantial Risk for: med/psych decompensation Time Spent With Patient Time: Total time managing care of this patient today ____ minutes.
[2023-12-09 20:00] VITALS: BP 132/63; PULSE 72; RESP 18; TEMP 36.5; O2SAT 97
[2023-12-09] MEDS: LORazepam 1 MG TABLET PO (20:26)
[2023-12-09] MEDS: Tamsulosin HCL 0.4 MG CAPSULE PO (20:26)
[2023-12-09] MEDS: Acetaminophen 325 MG TABLET 650 MG PO (20:26)
[2023-12-10 07:55] VITALS: BP 134/68; PULSE 63; RESP 18; TEMP 36.8; O2SAT 98
[2023-12-10] MEDS: HaloperidoL 5 MG TABLET PO ×3 (08:13→20:31)
[2023-12-10] MEDS: Benztropine Mesylate 0.5 MG TABLET PO ×2 (08:13→20:31)
[2023-12-10] MEDS: Thiamine HCL 100 MG TABLET PO (08:13)
[2023-12-10] MEDS: Multivitamin TABLET 1 TAB PO (08:13)
[2023-12-10] MEDS: amLODIPine Besylate 10 MG TABLET PO (08:13)
[2023-12-10] MEDS: Ferrous Sulfate 324 MG TABLET.DR PO ×2 (08:13→17:06)
[2023-12-10] MEDS: Cyanocobalamin (Vitamin B-12) 1,000 MCG TABLET 2000 MCG PO (08:13)
[2023-12-10] MEDS: DULoxetine HCl 60 MG CAPSULE.DR PO (08:13)
[2023-12-10] MEDS: methADONE HCl 20 MG/2 ML ORAL.CONC 50 MG PO (08:14)
[2023-12-10] MEDS: Nicotine 21 MG PATCH.TD24 TRANSDERMA (08:14)
--- NOTE | 2023-12-10 15:31 | HO.PSYCHPN ---
Subjective Subjective Date of Service: 12/10/23 Reason For Visit: mood Subjective Notes: Conditional Voluntary Interim History: The nursing staff reported the patient had been compliant with treatment, he had been pleasant cooperative. On interview the patient denies new symptoms, states that he likes here Mental Status Exam Mental Status Exam Patient Appearance: Appropriate Patient Orientation: Person and Situation Level of Consciousness: Awake and Appropriate Patient Behavior: Guarded and Passive Mood Description: Withdrawn Affect Description: Constricted Patient Cognition Impaired: Yes Ability to Follow Directions: Good Speech Pattern: Clear Hallucinations: None Delusions: Not Present Thought Process: Distracted Thought Content: positive for [place] and positive for Circumstantial Judgement: Fair Diagnostics Vital Signs (24Hr): Vital Signs - 24 hr 12/09/23 20:00 12/10/23 07:55 Temperature 97.7 F 98.2 F Pulse Rate 72 63 Respiratory Rate 18 18 Blood Pressure 132/63 134/68 Pulse Oximetry 97 98 Oxygen Delivery Method Room Air Room Air BMI result Body Mass Index 24.2 Labs 12/06/23 07:09 Medications Medications Current Medications Acetaminophen (Acetaminophen 325 Mg Tablet) 650 mg PO Q6H PRN PRN Reason: Headache/Pain Mild Scale (1-3) Last Admin: 12/09/23 20:26 Dose: 650 mg Al Hydroxide/Mg Hydroxide (Magnesium Hydrox/Alum Hydrox 30 Ml Oral.Susp) 30 ml PO Q6H PRN PRN Reason: Heartburn/Nausea Albuterol Sulfate (Albuterol Sulfate 90 Mcg 8 Gm Inhaler) 2 puff INHALE Q6H PRN PRN Reason: Wheezing Amlodipine Besylate (Amlodipine Besylate 10 Mg Tablet) 10 mg PO DAILY [facility]; Protocol Last Admin: 12/10/23 08:13 Dose: 10 mg Benztropine Mesylate (Benztropine Mesylate 0.5 Mg Tablet) 0.5 mg PO BID [facility] Last Admin: 12/10/23 08:13 Dose: 0.5 mg Cyanocobalamin (Cyanocobalamin (Vitamin B-12) 1,000 Mcg Tablet) 2,000 mcg PO DAILY [facility] Last Admin: 12/10/23 08:13 Dose: 2,000 mcg Duloxetine HCl (Duloxetine Hcl 60 Mg Capsule.) 60 mg PO DAILY [facility] Last Admin: 12/10/23 08:13 Dose: 60 mg Ferrous Sulfate (Ferrous Sulfate 324 Mg Tablet.Dr) 324 mg PO BIDWM [facility] Last Admin: 12/10/23 08:13 Dose: 324 mg Haloperidol (Haloperidol 5 Mg Tablet) 5 mg PO TID [facility] Last Admin: 12/10/23 15:30 Dose: 5 mg Hydroxyzine HCl (Hydroxyzine Hcl 25 Mg Tablet) 25 mg PO Q6H PRN PRN Reason: Anxiety Lorazepam (Lorazepam 1 Mg Tablet) 1 mg PO Q6H PRN PRN Reason: Anxiety Last Admin: 12/09/23 20:26 Dose: 1 mg Magnesium Hydroxide (Milk Of Magnesia 30 Ml Oral.Susp) 30 ml PO DAILY PRN PRN Reason: Constipation Methadone HCl (Methadone Hcl 20 Mg/2 Ml Oral.Conc) 50 mg PO DAILY [facility] Last Admin: 12/10/23 08:14 Dose: 50 mg Multivitamins/Vitamin C (Multivitamin Tablet) 1 tab PO DAILY [facility] Last Admin: 12/10/23 08:13 Dose: 1 tab Nicotine (Nicotine 21 Mg Patch.Td24) 21 mg TRANSDERMA DAILY [facility] Last Admin: 12/10/23 08:14 Dose: 21 mg Polyethylene Glycol (Polyethylene Glycol 3350 17 Gm Powd.Pack) 17 gm PO DAILY [facility] Last Admin: 12/10/23 09:32 Dose: Not Given Tamsulosin HCl (Tamsulosin Hcl 0.4 Mg Capsule) 0.4 mg PO BEDTIME [facility] Last Admin: 12/09/23 20:26 Dose: 0.4 mg Thiamine HCl (Thiamine Hcl 100 Mg Tablet) 100 mg PO DAILY [facility] Last Admin: 12/10/23 08:13 Dose: 100 mg Trazodone HCl (Trazodone Hcl 50 Mg Tablet) 50 mg PO BEDTIME PRN PRN Reason: Insomnia Allergies Allergies Allergy/AdvReac Type Severity Reaction Status Date / Time No Known Allergies Allergy Verified 12/05/23 22:38 Assessment & Plan Assessment & Plan (1) MDD (major depressive disorder), recurrent episode, moderate: Status: Acute Code(s): F33.1 - Major depressive disorder, recurrent, moderate (2) Opioid use disorder: Status: Acute Code(s): F11.90 - Opioid use, unspecified, uncomplicated (3) Cognitive impairment: Status: Acute Code(s): R41.89 - Other symptoms and signs involving cognitive functions and awareness Plan Mr. La is a 68 year-old male with hx of depression, opioid use disorder who was transferred from [place] due to hypotention and KATHRYN. Pt reports some depression but his main concerns are related to multiple psychosocial stressors including needing more support in the community, concern about his memory. I do suspect there are moderate to severe memory impairments most likely in aspects such as visuospatial, executive function, recall. Will complete MOCA and ACL. He wants to renew license but concern about his ability to drive safely. We discussed risks, benefits and alternative treatment options. will continue current medication until further collateral information as pt very poor historian. NOte that methadone was increased on 12/03 by addiction medicine but pt has no recollection and asking for further increase. Hospital course: 12/07 Patient frustrated says his methadone was supposed to be titrated every day and it should be higher by now. Asks for it to be increased. Says that he would very much like to go back to [place] as soon as he can. Reports he is doing fine but he is bored on the unit, there is no activities and he is missing his AA meetings. Regarding methadone patient insists that he he used to be on methadone 750 mg in combination with oxycodone 560 mg and Also Ritalin 120 mg. PLAN 1. admit to S1, CV, 15 minutes checks -will titrate methadone to 50 mg 2. continue current medication 3. obtain collateral information 4. Aftercare planning. Reason for continued inpatient stay Substantial Risk for: inability to function, rapid decompensation and med/psych decompensation Time Spent With Patient Time: Total time managing care of this patient today __20__ minutes.
--- NOTE | 2023-12-10 19:12 | MHC.RECOVSUP ---
? Reason for consult Recovery Support o Current location: [address] o Identified substance use concern: Cocaine - Support ? Intervention: o Community resources provided o Harm reduction discussion ? Plan: o Patient to follow up with [facility] after discharge ? Additional information: Met with patient we talked about recovery and Harm reduction.. we talked about different pathways. Patient stated that he would like a tin recovery worker. a referral was made
[2023-12-10 20:00] VITALS: BP 147/70; PULSE 59; RESP 18; TEMP 36.3; O2SAT 100
[2023-12-10] MEDS: Tamsulosin HCL 0.4 MG CAPSULE PO (20:32)
[2023-12-10] MEDS: Acetaminophen 325 MG TABLET 650 MG PO (20:32)
[2023-12-10] MEDS: LORazepam 1 MG TABLET PO (21:11)
[2023-12-11 08:00] VITALS: BP 127/61; PULSE 66; RESP 14; O2SAT 94
[2023-12-11] MEDS: Benztropine Mesylate 0.5 MG TABLET PO ×2 (08:27→20:18)
[2023-12-11] MEDS: Nicotine 21 MG PATCH.TD24 TRANSDERMA (08:27)
[2023-12-11] MEDS: methADONE HCl 20 MG/2 ML ORAL.CONC 50 MG PO (08:27)
[2023-12-11] MEDS: Multivitamin TABLET 1 TAB PO (08:28)
[2023-12-11] MEDS: Ferrous Sulfate 324 MG TABLET.DR PO ×2 (08:28→16:01)
[2023-12-11] MEDS: Cyanocobalamin (Vitamin B-12) 1,000 MCG TABLET 2000 MCG PO (08:28)
[2023-12-11] MEDS: HaloperidoL 5 MG TABLET PO ×3 (08:28→20:18)
[2023-12-11] MEDS: Thiamine HCL 100 MG TABLET PO (08:28)
[2023-12-11] MEDS: DULoxetine HCl 60 MG CAPSULE.DR PO (08:28)
[2023-12-11] MEDS: amLODIPine Besylate 10 MG TABLET PO (08:28)
--- NOTE | 2023-12-11 15:10 | P.PNPSI_ITS ---
Subjective Subjective Date of Service: 12/11/23 Reason For Visit: mood Subjective Notes: Conditional Voluntary Interim History: The nursing staff reported the patient had been compliant with treatment. The occupational therapist reported that he goes to groups he is pleasant cooperative denies active depression. On interview the patient denies new symptoms he feels better. Mental Status Exam Mental Status Exam Patient Appearance: Appropriate Patient Orientation: Person and Situation Level of Consciousness: Awake and Appropriate Patient Behavior: Guarded and Passive Mood Description: Withdrawn Affect Description: Constricted Patient Cognition Impaired: Yes Ability to Follow Directions: Good Speech Pattern: Clear Hallucinations: None Delusions: Not Present Thought Process: Distracted and Slowed Thinking Thought Content: positive for [place] and positive for Poverty of Content Judgement: Fair Diagnostics Vital Signs (24Hr): Vital Signs - 24 hr 12/10/23 20:00 12/11/23 08:00 Temperature 97.4 F Pulse Rate 59 66 Respiratory Rate 18 14 Blood Pressure 147/70 H 127/61 Pulse Oximetry 100 94 Oxygen Delivery Method Room Air Room Air BMI result Body Mass Index 24.2 Labs 12/06/23 07:09 Medications Medications Current Medications Acetaminophen (Acetaminophen 325 Mg Tablet) 650 mg PO Q6H PRN PRN Reason: Headache/Pain Mild Scale (1-3) Last Admin: 12/10/23 20:32 Dose: 650 mg Al Hydroxide/Mg Hydroxide (Magnesium Hydrox/Alum Hydrox 30 Ml Oral.Susp) 30 ml PO Q6H PRN PRN Reason: Heartburn/Nausea Albuterol Sulfate (Albuterol Sulfate 90 Mcg 8 Gm Inhaler) 2 puff INHALE Q6H PRN PRN Reason: Wheezing Amlodipine Besylate (Amlodipine Besylate 10 Mg Tablet) 10 mg PO DAILY [facility]; Protocol Last Admin: 12/11/23 08:28 Dose: 10 mg Benztropine Mesylate (Benztropine Mesylate 0.5 Mg Tablet) 0.5 mg PO BID [facility] Last Admin: 12/11/23 08:27 Dose: 0.5 mg Cyanocobalamin (Cyanocobalamin (Vitamin B-12) 1,000 Mcg Tablet) 2,000 mcg PO DAILY [facility] Last Admin: 12/11/23 08:28 Dose: 2,000 mcg Duloxetine HCl (Duloxetine Hcl 60 Mg Capsule.Dr) 60 mg PO DAILY [facility] Last Admin: 12/11/23 08:28 Dose: 60 mg Ferrous Sulfate (Ferrous Sulfate 324 Mg Tablet.Dr) 324 mg PO BIDWM [facility] Last Admin: 12/11/23 08:28 Dose: 324 mg Haloperidol (Haloperidol 5 Mg Tablet) 5 mg PO TID [facility] Last Admin: 12/11/23 08:28 Dose: 5 mg Hydroxyzine HCl (Hydroxyzine Hcl 25 Mg Tablet) 25 mg PO Q6H PRN PRN Reason: Anxiety Lorazepam (Lorazepam 1 Mg Tablet) 1 mg PO Q6H PRN PRN Reason: Anxiety Last Admin: 12/10/23 21:11 Dose: 1 mg Magnesium Hydroxide (Milk Of Magnesia 30 Ml Oral.Susp) 30 ml PO DAILY PRN PRN Reason: Constipation Methadone HCl (Methadone Hcl 20 Mg/2 Ml Oral.Conc) 50 mg PO DAILY [facility] Last Admin: 12/11/23 08:27 Dose: 50 mg Multivitamins/Vitamin C (Multivitamin Tablet) 1 tab PO DAILY [facility] Last Admin: 12/11/23 08:28 Dose: 1 tab Nicotine (Nicotine 21 Mg Patch.Td24) 21 mg TRANSDERMA DAILY [facility] Last Admin: 12/11/23 08:27 Dose: 21 mg Polyethylene Glycol (Polyethylene Glycol 3350 17 Gm Powd.Pack) 17 gm PO DAILY [facility] Last Admin: 12/11/23 08:28 Dose: Not Given Tamsulosin HCl (Tamsulosin Hcl 0.4 Mg Capsule) 0.4 mg PO BEDTIME [facility] Last Admin: 12/10/23 20:32 Dose: 0.4 mg Thiamine HCl (Thiamine Hcl 100 Mg Tablet) 100 mg PO DAILY [facility] Last Admin: 12/11/23 08:28 Dose: 100 mg Trazodone HCl (Trazodone Hcl 50 Mg Tablet) 50 mg PO BEDTIME PRN PRN Reason: Insomnia Allergies Allergies Allergy/AdvReac Type Severity Reaction Status Date / Time No Known Allergies Allergy Verified 12/05/23 22:38 Assessment & Plan Assessment & Plan (1) MDD (major depressive disorder), recurrent episode, moderate: Status: Acute Code(s): F33.1 - Major depressive disorder, recurrent, moderate (2) Opioid use disorder: Status: Acute Code(s): F11.90 - Opioid use, unspecified, uncomplicated (3) Cognitive impairment: Status: Acute Code(s): R41.89 - Other symptoms and signs involving cognitive functions and awareness Plan Mr. La is a 68 year-old male with hx of depression, opioid use disorder who was transferred from [place] due to hypotention and KATHRYN. Pt reports some depression but his main concerns are related to multiple psychosocial stressors including needing more support in the community, concern about his memory. I do suspect there are moderate to severe memory impairments most likely in aspects such as visuospatial, executive function, recall. Will complete MOCA and ACL. He wants to renew license but concern about his ability to drive safely. We discussed risks, benefits and alternative treatment options. will continue current medication until further collateral information as pt very poor historian. NOte that methadone was increased on 12/03 by addiction medicine but pt has no recollection and asking for further increase. Hospital course: 12/07 Patient frustrated says his methadone was supposed to be titrated every day and it should be higher by now. Asks for it to be increased. Says that he would very much like to go back to [place] as soon as he can. Reports he is doing fine but he is bored on the unit, there is no activities and he is missing his AA meetings. Regarding methadone patient insists that he he used to be on methadone 750 mg in combination with oxycodone 560 mg and Also Ritalin 120 mg. PLAN 1. admit to S1, CV, 15 minutes checks -will titrate methadone to 50 mg 2. continue current medication 3. obtain collateral information 4. Aftercare planning. Reason for continued inpatient stay Substantial Risk for: inability to function, rapid decompensation and med/psych decompensation Time Spent With Patient Time: Total time managing care of this patient today __20__ minutes.
[2023-12-11 20:00] VITALS: BP 125/58; PULSE 62; RESP 16; TEMP 36.2; O2SAT 93
[2023-12-11] MEDS: LORazepam 1 MG TABLET PO (20:17)
[2023-12-11] MEDS: Tamsulosin HCL 0.4 MG CAPSULE PO (20:17)
[2023-12-11] MEDS: Acetaminophen 325 MG TABLET 650 MG PO (20:18)
[2023-12-12 08:00] VITALS: BP 122/60; PULSE 62; RESP 18; TEMP 36.7; O2SAT 94
[2023-12-12 08:46] VITALS: BP 122/60
[2023-12-12] MEDS: Ferrous Sulfate 324 MG TABLET.DR PO ×2 (08:46→17:10)
[2023-12-12] MEDS: Thiamine HCL 100 MG TABLET PO (08:46)
[2023-12-12] MEDS: amLODIPine Besylate 10 MG TABLET PO (08:46)
[2023-12-12] MEDS: Cyanocobalamin (Vitamin B-12) 1,000 MCG TABLET 2000 MCG PO (08:46)
[2023-12-12] MEDS: Acetaminophen 325 MG TABLET 650 MG PO ×2 (08:46→20:17)
[2023-12-12] MEDS: HaloperidoL 5 MG TABLET PO ×3 (08:47→20:16)
[2023-12-12] MEDS: Benztropine Mesylate 0.5 MG TABLET PO ×2 (08:47→20:16)
[2023-12-12] MEDS: Multivitamin TABLET 1 TAB PO (08:47)
[2023-12-12] MEDS: DULoxetine HCl 60 MG CAPSULE.DR PO (08:47)
[2023-12-12] MEDS: methADONE HCl 20 MG/2 ML ORAL.CONC 50 MG PO (08:48)
--- NOTE | 2023-12-12 11:58 | MHC.CLN ---
F/U PATIENT TAKING 100% AT MEALS. DIET=REGULAR WITH ENSURE BID. DENTAL PROBLEMS BUT STATED DOES NOT WANT MODIFIED CONSISTENCY FOODS. NO ADDITIONAL NUTRITION INTERVENTIONS AT THIS TIME.
--- NOTE | 2023-12-12 15:18 | P.PNPSI_ITS ---
Subjective Subjective Date of Service: 12/12/23 Reason For Visit: mood Subjective Notes: Conditional Voluntary Interim History: The nursing staff reported the patient had been pleasant, medication compliant. He slept 8 hours. The occupational therapist reported that he has delayed responses and he scored 21/30 on the [place] and 3.6 on the Holden test. On interview the patient denies new symptoms she feels less anxious and no evidence of suicidal ideation. We are discussing discharge planning. Mental Status Exam Mental Status Exam Patient Appearance: Well Grooomed and Appropriate Patient Orientation: Person and Situation Level of Consciousness: Awake and Appropriate Patient Behavior: Guarded and Passive Mood Description: Withdrawn Affect Description: Constricted Patient Cognition Impaired: Yes Ability to Follow Directions: Good Speech Pattern: Clear Hallucinations: None Delusions: Not Present Thought Process: Distracted Thought Content: positive for [place] and positive for Circumstantial Judgement: Fair Diagnostics Vital Signs (24Hr): Vital Signs - 24 hr 12/11/23 20:00 12/12/23 08:00 12/12/23 08:46 Temperature 97.1 F 98.1 F Pulse Rate 62 62 Respiratory Rate 16 18 Blood Pressure 125/58 L 122/60 122/60 Pulse Oximetry 93 94 Oxygen Delivery Method Room Air Room Air BMI result Body Mass Index 24.2 Labs 12/06/23 07:09 Medications Medications Current Medications Acetaminophen (Acetaminophen 325 Mg Tablet) 650 mg PO Q6H PRN PRN Reason: Headache/Pain Mild Scale (1-3) Last Admin: 12/12/23 08:46 Dose: 650 mg Al Hydroxide/Mg Hydroxide (Magnesium Hydrox/Alum Hydrox 30 Ml Oral.Susp) 30 ml PO Q6H PRN PRN Reason: Heartburn/Nausea Albuterol Sulfate (Albuterol Sulfate 90 Mcg 8 Gm Inhaler) 2 puff INHALE Q6H PRN PRN Reason: Wheezing Amlodipine Besylate (Amlodipine Besylate 10 Mg Tablet) 10 mg PO DAILY [facility]; Protocol Last Admin: 12/12/23 08:46 Dose: 10 mg Benztropine Mesylate (Benztropine Mesylate 0.5 Mg Tablet) 0.5 mg PO BID [facility] Last Admin: 12/12/23 08:47 Dose: 0.5 mg Cyanocobalamin (Cyanocobalamin (Vitamin B-12) 1,000 Mcg Tablet) 2,000 mcg PO DAILY [facility] Last Admin: 12/12/23 08:46 Dose: 2,000 mcg Duloxetine HCl (Duloxetine Hcl 60 Mg Capsule.Dr) 60 mg PO DAILY [facility] Last Admin: 12/12/23 08:47 Dose: 60 mg Ferrous Sulfate (Ferrous Sulfate 324 Mg Tablet.Dr) 324 mg PO BIDWM [facility] Last Admin: 12/12/23 08:46 Dose: 324 mg Haloperidol (Haloperidol 5 Mg Tablet) 5 mg PO TID [facility] Last Admin: 12/12/23 08:47 Dose: 5 mg Hydroxyzine HCl (Hydroxyzine Hcl 25 Mg Tablet) 25 mg PO Q6H PRN PRN Reason: Anxiety Lorazepam (Lorazepam 1 Mg Tablet) 1 mg PO Q6H PRN PRN Reason: Anxiety Last Admin: 12/11/23 20:17 Dose: 1 mg Magnesium Hydroxide (Milk Of Magnesia 30 Ml Oral.Susp) 30 ml PO DAILY PRN PRN Reason: Constipation Methadone HCl (Methadone Hcl 20 Mg/2 Ml Oral.Conc) 50 mg PO DAILY [facility] Last Admin: 12/12/23 08:48 Dose: 50 mg Multivitamins/Vitamin C (Multivitamin Tablet) 1 tab PO DAILY [facility] Last Admin: 12/12/23 08:47 Dose: 1 tab Nicotine (Nicotine 21 Mg Patch.Td24) 21 mg TRANSDERMA DAILY [facility] Last Admin: 12/11/23 08:27 Dose: 21 mg Polyethylene Glycol (Polyethylene Glycol 3350 17 Gm Powd.Pack) 17 gm PO DAILY [facility] Last Admin: 12/12/23 09:03 Dose: Not Given Tamsulosin HCl (Tamsulosin Hcl 0.4 Mg Capsule) 0.4 mg PO BEDTIME [facility] Last Admin: 12/11/23 20:17 Dose: 0.4 mg Thiamine HCl (Thiamine Hcl 100 Mg Tablet) 100 mg PO DAILY [facility] Last Admin: 12/12/23 08:46 Dose: 100 mg Trazodone HCl (Trazodone Hcl 50 Mg Tablet) 50 mg PO BEDTIME PRN PRN Reason: Insomnia Allergies Allergies Allergy/AdvReac Type Severity Reaction Status Date / Time No Known Allergies Allergy Verified 12/05/23 22:38 Assessment & Plan Assessment & Plan (1) MDD (major depressive disorder), recurrent episode, moderate: Status: Acute Code(s): F33.1 - Major depressive disorder, recurrent, moderate (2) Opioid use disorder: Status: Acute Code(s): F11.90 - Opioid use, unspecified, uncomplicated (3) Cognitive impairment: Status: Acute Code(s): R41.89 - Other symptoms and signs involving cognitive functions and awareness Plan Mr. La is a 68 year-old male with hx of depression, opioid use disorder who was transferred from [place] due to hypotention and KATHRYN. Pt reports some depression but his main concerns are related to multiple psychosocial stressors including needing more support in the community, concern about his memory. I do suspect there are moderate to severe memory impairments most likely in aspects such as visuospatial, executive function, recall. Will complete MOCA and ACL. He wants to renew license but concern about his ability to drive safely. We discussed risks, benefits and alternative treatment options. will continue current medication until further collateral information as pt very poor historian. NOte that methadone was increased on 12/03 by addiction medicine but pt has no recollection and asking for further increase. Hospital course: 12/07 Patient frustrated says his methadone was supposed to be titrated every day and it should be higher by now. Asks for it to be increased. Says that he would very much like to go back to [place] as soon as he can. Reports he is doing fine but he is bored on the unit, there is no activities and he is missing his AA meetings. Regarding methadone patient insists that he he used to be on methadone 750 mg in combination with oxycodone 560 mg and Also Ritalin 120 mg. PLAN 1. admit to S1, CV, 15 minutes checks -will titrate methadone to 50 mg 2. continue current medication 3. obtain collateral information 4. Aftercare planning. Reason for continued inpatient stay Substantial Risk for: inability to function, rapid decompensation and med/psych decompensation Time Spent With Patient Time: Total time managing care of this patient today __20__ minutes.
[2023-12-12 20:00] VITALS: BP 131/63; PULSE 57; RESP 16; TEMP 36.5; O2SAT 94
[2023-12-12] MEDS: Tamsulosin HCL 0.4 MG CAPSULE PO (20:16)
[2023-12-12] MEDS: LORazepam 1 MG TABLET PO (20:16)
[2023-12-13 07:00] VITALS: BMI 24.7
[2023-12-13] MEDS: methADONE HCl 20 MG/2 ML ORAL.CONC 50 MG PO (07:51)
[2023-12-13 07:54] VITALS: BP 132/68
[2023-12-13] MEDS: Thiamine HCL 100 MG TABLET PO (07:54)
[2023-12-13] MEDS: Multivitamin TABLET 1 TAB PO (07:54)
[2023-12-13] MEDS: Benztropine Mesylate 0.5 MG TABLET PO (07:54)
[2023-12-13] MEDS: DULoxetine HCl 60 MG CAPSULE.DR PO (07:54)
[2023-12-13] MEDS: amLODIPine Besylate 10 MG TABLET PO (07:54)
[2023-12-13] MEDS: Ferrous Sulfate 324 MG TABLET.DR PO (07:55)
[2023-12-13] MEDS: Cyanocobalamin (Vitamin B-12) 1,000 MCG TABLET 2000 MCG PO (07:55)
[2023-12-13] MEDS: HaloperidoL 5 MG TABLET PO (07:55)
[2023-12-13] MEDS: Nicotine 21 MG PATCH.TD24 TRANSDERMA ×2 (07:56→08:02)
[2023-12-13 08:00] VITALS: BP 132/68; PULSE 65; RESP 16; TEMP 36.6; O2SAT 98
--- NOTE | 2023-12-13 09:13 | P.DS_ITS ---
DS: Providers Provider Date of Service: 12/13/23 Date of admission: 12/05/23 18:44 Date of discharge: 12/13/23 Primary care physician: Unknown Physician Consults: 12/07/23 15:45 Addiction Medicine Routine Consulting Provider: Addiction Covering Reason for consultation: tin recovery worker Has provider been notified: Yes Attending physician on discharge: Forrest Hastings DS: Diagnosis Discharge Diagnosis (1) MDD (major depressive disorder), recurrent episode, moderate: Status: Acute (2) Opioid use disorder: Status: Inactive (3) Cognitive impairment: Status: Acute DS: Medications Discharge Medications Home Medications: Home Medications ?Medication ?Instructions ?Recorded ?Confirmed acetaminophen 325 mg tablet 650 mg PO Q6H PRN Pain 12/02/23 12/05/23 albuterol sulfate 90 mcg/actuation 2 puff inhalation Q6H PRN Wheezing 12/02/23 12/05/23 aerosol inhaler benztropine 0.5 mg tablet 0.5 mg PO BID 12/02/23 12/05/23 cyanocobalamin (vitamin B-12) 2,000 mcg PO DAILY 12/02/23 12/05/23 1,000 mcg tablet duloxetine 60 mg capsule,delayed 60 mg PO DAILY 12/02/23 12/05/23 release ferrous sulfate 325 mg (65 mg 325 mg PO BIDWM 12/02/23 12/05/23 iron) tablet,delayed release multivitamin 1 tab PO DAILY 12/02/23 12/05/23 nicotine 21 mg/24 hr daily 1 patch topical DAILY 12/02/23 12/05/23 transdermal patch polyethylene glycol 3350 17 17 g PO DAILY 12/02/23 12/05/23 gram/dose oral powder (Miralax) tamsulosin 0.4 mg capsule 0.4 mg PO BEDTIME 12/02/23 12/05/23 thiamine mononitrate (vit B1) 100 100 mg PO DAILY 12/02/23 12/05/23 mg tablet trazodone 50 mg tablet 50 mg PO BEDTIME PRN Insomnia 12/02/23 12/05/23 Previous Rx's ?Medication ?Instructions ?Recorded amlodipine 10 mg tablet 10 mg PO DAILY #30 tabs 12/05/23 haloperidol 5 mg tablet 5 mg PO TID #90 tabs 12/05/23 lorazepam 1 mg tablet 1 mg PO Q6H PRN Anxiety #30 tabs 12/05/23 methadone 10 mg/mL oral 45 mg (4.5 mL) PO DAILY #30 mL 12/05/23 concentrate (Methadose) Mental Status Exam Mental Status Exam Patient Appearance: Well Grooomed and Appropriate Patient Orientation: Person, Place and Situation Level of Consciousness: Awake and Appropriate Patient Behavior: Guarded and Passive Mood Description: Withdrawn Affect Description: Constricted Patient Cognition Impaired: Yes Ability to Follow Directions: Good Speech Pattern: Clear Hallucinations: None Delusions: Not Present Thought Process: Linear Thought Content: positive for Circumstantial Judgement: Fair DS: Summary Hospital Course Hospital Course: The patient is a 68-year-old male who was initially admitted at [facility] for suicidal ideation. After receiving his 1st dose of medications his mental status deteriorated that he was transferred to the emergency room of [facility] for medical assessment. After being assessed in the emergency room he was admitted into the hospital for psychiatric stabilization. After being medically cleared he was transferring to this facility for continuation of care. On admission the patient reported that he was been depressed, Cymbalta was continued on his methadone was titrated up to 50 mg p.o. daily due to cravings. The patient was able to participate in groups he was future oriented and there were no safety concerns. The health care social worker contact his collateral information and apparently the patient lives in a trailer home, he has missed limited social support but he is able to continue his treatment as an outpatient. Since there were no safety concerns discharge planning was discussed. Time spent discussing smoking cessation with patient: 3 to 10 minutes Status at Discharge Cognitive/behavioral status at discharge: At baseline Functional status at discharge: independent ambulation Overall status at discharge: patient is back to baseline Time Spent with Patient Time attestation: Total time managing care of this patient today __30__ minutes. Time spent: Less than 30 minutes Discharge Plan Discharge Anticipated Discharge Date/Time: 12/13/23 09:59 Patient Disposition: Home, Self-Care Discharge Diagnosis: Opiate use disorder Cocaine use disorder Major depressive disorder recurrent episode severe without psychosis Referrals: [facility] [Other] - 1 Week (Your hearing care professional Jack Onofre will follow up with you after discharge. Your have a community based behavioral health clinician Barbra Acosta and she will schedule home visit once you discharge. Please be available by phone. You also have community program assistant Giacomo Gaffney You have a Geriatric Support Services Coorindator Lucero Martinez who will also follow up with you by phone. ) [facility] [Other] - 1 Week (You have 45 hours of personal care and homemaking hours authorized for [facility] with [employer]. You are authorized for home delivered meals. You are also able to receive money management services. Services will resume at time of discharge. Your Case jeremiah is Gordon Brody [phone] ext [phone]) [facility] [Other] - 1 Week [facility] [Other] - 12/14/23 7:00 am (You will receive last dose letter from [facility] and follow up with Methadone clinic. You have [facility] transport set up to bring you to the clinic daily, starting 12/13 and through 05/13/24. Transport will pick you up at your home at 7am and pick you u p at the clinic to bring you home at 8am. ) Psych Prescriber: Mariah ([facility]) [Other] - 12/20/23 9:00 am (Appointment is in person at the office ) Discharge Medications: New multivitamin [Daily-[place]] Tablet 1 tab PO DAILY 30 Days Qty: 30 0RF acetaminophen 325 mg Tablet 650 mg PO Q6H PRN (Reason: Headache/Pain Mild Scale (1-3)) 30 Days Qty: 60 0RF benztropine 0.5 mg Tablet 0.5 mg PO BID 30 Days Qty: 60 0RF haloperidol 5 mg Tablet 5 mg PO TID 30 Days Qty: 90 0RF polyethylene glycol 3350 17 gram Powder In Packet 17 g PO DAILY 30 Days Qty: 30 0RF cyanocobalamin (vitamin B-12) [Vitamin B-12] 1,000 mcg Tablet 2,000 mcg PO DAILY 30 Days Qty: 60 0RF tamsulosin 0.4 mg Capsule 0.4 mg PO BEDTIME 30 Days Qty: 30 0RF amlodipine 10 mg Tablet 10 mg PO DAILY 30 Days Qty: 30 0RF Protocol: Hold for SBP< HOLD for SBP < : 90 methadone [Methadose] 10 mg/mL Concentrate 50 mg PO DAILY 30 Days Qty: 150 0RF Rx Instructions: Partial Fill upon patient request. lorazepam 1 mg Tablet 1 mg PO Q6H PRN (Reason: Anxiety) 30 Days Qty: 60 0RF albuterol sulfate [Ventolin HFA] 90 mcg/actuation Hfa Aerosol Inhaler 2 puff inhalation Q6H PRN (Reason: Wheezing) 30 Days Qty: 1 0RF duloxetine 60 mg Capsule,Delayed Release(Dr/Ec) 60 mg PO DAILY 30 Days Qty: 30 0RF ferrous sulfate 324 mg (65 mg iron) Tablet,Delayed Release (Dr/Ec) 324 mg PO BIDWM 30 Days Qty: 60 0RF thiamine mononitrate (vit B1) 100 mg Tablet 100 mg PO DAILY 30 Days Qty: 30 0RF naloxone [Narcan] 4 mg/actuation spray,non-aerosol 1 spray intranasal Q2M Qty: 2 0RF Rx Instructions: spray 1 dose into ONE nostril; alternate nostrils w each dose until help arrives Discontinued multivitamin Tablet 1 tab PO DAILY acetaminophen 325 mg Tablet 650 mg PO Q6H PRN (Reason: Pain) benztropine 0.5 mg Tablet 0.5 mg PO BID trazodone 50 mg tablet 50 mg PO BEDTIME PRN (Reason: Insomnia) cyanocobalamin (vitamin B-12) 1,000 mcg Tablet 2,000 mcg PO DAILY tamsulosin 0.4 mg capsule 0.4 mg PO BEDTIME nicotine 21 mg/24 hr patch 24 hour 1 patch topical DAILY albuterol sulfate 90 mcg/actuation Hfa Aerosol Inhaler 2 puff INHALATION Q6H PRN (Reason: Wheezing) ferrous sulfate 325 mg (65 mg iron) tablet,delayed release (DR/EC) 325 mg PO BIDWM duloxetine 60 mg capsule,delayed release(DR/EC) 60 mg PO DAILY thiamine mononitrate (vit B1) 100 mg tablet 100 mg PO DAILY polyethylene glycol 3350 [Miralax] 17 gram/dose Powder 17 g PO DAILY amlodipine 10 mg Tablet 10 mg PO DAILY Qty: 30 0RF Protocol: Hold for SBP< HOLD for SBP < : 90 lorazepam 1 mg Tablet 1 mg PO Q6H PRN (Reason: Anxiety) Qty: 30 0RF haloperidol 5 mg Tablet 5 mg PO TID Qty: 90 0RF methadone [Methadose] 10 mg/mL Concentrate 45 mg PO DAILY Qty: 30 0RF Rx Instructions: Partial Fill upon patient request. Discharge Orders: Discharge Order (Routine); Ordered 12/13/23 Ordered By: Forrest Hastings Diet: Advance to usual diet Activity on Discharge: As tolerated Stand Alone Forms: Patient Portal Discharge page Print Language: Senegalese Care Plan Goals: Care plan goals achieved in this admission Health Concerns: Continue with outpatient providers Plan of Treatment: Continue treatment with methadone clinic. Continue with outpatient providers in Psychiatry. Assessment: The patient is an elderly male with a past history of opiate use disorder, cocaine use disorder and major depressive disorder who was initially admitted to the hospital for altered mental status. He was medically cleared and transferring to this facility for psychiatric stabilization. The patient i mproved, he was future oriented and he was willing to continue treatment as an outpatient.
--- NOTE | 2023-12-13 11:33 | PC.NURSE ---
Patient alert and oriented x4. Verbalized readiness for discharge. All follow up appointments in place and reviewed with Willian. Medications reviewed and picked [place] [facility] [place]. Belongings accounted for and returned to Willian. Denies SI/HI/AVh. Willian reports he feels safe for discharge home. Escorted to front of hospital by TW where he was picked up by cement mixer driver.
== END 2023-12-13 11:22 | disposition home or self-care (01) | DRG 885 ==
PROVIDERS: Admitting Provider Psychiatry & Neurology Psychiatry; Visit Provider Psychiatry & Neurology Psychiatry
DX: F33.1 Major depressive disorder, recurrent, moderate (principal); F11.20 Opioid dependence, uncomplicated; I10 Essential (primary) hypertension; R41.89 Other symptoms and signs involving cognitive functions and awareness; F17.210 Nicotine dependence, cigarettes, uncomplicated; Z71.6 Tobacco abuse counseling; Z59.7 Insufficient social insurance and welfare support; Z79.899 Other long term (current) drug therapy
CPT/HCPCS: 36415; 80053; 80061

== ENCOUNTER → 2023-12-05 18:44 | Outpatient (BNV) | payer OTHER, SELFPAY | PROVIDERS: Admitting Provider Psychiatry & Neurology Psychiatry; Visit Provider Psychiatry & Neurology Psychiatry | DX: F33.1 Major depressive disorder, recurrent, moderate (principal); F11.90 Opioid use, unspecified, uncomplicated; R41.89 Other symptoms and signs involving cognitive functions and awareness | CPT/HCPCS: 90792; 99231; 99232; 99238 ==